=== PATIENT | male | born 1960 | race Caucasian/White ===

== ENCOUNTER 2020-03-18 07:46 | Day surgery (SDC) | payer BC, SELFPAY ==
[2020-03-18] VITALS (9 sets, daily range): BP systolic 108–162; BP diastolic 68–101; PULSE 69–88; RESP 14–18; TEMP 36.4–37; O2SAT 94–100
--- NOTE | ~2020-03-18 | XR_ITS ---
EXAMINATION: XR abdomen/kub 1V DATE: 03/18/2020 09:17 INDICATION: Right flank pain. TECHNIQUE: A supine view of the abdomen on 2 radiographs was obtained. COMPARISON: CT abdomen and pelvis 03/18/2020 FINDINGS: There are no dilated loops of bowel. There is a 5 x 6 mm stone in proximal right ureter. IMPRESSION: 1. 5 x 6 mm stone in proximal right ureter. Reviewed, dictated and finalized at location A.
--- NOTE | ~2020-03-18 | CT_ITS ---
EXAMINATION: CT abdomen pelvis wo con EXAM DATE: 03/18/2020 08:45 INDICATION: Right flank pain. History of nephrolithiasis. TECHNIQUE: Spiral CT of the abdomen and pelvis was performed without contrast. Axial, coronal and sag ittal images were reviewed. The dose-length product (DLP) for this examination was 339.67 mGy-cm. T he exposure was tailored according to patient size (auto mA exposure control), and iterative reconstr uction (ASIR) was used as additional dose reduction technique. Comparison is made to prior examinatio n from 03/23/2016. FINDINGS: There is a stone in the proximal aspect of the right ureter, at the L3-4 disc space level m easuring 5 x 6 mm. There is mild to moderate right-sided obstructive nephropathy. Additional 3 mm rig ht inferior calyceal stone and 2 mm left superior calyceal stone. The prostate is unremarkable. The bladder is unremarkable. There is a left adrenal gland adenoma measuring 1.0 cm. Otherwise unremarka ble Gallbladder is unremarkable. No biliary obstruction. There is no retroperitoneal or pelvic lym phadenopathy. There is a left inguinal hernia which is moderate in size and contains nonobstructed sigmoid colon. Status post right inguinal hernia repair. The appendix is normal. There is mild sigmoid colonic diverticulosis. There is no adjacent inflammat ory change to suggest diverticulitis. The stomach and small bowel are unremarkable. There is expecte d amount of colonic stool. No free intraperitoneal gas. The heart is normal in size. There are n o pericardial or pleural effusions. The lung bases are unremarkable. There are no osteoblastic or o steolytic lesions identified. IMPRESSION: 1. Right proximal ureteral 5 x 6 mm stone, mild to moderate obstructive nephropathy. 2. Bilateral nephrolithiasis. 3. Left inguinal hernia containing nonobstructed sigmoid colon. 4. Mild colonic diverticulosis. Urologist consultants would appreciate KUB as baseline for follow-up, treatment planning. Reviewed, dictated and finalized at location A. IMPRESSION: 1. Right proximal ureteral 5 x 6 mm stone, mild to moderate obstructive nephro liliana. 2. Bilateral nephrolithiasis. 3. Left inguinal hernia containing nonobstructed sigmoid colon. 4. Mild colonic diverticulosis. Urologist consultants would appreciate KUB as baseline for follow-up, treatment planning.
--- NOTE | ~2020-03-18 | XR_ITS ---
EXAMINATION: XR retrograde pyelo w/stent RT DATE: 03/18/2020 12:05 INDICATION: Right ureteral stone. TECHNIQUE: 10 intraoperative fluoroscopic views of the abdomen and pelvis were obtained. I was not pr esent. Fluoroscopy exposure time was 48 seconds. COMPARISON: CT abdomen and pelvis 03/18/2010 FINDINGS: The right-sided retrograde pyelogram is unremarkable. The final images demonstrate a right internal ureteral stent in expected position. IMPRESSION: 1. Right internal ureteral stent in expected position. Reviewed, dictated and finalized at location A.
--- NOTE | 2020-03-18 08:02 | ED.GENADULT ---
HPI - General Adult General Chief complaint: Back Pain/Injury Stated complaint: Flank Pain Time Seen by Provider: 03/18/20 08:02 Source: patient Mode of arrival: ambulatory Limitations: no limitations History of Present Illness HPI narrative: Patient is a 59-year-old male who presents for evaluation of right flank pain. Flank pain became severe this morning after being dull and aching yesterday. Associated with nausea, no emesis. No fever, associated with hematuria and some pressure with urination. No dysuria. Patient states he has a history of nephrolithiasis approximately 5 years previously. Does not currently follow with any urologist. Pain is sharp, stabbing in nature in the right flank. Not worsened with movement. Related Data Home Medications Medication Instructions Recorded Confirmed Januvia 100 mg PO DAILY 03/18/20 03/18/20 leflunomide 20 mg PO DAILY 03/18/20 03/18/20 metformin 500 mg PO QPM 03/18/20 03/18/20 prednisone 10 mg PO DAILY 03/18/20 03/18/20 simvastatin 20 mg PO DAILY 03/18/20 03/18/20 Allergies Allergy/AdvReac Type Severity Reaction Status Date / Time neomycin Allergy Intermediate Rash Verified 03/18/20 08:12 Review of Systems Review of Systems: Narrative: CONSTITUTIONAL: Denies fever CARDIOVASCULAR: Denies chest pain RESPIRATORY: Denies cough or dyspnea. GASTROINTESTINAL: Denies abdominal pain, reports right flank pain : Reports hematuria, hesitancy SKIN: Denies rash MUSCULOSKELETAL: Denies back pain NEUROLOGIC: Denies headache PMFSH Past Medical History Medical History Diabetes Hyperlipidemia Nephrolithiasis Sleep apnea Surgical History Surgical History H/O inguinal hernia repair Family History Family History Other Diabetes mellitus Social History Social History Smoking status: Former smoker Alcohol intake: current Gender identity (if verbalized by the patient): Male Exam Narrative: Exam Narrative: GENERAL: Awake, alert, conversant, uncomfortable. HEAD: Normocephalic, atraumatic. EYES: PERRLA and EOMI. ENT: Nares clear, no rhinorrhea or epistaxis. Mucous membranes moist. NECK: Supple. CHEST: No respiratory distress, breathing even and non labored HEART: Regular rate, sinus rhythm ABDOMEN:Non distended, non tender, no reproducible flank tenderness EXTREMITIES: Normal range of motion. No edema. SKIN: Warm, dry, no rash. NEURO:No focal deficits. Alert and oriented x3 Course Vital Signs Vital signs: Vital Signs Temperature 36.6 C 03/18/20 08:08 Pulse Rate 77 03/18/20 08:08 Respiratory Rate 18 03/18/20 08:08 Blood Pressure 162/101 H 03/18/20 08:08 Pulse Oximetry 98 03/18/20 08:08 Temperature 36.8 C 03/18/20 12:20 Pulse Rate 80 03/18/20 13:25 Respiratory Rate 16 03/18/20 13:25 Blood Pressure 108/68 03/18/20 13:25 Pulse Oximetry 94 03/18/20 12:35 Medical Decision Making [facility] Narrative Medical decision making narrative: Patient is a 5-year-old with a history of nephrolithiasis who presented for evaluation of right flank pain. The time of initial assessment, patient is quite uncomfortable appearing. Symptoms do seem most consistent with renal colic. IV access obtained and labs were drawn. Patient was given IV fluids, antiemetic and pain medication. He did require numerous doses of IV pain medication in the ER. Patient with a 5 x 6 mm proximal right ureteral stone. No GUICHO. Given size, location, urology was consulted, Dr. Ospina will choose to take this patient to the OR for stenting. Given high blood cells present in urinalysis, patient was given Rocephin in the emergency department. Patient transferred to the OR waiting area in stable condition. Differential Diagnosis Differential
[2020-03-18 08:13] LABS: Basophils Absolute Auto 0.1 K/mm3 (0.0-0.1); Basophils Percent Auto 0.9 % (0.2-1.2); Eosinophils Absolute Auto 0.3 K/mm3 (0-0.3); Eosinophils Percent Auto 3.4 % (0-4.4); Hematocrit 42.8 % (42.0-52.0); Hemoglobin 14.1 g/dL (14.0-18.0); Immature Granulocyte Absolute 0.03 K/mm3 (0.00-0.031); Immature Granulocyte Percent A 0.4 % (0-0.5); Lymphocytes Absolute Auto 2.06 K/mm3 (0.9-3.2); Lymphocytes Percent Auto 27.9 % (18.3-44.2); Mean Corpuscular HGB Conc 32.9 g/dl (32-36); Mean Corpuscular Hemoglobin 28.7 pg (26-34); Mean Platelet Volume 10.7 fl (7.4-10.4); Monocytes Absolute Auto 0.7 K/mm3 (0.1-0.6); Monocytes Percent Auto 8.8 % (2.6-8.5); Neutrophils Absolute Auto 4.3 K/mm3 (1.3-6.7); Neutrophils Percent Auto 58.6 % (45.5-73.1); Platelet Count Result 161 k/mm3 (150-375); Red Blood Count 4.92 M/mm3 (4.6-6.20); Red Cell Distribution Width 13.1 % (11.5-14.5); White Blood Count 7.4 K/mm3 (4.5-10.0)
[2020-03-18 08:26] LABS: Alanine Aminotransferase 27 U/L (4-50); Albumin Level 4.3 g/dL (3.5-5.1); Alkaline Phosphatase 47 U/L (38-126); Aspartate Amino Transferase 26 U/L (17-59); Bilirubin,Total 0.5 mg/dL (0.2-1.3); Blood Urea Nitrogen 23 mg/dL (9-20); Calcium 9.2 mg/dL (8.4-10.2); Carbon Dioxide 26 mmol/L (22-30); Chloride 102 mmol/L (98-107); Estimated CRCL calculation 118 ml/min; Estimated Glomerular Filt Rate > 60; Glucose 219 mg/dL (75-110); Lipase 362 U/L (23-300); Potassium 4.3 mmol/L (3.4-5.0); Sodium 137 mmol/L (137-145)
[2020-03-18] MEDS: SODIUM CHLORIDE 0.9% IV 1,000 ML 999 ML IV CONT (08:28)
[2020-03-18] MEDS: ONDANSETRON INJ 4 MG/2 ML VIAL IV PUSH (08:28)
[2020-03-18] MEDS: MORPHINE SULFATE 4 MG/ML INJ IV PUSH (08:30)
[2020-03-18 09:50] LABS: Add Urine Microscopic? YES; Appearance Urine Cloudy (Clear); Bilirubin Urine Negative (Negative); Blood Urine 3+ (Negative); Color Urine Yellow (Yellow); Glucose Urine UA 2+ mg/dL (Negative); Ketones Urine Negative (Negative); Leukocyte Esterase Ur Negative LEU/UL (Negative); Mucus Urine Rare /lpf; Nitrate Urine Negative (Negative); Protein Urine 2+ mg/dL (Negative); RBC Urine >75 /hpf (0-2); Specific Grav Ur 1.025 (1.001-1.035); Urobilinogen Urine Negative mg/dL (<2.0); WBC Urine 51-75 /hpf
--- NOTE | 2020-03-18 10:05 | PM.IMHP ---
H&P: HPI History of Present Illness Chief complaint: Flank Pain Narrative: Darinel Arteaga is a 59 year old male Who presented to the emergency room with right flank pain. Evaluation revealed a 5-6 mm obstructing proximal right ureteral calculus with hydronephrosis. There were having difficulty controlling his pain in the emergency room. Does state that he has had a history of stones many years ago. Will proceed with cystoscopy with right retrograde pyelogram and stent placement at a minimum. Will most likely require outpatient lithotripsy at a later point time. [facility] Past Medical History Medical History Diabetes Hyperlipidemia Nephrolithiasis Sleep apnea Surgical History Surgical History H/O inguinal hernia repair Family History Family History Other Diabetes mellitus Social History Social History Smoking status: Former smoker Alcohol intake: current Gender identity (if verbalized by the patient): Male Meds Home Medications and Allergies Home Medications Medication Instructions Recorded Confirmed Type leflunomide mg 03/18/20 History metformin mg PO 03/18/20 History prednisone 10 mg 03/18/20 History simvastatin mg 03/18/20 History sitagliptin [Januvia] mg 03/18/20 History Allergies Allergy/AdvReac Type Severity Reaction Status Date / Time neomycin Allergy Intermediate Rash Verified 03/18/20 08:12 Vital Signs Vital Signs - 24 hr 03/18/20 08:08 03/18/20 09:27 Temperature 36.6 C Pulse Rate 77 83 Respiratory Rate 18 18 Blood Pressure 162/101 H 148/86 H Pulse Oximetry 98 97 Exam Const: General: uncomfortable HENMT: General nose exam: Normal nares present Resp: Effort & Inspection: normal respiratory effort Cardio: Rhythm: regular rhythm H&P: Results Labs Labs: Short CBC 03/18/20 Range/Units 08:06 WBC 7.4 (4.5-10.0) K/mm3 Hgb 14.1 (14.0-18.0) g/dL Hct 42.8 (42.0-52.0) % Plt Count 161 (150-375) k/mm3 BMP 03/18/20 08:06 Sodium 137 Potassium 4.3 Chloride 102 Carbon Dioxide 26 BUN 23 H Creatinine 0.80 Glucose 219 H Calcium 9.2 Liver Function 03/18/20 Range/Units 08:06 Total Bilirubin 0.5 (0.2-1.3) mg/dL AST 26 (17-59) U/L ALT 27 (4-50) U/L Alkaline Phosphatase 47 (38-126) U/L Albumin 4.3 (3.5-5.1) g/dL Urine 03/18/20 Range/Units 09:37 Urine Color Yellow (Yellow) Urine Appearance Cloudy H (Clear) Urine pH 7.0 (5.0-9.0) Ur Specific [place] 1.025 (1.001-1.035) Urine Protein 2+ H (Negative) mg/dL Urine Glucose (UA) 2+ H (Negative) mg/dL Assessment and Plan Assessment and plan (1) Right ureteral calculus: Code(s): N20.1 - Calculus of ureter Status: Acute Assessment and Plan: plan is for cystoscopy right retrograde pyelogram right stent placement. If the stone has migrated will possibly try ureteroscopy with stone extraction and laser. If the stone is still located fairly proximally then he will require outpatient lithotripsy.
[2020-03-18] MEDS: LACTATED RINGERS 1,000 ML 30 ML IV CONT ×2 (10:20→12:29)
--- NOTE | 2020-03-18 10:39 | ECG_ITS ---
Measurements Intervals [place] Rate: 71 P: 22 NM: 159 QRS: 50 QRSD: 108 T: 39 QT: 379 QTc: 415 Interpretive Statements SINUS RHYTHM NORMAL ECG Electronically Signed On 03-18-2020 10:53:24 CDT by Riky Asif D.O.
--- NOTE | 2020-03-18 10:40 | WPDANESEPPF ---
Anes - Initial Pre Proc Eval Procedure: Operation Date: 03/18/20 11:00 Proposed Procedures p Cystoscopy, Right Retrograde Pyelogram, Right Stent Placement, Possible Right Ureteroscopy with Stone Extraction - Bryan Ospina MD s Possible Holmium Laser Procedure - Bryan Ospina MD Date/Time: 03/18/20 10:40 Surgeon: Bryan Ospina MD Pre Op Diagnosis: Flank Pain Patient Data Age: 59 Gender: M Height: 6 ft 4 in Weight: 113.4 kg Last Vital Signs Temp 98.6 F 03/18/20 10:28 Pulse 69 03/18/20 10:28 Resp 18 03/18/20 10:28 BP 154/85 H 03/18/20 10:28 Pulse Ox 99 03/18/20 10:28 Allergies Allergy/AdvReac Type Severity Reaction Status Date / Time neomycin Allergy Intermediate Rash Verified 03/18/20 08:12 Home Medications Medication Instructions Recorded Confirmed Type leflunomide 20 mg PO DAILY 03/18/20 03/18/20 History metformin mg PO 03/18/20 History prednisone 10 mg 03/18/20 History simvastatin mg 03/18/20 History sitagliptin [Januvia] mg 03/18/20 History Laboratory Tests 03/18/20 03/18/20 03/18/20 08:06 08:06 08:06 WBC 7.4 K/mm3 K/mm3 (4.5-10.0) RBC 4.92 M/mm3 M/mm3 (4.6-6.20) Hgb 14.1 g/dL g/dL (14.0-18.0) Hct 42.8 % % (42.0-52.0) MCV 87.0 fl fl (80-100) MCH 28.7 pg pg (26-34) MCHC 32.9 g/dl g/dl (32-36) RDW 13.1 % % (11.5-14.5) Plt Count 161 k/mm3 k/mm3 (150-375) MPV 10.7 fl H fl (7.4-10.4) Immature Gran % (Auto) 0.4 % % (0-0.5) Neut % (Auto) 58.6 % % (45.5-73.1) Lymph % (Auto) 27.9 % % (18.3-44.2) [place] % (Auto) 8.8 % H % (2.6-8.5) Eos % (Auto) 3.4 % % (0-4.4) Baso % (Auto) 0.9 % % (0.2-1.2) Lymph # (Auto) 2.06 K/mm3 K/mm3 (0.9-3.2) [place] # (Auto) 0.7 K/mm3 H K/mm3 (0.1-0.6) Eos # (Auto) 0.3 K/mm3 K/mm3 (0-0.3) Baso # (Auto) 0.1 K/mm3 K/mm3 (0.0-0.1) Abs Immat Gran (auto) 0.03 K/mm3 K/mm3 (0.00-0.031) Absolute Neuts (auto) 4.3 K/mm3 K/mm3 (1.3-6.7) Absolute Nucleated RBC 0.0 K/mm3 K/mm3 (0.0-0.012) Nucleated RBC % 0.0 % % (0.0-0.2) Sodium 137 mmol/L mmol/L (137-145) Potassium 4.3 mmol/L mmol/L (3.4-5.0) Chloride 102 mmol/L mmol/L (98-107) Carbon Dioxide 26 mmol/L mmol/L (22-30) BUN 23 mg/dL H mg/dL (9-20) Creatinine 0.80 mg/dL mg/dL (0.7-1.3) Estim Creat Clear Calc 118 ml/min ml/min Estimated GFR > 60 (59 - ) Glucose 219 mg/dL H mg/dL (75-110) Calcium 9.2 mg/dL mg/dL (8.4-10.2) Total Bilirubin 0.5 mg/dL mg/dL (0.2-1.3) AST 26 U/L U/L (17-59) ALT 27 U/L U/L (4-50) Alkaline Phosphatase 47 U/L U/L (38-126) Total Protein 7.0 g/dL g/dL (6.3-8.2) Albumin 4.3 g/dL g/dL (3.5-5.1) Lipase 362 U/L H U/L (23-300) Urine Color Urine Appearance Urine pH Ur Specific [place] Urine Protein Urine Glucose (UA) Urine Ketones Ur Blood (Man) Urine Nitrate Urine Bilirubin Urine Urobilinogen Leukocyte Esterase Rfl Urine RBC Urine WBC Urine Mucus 03/18/20 09:37 WBC RBC Hgb Hct MCV MCH MCHC RDW Plt Count MPV Immature Gran % (Auto) Neut % (Auto) Lymph % (Auto) [place] % (Auto) Eos % (Auto) Baso % (Auto) Lymph # (Auto) [place] # (Auto) Eos # (Auto) Baso # (Auto) Abs Immat Gran (auto) Absolute Neuts (auto) Absolute Nucleated RBC Nucleated RBC % Sodium Potassium
[2020-03-18] MEDS: LIDOCAINE HCL 2% GEL UROJET 10 ML PKG MUCOUS MEM (11:04)
--- NOTE | 2020-03-18 11:42 | PM.PROC ---
Procedure Note - Detailed Date of procedure: 03/18/20 Pre-op diagnosis: Flank Pain 6 mm right proximal ureteral calculus Post-op diagnosis: same Procedure performed: cystoscopy, right retrograde pyelogram, right ureteroscopy with holmium laser stone, stone extraction, right ureteral stent placement 4.8 [place] conto Surgeon: Bryan Ospina MD Drains: Yes Packing: No Pathology: yes Complications: No immediate complications Condition: stable Disposition: PACU
[2020-03-18 11:57] LABS: Glucose Point of Care 208 (65-105)
--- NOTE | 2020-03-18 12:01 | SUR.PHASEI ---
PT SHIVERING. CHEIKH HUROSARIOER APPLIED
== END 2020-03-18 14:05 | disposition home or self-care (01) ==
LOC: ANHED 10:00 → ANHSURGERY 10:04
PROVIDERS: Emergency Provider Emergency Medicine; PCP Family Medicine Adolescent Medicine; Visit Provider Urology
PROC: (CPT 52352; principal; 2020-03-18 11:00)
PROC: (CPT 52356; 2020-03-18 11:00)
DX: N13.2 Hydronephrosis with renal and ureteral calculous obstruction (principal); E11.9 Type 2 diabetes mellitus without complications; E78.5 Hyperlipidemia, unspecified; G47.30 Sleep apnea, unspecified; Z79.84 Long term (current) use of oral hypoglycemic drugs; Z87.891 Personal history of nicotine dependence
CPT/HCPCS: 52356; 36415; 74018; 74176; 74420; 80053; 81001; 82365; 83690; 85025; 87086; 88300; 93005; 96361; 96365; 96375; 99285; A9270; C1758; C1769; C2617; J0131; J0330; J0696; J1170; J2270; J2405; J2704; J3010; J7030; J7120; Q9966

== ENCOUNTER → 2020-09-30 17:00 | Outpatient (CLI) | payer BC, SELFPAY ==
--- NOTE | ~2020-09-30 | MR_ITS ---
EXAMINATION: MR shoulder LT wo con DATE: 09/30/2020 17:54 INDICATION: Left shoulder pain. TECHNIQUE: Magnetic resonance imaging (MRI) of the left shoulder was performed without intravenous co ntrast. Sequences included axial PD-weighted FS FSE, coronal oblique PD-weighted FS FSE and T2-weight ed FS FSE, and sagittal oblique T2-weighted FS FSE and T1-weighted FSE. COMPARISON: None. FINDINGS: Coracoacromial arch: The acromion undersurface is curved in morphology (type II). There is severe acromioclavicular joint osteoarthritis including inferiorly directed osteophytes. There is moderate subacromial/subdeltoid bu rsitis. Rotator cuff: There is a full-thickness tear of supraspinatus and infraspinatus tendons measuring 4.3 cm anterior t o posterior by 5.5 cm proximal to distal. Teres minor tendon is normal. There is mild subscapularis t endinopathy. There is edema in the supraspinatus and infraspinatus muscle bellies. There is mild fatt y atrophy of infraspinatus muscle belly. Biceps tendon and glenoid labrum: Biceps tendon is in bicipital groove. There is a partial tear of intra-articular biceps tendon. There is degeneration of the glenoid labrum without well-defined tear. Fluid: There is a moderate-sized glenohumeral joint effusion. Bones/cartilage: There is shallow partial-thickness cartilage loss of glenoid. Humeral head cartilage is normal. IMPRESSION: 1. Massive full-thickness rotator cuff tear. Edema in supraspinatus and infraspinatus muscle bellies may be subacute denervation or strains. 2. Partial-thickness tear of biceps tendon. 3. Mild glenoid chondrosis. 4. Moderate-sized glenohumeral joint effusion and moderate subacromial/subdeltoid bursitis. 5. Severe acromioclavicular joint osteoarthritis. Reviewed, dictated and finalized at location A. ERCIAL SHRIMPING CAPTAIN IMPRESSION: 1. Massive full-thickness rotator cuff tear. Edema in supraspinatus and infrasp inatus muscle bellies may be subacute denervation or strains. 2. Partial-thickness tear of biceps tendon. 3. Mild glenoid chondrosis. 4. Moderate-sized glenohumeral joint effusion and moderate subacromial/subdelto id bursitis. 5. Severe acromioclavicular joint osteoarthritis.
== END ==
PROVIDERS: PCP Family Medicine Adolescent Medicine; Visit Provider Family Medicine Adolescent Medicine
DX: M75.102 Unspecified rotator cuff tear or rupture of left shoulder, not specified as traumatic (principal); M19.012 Primary osteoarthritis, left shoulder; M25.412 Effusion, left shoulder
CPT/HCPCS: 73221

== ENCOUNTER → 2020-11-04 17:59 | Outpatient (CLI) | payer BC, SELFPAY ==
--- NOTE | ~2020-11-04 | DEXA_ITS ---
Bone Density Report Name: Darinel Arteaga Age: 60 Sex: Male Ethnicity: White Date of : 1960 Indication: history of glucocorticoids; rheumatoid arthritis; Referring Provider: Terrence, Cristóbal Yung Study: Bone densitometry was performed. Exam Date: November 04, 2020 Accession number: [id number] Bone Density: Region BMD T-score Z-score Classification AP Spine (L1-L4) 1.248 1.4 2.1 Normal Femoral Neck (Left) 1.068 1.0 2.0 Normal Total Hip (Left) 1.291 1.7 2.2 Normal Femoral Neck (Right) 1.047 0.9 1.8 Normal Total Hip (Right) 1.242 1.4 1.8 Normal Total Hip Mean 1.267 1.6 2.0 Normal World Health Organization criteria for BMD impression classify patients as: Normal (T-score at or above -1.0), Osteopenia (T-score between -1.0 and -2.5), or Osteoporosis (T-score at or below -2.5). 10-year Fracture Risk: FRAX not reported because: All T-scores for Spine Total, Hip Total, Femoral Neck at or above -1.0 Clinical Information Provided by Patient: Has taken Glucocorticoids Has rheumatoid arthritis Has used the following medications: Vitamin D, Calcium Patient maximum height was 70 No regular weight bearing exercise Does not regularly consume dairy products Drinks caffeinated beverages Impression: The patient has normal bone mass. The patient has risk factors, including: history of glucocorticoid therapy. Discussion: BONE DENSITY IS ABOVE THE MINIMUM DESIRABLE LEVEL AT ALL SKELETAL SITES TESTED. This patient?s bone mineral density is above the minimum desirable level (T-score -1.0 or better) at all sites measured. The patient should follow a healthful lifestyle (good nutrition with adequate calcium and vitamin D, and appropriate weight-bearing exercise). Follow-Up: Consider repeating this study in 5 years or sooner if there is some new clinical indication. Reported by: BRISSA on 11/04/2020 6:24:00 PM. Reviewed, dictated and finalized at location AChad STEPHENS
== END ==
PROVIDERS: Visit Provider Internal Medicine Rheumatology
DX: Z51.81 Encounter for therapeutic drug level monitoring (principal); Z79.52 Long term (current) use of systemic steroids; M06.9 Rheumatoid arthritis, unspecified
CPT/HCPCS: 77080

== ENCOUNTER → 2021-01-07 00:17 | Outpatient (CLI) | payer BC, SELFPAY ==
[2021-01-07 17:04] LABS: SARS-CoV-2 RNA PCR Negative
== END ==
PROVIDERS: PCP Family Medicine Adolescent Medicine; Visit Provider Orthopaedic Surgery
DX: Z01.812 Encounter for preprocedural laboratory examination (principal); Z20.822 Contact with and (suspected) exposure to COVID-19
CPT/HCPCS: 36415; 80048; 93005; C9803; U0003; U0005

== ENCOUNTER 2021-01-07 07:40 | Outpatient (CLI) | payer BC, SELFPAY ==
--- NOTE | 2021-01-07 07:57 | ECG_ITS ---
Measurements Intervals [facility] Rate: 84 P: 63 [place]: 173 QRS: 42 QRSD: 108 T: 39 QT: 344 QTc: 407 Interpretive Statements SINUS RHYTHM BORDERLINE R WAVE PROGRESSION, ANTERIOR LEADS BASELINE ARTIFACT- III BORDERLINE ECG Electronically Signed On 01-07-2021 8:08:50 CDT by Riky Asif D.O.
[2021-01-07 09:08] LABS: Anion Gap 4 mmol/L (8-16); Blood Urea Nitrogen 21 mg/dL (9-20); Calcium 9.5 mg/dL (8.4-10.2); Carbon Dioxide 32 mmol/L (22-30); Chloride 103 mmol/L (98-107); Estimated Glomerular Filt Rate > 60; Glucose 125 mg/dL (75-110); Potassium 3.7 mmol/L (3.4-5.0); Sodium 139 mmol/L (137-145)
== END 2021-01-07 07:41 | disposition home or self-care (01) ==
LOC: ANHSURGERY 07:44
PROVIDERS: Anesthesiology; PCP Family Medicine Adolescent Medicine; Visit Provider Orthopaedic Surgery
DX: Z01.818 Encounter for other preprocedural examination (principal); E11.9 Type 2 diabetes mellitus without complications
CPT/HCPCS: 36415; 80048; 93005

== ENCOUNTER 2022-08-31 11:01 | Outpatient (CLI) | payer BC, SELFPAY ==
--- NOTE | ~2022-08-31 | XR_ITS ---
XR wrist RT min 3V DATE: 08/31/2022 11:34 INDICATION: Right wrist pain, swelling TECHNIQUE: 4 views COMPARISON: None FINDINGS: There is a small rotated mildly posteriorly displaced dorsal cortical fracture of the triqu etrum bone which appears recent. No other fracture or dislocation is detected. There is new obliteration of the triscaphe joint space. Osteoarthritic change is noted at the metacarpophalangeal joints. IMPRESSION: Small dorsal triquetrum cortical fracture Polyarticular osteoarthritis Reviewed, dictated and finalized at location L. TICAL MINISTRIES PROFESSOR
--- NOTE | ~2022-08-31 | XR_ITS ---
XR knee LT 2V DATE: 08/31/2022 11:34 INDICATION: Left knee pain, swelling. No known injury. TECHNIQUE: Standing AP and lateral views COMPARISON: None FINDINGS: Suprapatellar knee joint effusion. There is mild periarticular spurring of the patella. Medial and lateral compartment joint spaces are well preserved. No fracture or dislocation, periosteal reaction or bone destruction. No radiopaque intra-articular lo ose body or chondrocalcinosis is evident. Femoral, popliteal and trifurcation artery calcifications. Possible calcified popliteal artery aneury sm. IMPRESSION: Patellar knee joint effusion Patellofemoral osteoarthritis Arterial calcifications; cannot exclude calcified popliteal artery aneurysm. Reviewed, dictated and finalized at location L. OGRAPH II ENGRAVER
--- NOTE | ~2022-08-31 | XR_ITS ---
XR knee RT 2V DATE: 08/31/2022 11:34 INDICATION: Right knee pain and swelling. No known injury. TECHNIQUE: Standing AP and lateral views COMPARISON: None FINDINGS: There is distention of the suprapatellar bursa consistent with suprapatellar knee joint eff usion. There is mild to moderate periarticular spurring of the patella. There is slight periarticular spurri ng at the medial and lateral compartments but medial and lateral compartment joint spaces appear well preserved. No fracture or dislocation, periosteal reaction or bone destruction, radiopaque intra-articular loose body or chondrocalcinosis is noted. Femoral, popliteal and trifurcation artery calcifications. IMPRESSION: Suprapatellar knee joint effusion Osteoarthritis Arterial calcifications Reviewed, dictated and finalized at location L. INAL MANAGER
--- NOTE | ~2022-08-31 | XR_ITS ---
XR hand RT min 3V DATE: 08/31/2022 11:34 INDICATION: Right hand pain and swelling TECHNIQUE: 3 views COMPARISON: None FINDINGS: There is severe narrowing at the triscaphe joint. There is joint space narrowing and spurri ng at the metatarsophalangeal joints, most severe at the first, in addition to osteoarthritic change at some of the interphalangeal joints, primarily involving the distal interphalangeal joints, most pr ominent at the second digit. No fracture or dislocation, periosteal reaction or bone destruction is detected. IMPRESSION: Polyarticular osteoarthritis Reviewed, dictated and finalized at location L. RONMENTAL COORDINATOR
== END 2022-08-31 11:02 | disposition home or self-care (01) ==
PROVIDERS: PCP Family Medicine Adolescent Medicine; Visit Provider Physician Assistant
DX: M79.641 Pain in right hand (principal); M25.562 Pain in left knee; M25.561 Pain in right knee; M25.531 Pain in right wrist; M25.462 Effusion, left knee; M25.461 Effusion, right knee; I70.203 Unspecified atherosclerosis of native arteries of extremities, bilateral legs; S62.111A Displaced fracture of triquetrum [cuneiform] bone, right wrist, initial encounter for closed fracture; M15.9 Polyosteoarthritis, unspecified; T14.90XA Injury, unspecified, initial encounter
CPT/HCPCS: 73110; 73130; 73560

== ENCOUNTER 2022-09-21 08:56 | Outpatient (CLI) | payer BC, SELFPAY ==
--- NOTE | ~2022-09-21 | XR_ITS ---
EXAMINATION: XR lg joint inject/asp w image DATE: 09/21/2022 10:31 INDICATION: Right knee joint effusion. TECHNIQUE: A time-out was performed to verify the patient's name, date of , and procedure to b e performed. The procedure including the risks, benefits, and alternatives was discussed with the pat ient. Risks discussed included bleeding and infection. The patient understood the risks and agreed to proceed. The skin overlying the right knee joint was prepped and draped in usual sterile fashion. Anesthetic was administered with 1% lidocaine subcutaneously. An 18 G needle was advanced under fluo roscopic guidance into the joint. Fluid was aspirated. The needle was removed and the entry site was cleaned and dressed. There were no immediate complications. Fluoroscopy exposure time was 0.0 minut es. The total number of images was 1. FINDINGS: Real-time fluoroscopy demonstrates localization of the right knee joint. IMPRESSION: 1. Fluoroscopy guided right knee joint aspiration yielding 60 mL yellow fluid. Reviewed, dictated and finalized at location A. ER PLATE LITHOGRAPHER
--- NOTE | ~2022-09-21 | XR_ITS ---
EXAMINATION: XR lg joint inject/asp add DATE: 09/21/2022 10:35 INDICATION: Left knee joint effusion. TECHNIQUE: A time-out was performed to verify the patient's name, date of , and procedure to b e performed. The procedure including the risks, benefits, and alternatives was discussed with the pat ient. Risks discussed included bleeding and infection. The patient understood the risks and agreed to proceed. The skin overlying the left knee joint was prepped and draped in usual sterile fashion. A nesthetic was administered with 1% lidocaine subcutaneously. An 18 G needle was advanced under fluor oscopic guidance into the joint. Fluid was aspirated. The needle was removed and the entry site was c leaned and dressed. There were no immediate complications. Fluoroscopy exposure time was 0.0 minutes . The total number of images was 1. FINDINGS: Real-time fluoroscopy demonstrates localization of the left knee joint. IMPRESSION: 1. Fluoroscopy guided left knee joint aspiration yielding 5 mL violeta-colored fluid. Reviewed, dictated and finalized at location A. TRIC SHAVER MECHANIC IMPRESSION: 1. Fluoroscopy guided left knee joint aspiration yielding 5 mL violeta-colored fl uid.
[2022-09-21 11:34] LABS: Source Synovial Fluid Synovial fluid
[2022-09-21 11:35] LABS: Appearance Synovial Fluid Cloudy (Clear); Color Synovial Fluid Other (Colorless)
[2022-09-21 12:01] LABS: Appearance Synovial Fluid Hazy (Clear); Color Synovial Fluid Yellow (Colorless); Crystals Synovial Fluid None Seen (None Seen); Lymphocytes Synovial Fluid 16 %; Neutrophils Synovial Fluid 74 % (0-25); Nucleated Cell Synovial Fluid 8944 /uL (0-200); RBC Synovial Fluid 1653 /uL (0-0); Source Synovial Fluid Synovial fluid
[2022-09-21 12:01] LABS: Crystals Synovial Fluid None Seen (None Seen)
[2022-09-21 12:02] LABS: Monocytes Synovial Fluid 8 %; Other Cells Synovial Fluid 2 %
[2022-09-21 12:04] LABS: Lymphocytes Synovial Fluid 20 %; Neutrophils Synovial Fluid 75 % (0-25)
[2022-09-21 12:05] LABS: Monocytes Synovial Fluid 5 %
== END 2022-09-21 08:57 | disposition home or self-care (01) ==
PROVIDERS: PCP Family Medicine Adolescent Medicine; Visit Provider Nurse Practitioner
DX: M17.0 Bilateral primary osteoarthritis of knee (principal); M25.461 Effusion, right knee; M25.462 Effusion, left knee
CPT/HCPCS: 20610; 77002; 87070; 87075; 87205; 89051; 89060

== ENCOUNTER 2022-11-02 09:37 | Outpatient (CLI) | payer BC, SELFPAY ==
[2022-11-02 10:31] LABS: Hematocrit 40.5 % (42.0-52.0); Hemoglobin 12.5 g/dL (14.0-18.0); Mean Corpuscular HGB Conc 30.9 g/dl (32-36); Mean Corpuscular Hemoglobin 24.7 pg (26-34); Mean Platelet Volume 9.6 fl (7.4-10.4); Platelet Count Result 303 k/mm3 (150-375); Red Blood Count 5.06 M/mm3 (4.6-6.20); Red Cell Distribution Width 16.1 % (11.5-14.5); White Blood Count 8.5 K/mm3 (4.5-10.0)
[2022-11-02 10:42] LABS: Cholesterol 125 mg/dL (0-200); HDL Direct 34 mg/dL; Triglycerides 117 mg/dL (<150)
[2022-11-02 10:44] LABS: Appearance Urine Clear (Clear); Bacteria Urine None Seen /hpf; Bilirubin Urine 1+ (Negative); Blood Urine Negative (Negative); Color Urine Dark Yellow (Yellow); Glucose Urine UA Negative (Negative); Ketones Urine Trace mg/dL (Negative); Leukocyte Esterase Ur Trace LEU/UL (Negative); Need Manual Microscopic Reviewed; Nitrate Urine Negative (Negative); Protein Urine 2+ mg/dL (Negative); Specific Grav Ur 1.031 (1.001-1.035); Squamous Epithelial Cell Urine None seen /hpf (Few); WBC Urine 0-5 /hpf; pH Urine 6.5 (5.0-9.0)
[2022-11-02 10:44] LABS: Rheumatoid Factor < 8.6 IU/ML (<12)
[2022-11-02 10:47] LABS: Alanine Aminotransferase 30 U/L (6-50); Albumin Level 4.3 g/dL (3.5-5.1); Alkaline Phosphatase 70 U/L (38-126); Anion Gap 9 mmol/L (8-16); Aspartate Amino Transferase 23 U/L (17-59); Bilirubin,Total 0.6 mg/dL (0.2-1.3); Blood Urea Nitrogen 21 mg/dL (9-20); CRP 1.8 mg/dL (<1.0); Calcium 9.4 mg/dL (8.4-10.2); Carbon Dioxide 27 mmol/L (22-30); Chloride 100 mmol/L (98-107); Estimated Glomerular Filt Rate > 60; Glucose 120 mg/dL (65-110); Potassium 4.1 mmol/L (3.4-5.0); Sodium 136 mmol/L (137-145); Uric Acid 3.5 mg/dL (3.5-8.5)
[2022-11-02 10:53] LABS: LDL Cholesterol Direct 54 mg/dL
[2022-11-02 11:24] LABS: Hepatitis B Surface Antigen Negative (Negative)
[2022-11-02 11:27] LABS: Erythrocyte Sedimentation Rate 49 mm/hr (0-20)
[2022-11-02 11:30] LABS: Add Urine Microscopic? YES
[2022-11-02 11:41] LABS: Hepatitis B Surface Anti Res Negative
[2022-11-02 11:44] LABS: Hepatitis C Virus Antibody Reactive (Negative)
[2022-11-04 16:45] LABS: Hepatitis C RNA, Quant PCR <15 IU/mL
[2022-11-05 05:13] LABS: Anti Cyclic Citrullinated Pept <16 Units (<20)
[2022-11-05 10:42] LABS: PNL A Neg Control 0; PNL B Corr Neg Control 1; T SPOT NEG CONTROL Passed; T SPOT POS CONTROL Passed; T Spot TB Result Negative (Negative)
== END 2022-11-02 09:38 | disposition home or self-care (01) ==
PROVIDERS: Physician Assistant; PCP Family Medicine Adolescent Medicine; Visit Provider Internal Medicine
DX: M06.09 Rheumatoid arthritis without rheumatoid factor, multiple sites (principal); M19.90 Unspecified osteoarthritis, unspecified site; E78.00 Pure hypercholesterolemia, unspecified
CPT/HCPCS: 36415; 80053; 80061; 81001; 84550; 85027; 85652; 86038; 86140; 86200; 86430; 86481; 86706; 86803; 87340; 87522

== ENCOUNTER → 2022-11-23 09:51 | Outpatient (CLI) | payer BC, SELFPAY ==
--- NOTE | ~2022-11-23 | CT_ITS ---
Noncontrast CT scan of the lumbar spine Clinical history back pain TECHNIQUE: Axial noncontrast imaging of the lumbar spine was performed. Sagittal and coronal reformat olayinka images were constructed. Dose reduction technique was used on this scan by utilizing automated ex posure control and iterative reconstruction technique. The dose-length product (DLP) was 958.90 mGy-c m. Findings: No acute fracture seen. Minimal grade 1 retrolisthesis of L4 over L5 noted. There is advanc ed degenerative disc narrowing at L5-S1. At L1-L2, there is no disc bulge or herniation. There is minimal facet arthropathy. No spinal canal s tenosis or neural foraminal narrowing evident. At L2-L3, there is minimal disc bulge with facet arthropathy. No spinal canal stenosis or definite ne ural foraminal narrowing. At L3-L4, there is mild disc bulge with facet arthropathy. No yann spinal canal stenosis. Probable m ild bilateral neural foraminal narrowing present. At L4-L5, there is disc bulge and facet arthropathy, resulting in probable at least mild central sen l stenosis. There is severe left neural foraminal narrowing and moderate right neural foraminal narro wing. At L5-S1, there is disc bulge and facet arthropathy. No yann spinal canal stenosis. There is moderat e bilateral neural foraminal narrowing. Paravertebral soft tissues are unremarkable. IMPRESSION: Minimal grade 1 retrolisthesis of L4 over L5. Mild to moderate degenerative spondylosis, as detailed above. Findings are worst at L4-L5. Reviewed, dictated and finalized at location M. IMPRESSION: Minimal grade 1 retrolisthesis of L4 over L5. Mild to moderate degenerative spondylosis, as detailed above. Findings are wors t at L4-L5.
--- NOTE | ~2022-11-23 | XR_ITS ---
AP and lateral views of the right hip Clinical history: Pain Findings: No acute fracture or dislocation is seen. Osseous alignment is anatomic. The right hip join t and right SI joint are preserved. Soft tissues are unremarkable. Impression: No significant abnormality is seen. Reviewed, dictated and finalized at [facility]. Impression: No significant abnormality is seen.
== END ==
PROVIDERS: PCP Family Medicine Adolescent Medicine; Visit Provider Physician Assistant
DX: M54.40 Lumbago with sciatica, unspecified side (principal); M25.551 Pain in right hip
CPT/HCPCS: 72131; 73502

== ENCOUNTER 2022-12-15 14:48 | Outpatient (CLI) | payer BC, SELFPAY ==
[2022-12-15 15:21] LABS: Hematocrit 37.4 % (42.0-52.0); Hemoglobin 11.5 g/dL (14.0-18.0); Mean Corpuscular HGB Conc 30.7 g/dl (32-36); Mean Corpuscular Hemoglobin 24.7 pg (26-34); Mean Corpuscular Volume 80.3 fl (80-100); Mean Platelet Volume 9.5 fl (7.4-10.4); Platelet Count Result 276 k/mm3 (150-375); Red Blood Count 4.66 M/mm3 (4.6-6.20); Red Cell Distribution Width 18.2 % (11.5-14.5); White Blood Count 7.1 K/mm3 (4.5-10.0)
[2022-12-15 15:30] LABS: Alanine Aminotransferase 27 U/L (6-50); Albumin Level 4.4 g/dL (3.5-5.1); Alkaline Phosphatase 59 U/L (38-126); Anion Gap 10 mmol/L (8-16); Aspartate Amino Transferase 21 U/L (17-59); Bilirubin,Total 0.5 mg/dL (0.2-1.3); Blood Urea Nitrogen 21 mg/dL (9-20); CRP 0.9 mg/dL (<1.0); Calcium 9.3 mg/dL (8.4-10.2); Carbon Dioxide 27 mmol/L (22-30); Chloride 103 mmol/L (98-107); Estimated Glomerular Filt Rate > 60; Glucose 173 mg/dL (65-110); Sodium 140 mmol/L (137-145); Uric Acid 3.4 mg/dL (3.5-8.5)
[2022-12-15 15:56] LABS: Appearance Urine Cloudy (Clear); Bacteria Urine None Seen /hpf; Bilirubin Urine 1+ (Negative); Blood Urine Negative (Negative); Calcium Oxalate Crystals Urine Present /hpf; Color Urine Dark Yellow (Yellow); Glucose Urine UA Negative (Negative); Hyaline Casts Urine Present /lpf; Ketones Urine Trace mg/dL (Negative); Leukocyte Esterase Ur Negative LEU/UL (Negative); Nitrate Urine Negative (Negative); Protein Urine 1+ mg/dL (Negative); RBC Urine 0-2 /hpf (0-2); Specific Grav Ur 1.034 (1.001-1.035); Squamous Epithelial Cell Urine None seen /hpf (Few); WBC Urine 0-5 /hpf
[2022-12-15 16:03] LABS: Erythrocyte Sedimentation Rate 34 mm/hr (0-20)
[2022-12-15 16:14] LABS: Add Urine Microscopic? YES
== END 2022-12-15 14:49 | disposition home or self-care (01) ==
LOC: ANHLAB 14:49
PROVIDERS: PCP Family Medicine Adolescent Medicine; Visit Provider Internal Medicine
DX: M06.09 Rheumatoid arthritis without rheumatoid factor, multiple sites (principal); M25.461 Effusion, right knee; M25.462 Effusion, left knee; M19.90 Unspecified osteoarthritis, unspecified site; M54.41 Lumbago with sciatica, right side
CPT/HCPCS: 36415; 80053; 81001; 84550; 85027; 85652; 86140

== ENCOUNTER 2023-01-10 08:44 | Outpatient (RCR) | payer BC, SELFPAY ==
--- NOTE | 2023-01-10 13:24 | PTOPEVDC ---
Assessment and note entered by Pieter De Souza, PT Thank you for referring Darinel Arteaga to [facility].? An evaluation has been completed. No further treatment is needed. Evaluation Information Assessment Status Evaluation Diagnosis Lumbago with sciatica R side Onset August of this year Subjective Information Patient reports that he has been dealing with back and radiating pain down to the toes on the R leg. He has gone to a different physical therapy clinic and developed a routine with the Bangladeshi ball that he likes and keeps the edge off of the pain along with increased in gabapentin. Patient has an appointment to discuss a surgical procedure with a neurosurgeon on 02/07/23. Reported Pain Level Pain Score Moderate Pain: Serna Alexander Additional Pain Score Comments Patient flucuates from moderate to severe pain. Assessment PT Clinical Summary Juan is a 62 year old male coming into the clinic with a diagnosis of lumbago with R side sciatica . The patient has decreased lumbar and lower extremity flexibility , slow painful movements. Patient very concerned about only having 20 covered therapy visits and having his back procedure, so together we decided to let patient continue to do his previous HEP and the gabapentin prior to the appointment with the neurosurgeon and then if warranted after that visit seeing the patient with an order from the neurosurgeon on what to focus on so he will have therapy sessions available either pre or post procedure. Plan of Care PT Services Indicated No Treatment Frequency and hold from formal physical therapy until he sees Duration the neurosurgeon.
== END 2023-01-10 13:56 | disposition home or self-care (01) ==
LOC: ANHPT 08:44
PROVIDERS: PCP Family Medicine Adolescent Medicine; Visit Provider Internal Medicine
DX: M54.41 Lumbago with sciatica, right side (principal)
CPT/HCPCS: 97161

== ENCOUNTER 2023-02-20 03:24 | Emergency (ER) | payer BC, SELFPAY ==
--- NOTE | ~2023-02-20 | CT_ITS ---
EXAMINATION: CT abdomen pelvis wo con DATE: 02/20/2023 04:14 INDICATION: Right flank pain TECHNIQUE: Computed tomography (CT) of the abdomen and pelvis was performed without intravenous contr ast. Automated exposure control and iterative reconstruction technique were employed. Exam dose: 496 .49 mGy-cm total exam DLP. COMPARISON: 03/18/2020 CT abdomen pelvis FINDINGS: Mild atelectasis, right lower lobe. Normal heart size. No pericardial or pleural effusion. No hepatic, splenic, pancreatic or right adrenal space-occupying mass lesion. 1.4 cm low-attenuation left adrenal mass consistent with adenoma. No renal mass lesion is evident on this limited noncontrast examination. There is a punctate nonobstr ucting upper pole right renal calculus. There is an approximately 6 x 10.5 mm right ureterovesical ejection calculus with attenuation of 1024 Hounsfield units. There is associated prominent right hydroureteronephrosis and extensive right memo nephric and periureteral stranding, mild fluid in the right paracolic gutter, likely due to pyelosinu s extravasation secondary to the distal right ureterovesical junction obstruction No left urinary tract calculus or left urinary tract obstruction or hydronephrosis. The urinary bladd er is unremarkable. There is a large left inguinal hernia containing nonobstructed nonstrangulated left colon diverticula . Status post right inguinal herniorrhaphy. Diverticulosis of left and right colon; no CT evidence of diverticulitis. No bowel obstruction, bowel wall thickening, pneumatosis or intraperitoneal free air. Normal caliber of the abdominal aorta. No intraperitoneal or retroperitoneal or pelvic mass lesion or adenopathy or ascites. Severe degenerative disc disease at L4-5 at L5-S1 with mild retrolisthesis. IMPRESSION: Obstructing 6 x 10.5 mm right ureterovesical junction calculus with prominent right hydr oureteronephrosis, pyelosinus extravasation, prominent right perinephric and periureteral stranding Pinpoint nonobstructing upper pole right renal calculus Left inguinal hernia containing nonobstructed nonstrangulated loop of descending colon Diverticulosis of left and right colon; no CT evidence of diverticulitis Status post right inguinal herniorrhaphy Small left adrenal adenoma Reviewed, dictated and finalized at Location A. Reviewed, dictated and finalized at location A. IMPRESSION: Obstructing 6 x 10.5 mm right ureterovesical junction calculus wit h prominent right hydroureteronephrosis, pyelosinus extravasation, prominent ri ght perinephric and periureteral stranding Pinpoint nonobstructing upper pole right renal calculus Left inguinal hernia containing nonobstructed nonstrangulated loop of descendin g colon Diverticulosis of left and right colon; no CT evidence of diverticulitis Status post right inguinal herniorrhaphy Small left adrenal adenoma
[2023-02-20 03:27] VITALS: BP 196/101; PULSE 88; RESP 18; TEMP 36.3; O2SAT 99
[2023-02-20 03:39] VITALS: BP 168/102; PULSE 85; RESP 14; TEMP 36.6; O2SAT 96
[2023-02-20 03:45] LABS: Basophils Absolute Auto 0.1 K/mm3 (0.0-0.1); Basophils Percent Auto 0.7 % (0.2-1.2); Eosinophils Absolute Auto 0.2 K/mm3 (0-0.3); Eosinophils Percent Auto 1.9 % (0-4.4); Hematocrit 40.6 % (42.0-52.0); Hemoglobin 12.8 g/dL (14.0-18.0); Immature Granulocyte Absolute 0.05 K/mm3 (0.00-0.031); Immature Granulocyte Percent A 0.6 % (0-0.5); Lymphocytes Absolute Auto 1.89 K/mm3 (0.9-3.2); Lymphocytes Percent Auto 20.9 % (18.3-44.2); Mean Corpuscular HGB Conc 31.5 g/dl (32-36); Mean Corpuscular Hemoglobin 26.6 pg (26-34); Mean Corpuscular Volume 84.4 fl (80-100); Mean Platelet Volume 9.4 fl (7.4-10.4); Monocytes Absolute Auto 0.8 K/mm3 (0.1-0.6); Monocytes Percent Auto 9.1 % (2.6-8.5); Neutrophils Absolute Auto 6.1 K/mm3 (1.3-6.7); Neutrophils Percent Auto 66.8 % (45.5-73.1); Platelet Count Result 216 k/mm3 (150-375); Red Blood Count 4.81 M/mm3 (4.6-6.20); White Blood Count 9.1 K/mm3 (4.5-10.0)
[2023-02-20] MEDS: ONDANSETRON INJ 4 MG/2 ML VIAL IV PUSH (03:54)
[2023-02-20] MEDS: HYDROmorphone HCL INJ (*CRX) 1 MG/ML SYR 0.5 MG IV PUSH ×2 (03:54→06:12)
[2023-02-20 03:57] LABS: Alanine Aminotransferase 29 U/L (6-50); Albumin Level 4.4 g/dL (3.5-5.1); Alkaline Phosphatase 51 U/L (38-126); Anion Gap 5 mmol/L (8-16); Aspartate Amino Transferase 28 U/L (17-59); Bilirubin,Total 0.4 mg/dL (0.2-1.3); Blood Urea Nitrogen 20 mg/dL (9-20); Calcium 9.6 mg/dL (8.4-10.2); Carbon Dioxide 32 mmol/L (22-30); Chloride 100 mmol/L (98-107); Estimated CRCL calculation 85 ml/min; Estimated Glomerular Filt Rate > 60; Glucose 170 mg/dL (65-110); Potassium 4.5 mmol/L (3.4-5.0); Sodium 137 mmol/L (137-145)
--- NOTE | 2023-02-20 04:08 | ED.ABDPAIN ---
HPI - Abdominal Pain General Chief Complaint: Abdominal Pain Stated Complaint: right side pain, hx of kidney stones Time Seen by Provider: 02/20/23 03:33 History of Present Illness HPI narrative: 62-year-old male presented the emergency department for evaluation of right flank pain. Patient reports that symptoms started yesterday afternoon. Patient reports that he is having difficulty getting comfortable. Patient did not take any medication for pain control. Patient does have prior history of kidney stones, patient states this does feel like a prior kidney stone. Patient does report some associated nausea. EMR shows that patient did see the Dr. Ospina and February 2020 for cystoscopy and uteroscopy Related Data Home Medications Medication Instructions Recorded Confirmed calcium acetate 600 mg PO DAILY 11/03/20 02/15/23 vitamin B complex (B 1 tablet PO DAILY 11/03/20 02/15/23 Complex-Vitamin B12 tablet) prednisone 2.5 mg tablet 2.5 mg PO .qod 12/24/22 02/15/23 gabapentin 300 mg capsule 600 mg PO TID 01/10/23 02/15/23 Allergies Allergy/AdvReac Type Severity Reaction Status Date / Time neomycin Allergy Intermediate Rash Verified 02/20/23 03:30 Review of Systems Review of Systems: All systems reviewed & are unremarkable except as noted in HPI and below PMFSH Past Medical History Medical History Arthritis Diabetes High cholesterol Hyperlipidemia Nephrolithiasis Rheumatoid arthritis Right ureteral calculus Seronegative rheumatoid arthritis of multiple sites Sleep apnea Surgical History Surgical History H/O inguinal hernia repair History of extraction of renal calculus 2019 History of lumbar surgery disc, 1994 History of rotator cuff surgery 2011 History of shoulder surgery 2011- left Hx of shoulder surgery 08/2021 Family History Family History Father , Age 91 No problems noted. Mother , Age 76 Diabetes mellitus Other Colon polyp Social History Social History Smoking packs per day: 1 Smoking cigarettes per day: 20.0 Years smoked: 20 Smoking pack-years: 20.00 Smoking status: Former smoker Tobacco type: cigarettes Second hand tobacco smoke exposure: No Smoking end date: 08/27/12 Alcohol intake: current Substance use: never Substance use type: does not use Last use: 2010 Lack of Transportation: No Lack of Food: Never True Current Housing: I Have Housing Concerned About Future Housing: No Difficulty Paying Gas/Electric Bills: No Difficulty Paying for Meds: No Currently Unemployed: No Education: Decline to Answer Difficulty w/ Childcare or Family Care: Decline to Answer Living arrangements: with family Occupation/Education: occupation Additional occupation/education comments: [employer] Gender identity (if verbalized by the patient): Male Sexual Orientation (if Verbalized by the Patient): Straight or Heterosexual Spiritual care concerns: No Agree to blood products: Yes Exam Narrative: APPEARANCE: Well appearing, no pain, no distress, well-nourished. HEAD: normocephalic, atraumatic. EYES: PERRLA/EOMI, conjunctivae clear. NOSE: Normal no drainage NECK: Supple. No adenopathy, no masses. RESPIRATORY: Airway patent, respirations nonlabored. Clear to auscultation bilaterally, no rales, rhonchi, wheezing. CARDIOVASCULAR: Regular rate and rhythm without murmurs rubs or gallops. ABDOMINAL: Soft, nontender, nondistended, normal bowel sounds MUSCULOSKELETAL: Moves all extremities. Strength/ROM intact, No edema, No calf tenderness. NEURO: Alert. Cranial nerves II through XII intact. Grossly intact SKIN: Warm, dry. Normal Color Course Course Emergency Course: 62-year-old
[2023-02-20 05:28] VITALS: BP 160/69; PULSE 81; RESP 16; O2SAT 99
[2023-02-20 05:46] LABS: Appearance Urine Turbid (Clear); Bacteria Urine None Seen /hpf; Bilirubin Urine Negative (Negative); Blood Urine 2+ (Negative); Color Urine Yellow (Yellow); Glucose Urine UA Negative (Negative); Ketones Urine Negative (Negative); Leukocyte Esterase Ur Negative LEU/UL (Negative); Nitrate Urine Negative (Negative); Non Pathogenic Casts 0-2; Protein Urine 1+ mg/dL (Negative); RBC Urine >100 /hpf (0-2); Specific Grav Ur 1.021 (1.001-1.035); Squamous Epithelial Cell Urine None seen /hpf (Few); Urobilinogen Urine 0.2 mg/dL (<2.0); WBC Urine 0-5 /hpf
[2023-02-20 05:59] LABS: Add Urine Microscopic? YES
--- NOTE | 2023-02-20 06:07 | PC.NURSE ---
Patient stated that his pain was going back up and currently at a 11/05. Notified Dr. Marie who advised to repeat 0.5mg Dilaudid IVP.
[2023-02-20 06:20] VITALS: BP 142/99; PULSE 81; RESP 15; O2SAT 93
[2023-02-20 07:18] VITALS: BP 157/68; PULSE 78; RESP 16; O2SAT 99
== END 2023-02-20 07:23 | disposition home or self-care (01) ==
PROVIDERS: Emergency Provider Emergency Medicine; PCP Family Medicine Adolescent Medicine
DX: R10.9 Unspecified abdominal pain (principal); R31.9 Hematuria, unspecified; N20.1 Calculus of ureter; E11.9 Type 2 diabetes mellitus without complications; E78.5 Hyperlipidemia, unspecified; E78.00 Pure hypercholesterolemia, unspecified; Z87.891 Personal history of nicotine dependence
CPT/HCPCS: 36415; 74176; 80053; 81001; 85025; 96374; 96375; 96376; 99284; J1170; J2405

== ENCOUNTER 2023-02-24 15:28 | Outpatient (CLI) | payer BC, SELFPAY | END 2023-02-24 15:29 | disposition home or self-care (01) | LOC: ANHLAB 15:35 | PROVIDERS: PCP Family Medicine Adolescent Medicine | DX: N20.1 Calculus of ureter (principal) | CPT/HCPCS: 87086 ==

== ENCOUNTER 2023-02-28 13:16 | Outpatient (CLI) | payer BC, SELFPAY ==
--- NOTE | 2023-02-28 13:22 | ECG_ITS ---
Measurements Intervals [place] Rate: 116 P: -15 MT: 148 QRS: 14 QRSD: 106 T: 40 QT: 302 QTc: 421 Interpretive Statements SINUS TACHYCARDIA ATRIAL PREMATURE COMPLEX CANNOT RULE OUT SEPTAL INFARCT, AGE INDETERMINATE ABNORMAL ECG COMPARED TO ECG 01/07/2021 08:00:07 SINUS TACHYCARDIA NOW PRESENT Electronically Signed On 02-28-2023 13:59:11 CDT by Riky Asif D.O.
== END 2023-02-28 13:17 | disposition home or self-care (01) ==
PROVIDERS: PCP Family Medicine Adolescent Medicine; Visit Provider Urology
DX: E11.9 Type 2 diabetes mellitus without complications (principal); Z01.818 Encounter for other preprocedural examination; R94.31 Abnormal electrocardiogram [ECG] [EKG]
CPT/HCPCS: 93005

== ENCOUNTER 2023-03-04 01:30 | Day surgery (SDC) | payer BC, SELFPAY ==
[2023-02-25 09:22] VITALS: BMI 32.5
--- NOTE | 2023-02-25 09:35 | PC.NURSE ---
Report to the Outpatient Waiting Room, entrance under the green pavilion located off [facility], at time 12:00 on date 03/04/23. Planned Procedure Time: 2:00. Time changes happen often and if your time is changed the preop area will call you the afternoon before. - You and your visitor will be asked to self-screen and do not enter if you have any COVID symptoms. - A mask is optional within the hospital at this time. Patients may have clear liquids (water, carbonated beverages, clear teas, apple juice) until 3 hours prior to surgery (11:00) with a maximum of 20 ounces. - No food from midnight until time of surgery Take the following medications with a SIP of water the morning of surgery: GABAPENTIN, ACETAMINOPHEN (IF NEEDED) DO NOT STOP ANY OF YOUR OTHER PRESCRIPTION MEDICATIONS PRIOR TO SURGERY ?EXCEPT THE FOLLOWING Medications to discontinue per physician: VITAMINS/SUPPLEMENTS Date to take last dose: 02/28/23 Please no make-up, nail bulgarian, hairspray, perfume, deodorant, or body powder the day of surgery. No jewelry (including any body piercings) or valuables the day of surgery, leave them at home. Please take a shower or bath the night before, or the morning of, surgery with an antibacterial soap. Wear comfortable, loose fitting clothing. - Jewelry must be removed prior to entering the operating room. Rings and piercings that are not removed may be cut off. - The hospital will not accept responsibility for valuables. - Please leave all valuables, including medications, at home the day of surgery. If you are going home after surgery, a licensed explosives truck driver must drive you home. - NO public transportation without another adult if you receive anesthesia. - We recommend that an adult stay with you for 24 hours following discharge. - We also recommend that you do not drive, make important decision, drink alcoholic beverages, or take any drugs that were not prescribed by your health care provider for at least 24 hours after your discharge time. Follow any additional instructions given to you from your surgeon. If you or anyone in your household have experienced Covid symptoms in the past week, please notify your surgeon or the nurse liaison at the phone number below for possible testing. Telephone instructions given to DERRICK Willis and asked if any additional questions and then verbalized understanding. Patient advised to call surgeon office or pre surgery nurse liaison [phone] if any additional questions.
--- NOTE | ~2023-03-04 | XR_ITS ---
EXAMINATION: XR retrograde pyelogram RT DATE: 03/04/2023 14:25 CDT INDICATION: RIGHT SIDE STONE . TECHNIQUE: 5 fluoroscopic images of the abdomen and pelvis were obtained during right retrograde pyel ography performed by the surgeon. I was not present in the operating room. Fluoroscopy exposure time was 16.9 seconds. DAP [id number] mGym2. COMPARISON: CT abdomen pelvis 02/20/2023 FINDINGS: Wire access to the right collecting system which appears mildly dilated. Post stent deployment, the p roximal coil projects over the right renal pelvis. Imaging of the distal coil not provided. IMPRESSION: Fluoroscopic documentation of right retrograde pyelography. Please refer to the operative note for co mplete procedural details . Reviewed, dictated and finalized at location K. IMPRESSION: Fluoroscopic documentation of right retrograde pyelography. Please refer to the operative note for complete procedural details .
--- NOTE | 2023-03-04 09:25 | WPDANESEPPF ---
Anes - Initial Pre Proc Eval Procedure: Operation Date: 03/04/23 14:30 Proposed Procedures p Cystoscopy, Right Ureteroscopy, Right Stone Extraction, Possible Holmium Laser Lithotripsy, Possible Right Retrograde Pyelogram, Right Stent Placement - Bryan Ospina MD Date/Time: 03/04/23 09:25 Surgeon: Bryan Ospina MD Pre Op Diagnosis: Rt Ureteral Stone Patient Data Age: 62 Gender: M Height: 1.83 m Weight: 108.9 kg Allergies Allergy/AdvReac Type Severity Reaction Status Date / Time neomycin Allergy Intermediate Rash Verified 03/04/23 12:48 Home Medications Medication Instructions Recorded Confirmed Type calcium acetate 600 mg PO DAILY 11/03/20 02/25/23 History vitamin B complex (B 1 tablet PO DAILY 11/03/20 02/25/23 History Complex-Vitamin B12 tablet) blood sugar diagnostic (OneTouch #100 ea 02/16/22 02/15/23 Rx Ultra Test strips) sildenafil (pulm.hypertension) 20 See Rx Instructions PO DAILY #30 03/08/22 02/25/23 Rx mg tablet tabs simvastatin 20 mg tablet 20 mg PO DAILY #90 tabs 07/05/22 02/25/23 Rx metformin 500 mg tablet,extended 2,000 mg PO DAILY #360 tabs 12/21/22 02/25/23 Rx release 24 hr hydroxychloroquine 200 mg tablet 400 mg PO DAILY #180 tabs 12/23/22 02/25/23 Rx (Plaquenil) leflunomide 10 mg tablet 10 mg PO DAILY #90 tabs 12/23/22 02/25/23 Rx gabapentin 300 mg capsule 600 mg PO TID 01/10/23 02/25/23 History glimepiride 1 mg tablet 1 mg PO DAILY #90 tabs 01/17/23 02/25/23 Rx sitagliptin phosphate 100 mg 100 mg PO DAILY #90 tabs 02/14/23 02/25/23 Rx tablet (Januvia) hydrocodone 5 mg-acetaminophen 325 1 tablet PO Q8H PRN pain #14 tabs 02/20/23 02/25/23 Rx mg tablet tamsulosin 0.4 mg capsule (Flomax) 0.4 mg PO DAILY #14 caps 02/20/23 02/25/23 Rx acetaminophen 325 mg tablet 650 mg PO PRN 02/25/23 02/25/23 History baricitinib 2 mg tablet (Olumiant) 2 mg PO DAILY 02/25/23 02/25/23 History Patient hx anesthesia problems: none Family hx anesthesia problems: none Results Review: All pre-operative results and documents have been reviewed as part of the pre-operative evaluation. [facility] Past Medical History Medical History (Updated 03/03/23 @ 12:36 by Michael Torres MD) Arthritis Diabetes High cholesterol Hyperlipidemia Nephrolithiasis Rheumatoid arthritis Right ureteral calculus Seronegative rheumatoid arthritis of multiple sites Sleep apnea Surgical History Surgical History (Updated 03/03/23 @ 05:34 by Michael Torres MD) History of extraction of renal calculus 2019 History of lumbar surgery disc, 1994 History of right inguinal hernia repair (2013) History of rotator cuff surgery 2011 History of shoulder surgery 2011- left Hx of shoulder surgery 08/2021 Family History Family History Father , Age 91 No problems noted. Mother , Age 76 Diabetes mellitus Other Colon polyp Social History Social History Smoking packs per day: 1 Smoking cigarettes per day: 20.0 Years smoked: 25 Smoking pack-years: 25.00 Smoking status: Former smoker Tobacco type: cigarettes Second hand tobacco smoke exposure: No Smoking end date: 08/29/12 Alcohol intake: current Alcohol use details: OCCASIONAL BEER, NOT IN LAST FEW MONTHS Substance use: never Substance use type: does not use Last use: 2010 Lack of Transportation: No Lack of Food: Never True Current Housing: I Have Housing Concerned About Future Housing: No Difficulty Paying Gas/Electric Bills: No Difficulty Paying for Meds: No Currently Unemployed: No Education: Decline to Answer Difficulty w/ Childcare or Family Care: Decline to Answer Living arrangements: with family Occupation/Education: occupation Additional occupation/education comments: [employer] Gender identity (if verbalized by
[2023-03-04 12:38] VITALS: BP 117/66; PULSE 100; RESP 16; TEMP 37; O2SAT 97
[2023-03-04] MEDS: LACTATED RINGERS 1,000 ML 30 ML IV CONT (12:55)
[2023-03-04 13:02] LABS: Glucose Point of Care 98 mg/dl (65-105)
[2023-03-04 13:05] VITALS: BMI 31.0
--- NOTE | 2023-03-04 14:05 | WPDHPUPDATE1 ---
History and Physical Update Update Date/Time: 03/04/23 14:05 History and Physical has been reviewed, including an updated exam of the patient. There are NO changes in the patient's condition. Risks, benefits, and alternatives have been discussed and questions answered. Patient agrees to proceed with procedure. Proceed with cysto, right retrograde, right ureteroscopy with stone extraction, laser, stent placement
[2023-03-04] MEDS: ceFAZolin 2 GM/D5W 50 ML 2 GM/50 ML BAG IVPB (14:27)
--- NOTE | 2023-03-04 14:44 | W.PM.PROC2 ---
Procedure Note - Detailed Date of Procedure 03/04/23 Pre-op Diagnosis Rt Ureteral Stone Post-op Diagnosis Same Procedure Performed Cystoscopy, right retrograde pyelogram, right ureteroscopy with holmium laser of stone, stone extraction, right ureteral stent placement 4.8 Tristanian contour Surgeon Bryan Ospina MD Anesthesia General Description of Procedure Patient is taken to the operative suite correctly identified. Once anesthesia was obtained was placed in dorsal lithotomy position and prepped and draped usual sterile fashion. Twenty-two Tristanian scope inserted the bladder. Does have some lateral lobe hypertrophy. The bladder itself has no tumors. The right ureteral orifice was cannulated with a guidewire. 8/10 dilator was used to dilate the orifice. Rigid ureteral scope was then inserted. The stone was visualized in too large to retrieve 1 piece. Using a 200 micron fiber we lasered the stone into multiple small pieces. The largest were sent over for analysis. Reinspection revealed no significant stone burden in the ureter. Pyelogram was then performed to confirm placement of the stent. 4.8 Tristanian contour stent was then placed with the proximal end coiled in the renal pelvis and the distal in the bladder. Bladder was drained. 2% viscous lidocaine was inserted into the urethra patient is taken recovery stable condition. He will follow-up in a week's time for stent removal. This completes dictation on this patient. Please send a copy of this operative note to my office. Drains Yes Packing No Complications No immediate complications Condition Stable Disposition PACU
[2023-03-04 14:49] VITALS: BP 119/71; PULSE 81; RESP 12; TEMP 37.6; O2SAT 98
[2023-03-04 15:04] VITALS: BP 121/77; PULSE 86; RESP 20; O2SAT 98
[2023-03-04 15:16] LABS: Glucose Point of Care 95 mg/dl (65-105)
[2023-03-04 15:19] VITALS: BP 123/94; PULSE 95; RESP 16; O2SAT 99
[2023-03-04 15:22] VITALS: BP 150/92; PULSE 92; RESP 20
[2023-03-04 16:00] VITALS: BP 129/84; PULSE 86; RESP 20
== END 2023-03-04 16:03 | disposition home or self-care (01) ==
PROVIDERS: PCP Family Medicine Adolescent Medicine; Visit Provider Urology
PROC: (CPT 52352; principal; 2023-03-04 14:30)
DX: N20.1 Calculus of ureter (principal); E11.9 Type 2 diabetes mellitus without complications; E78.00 Pure hypercholesterolemia, unspecified; M06.09 Rheumatoid arthritis without rheumatoid factor, multiple sites; G47.30 Sleep apnea, unspecified; Z79.84 Long term (current) use of oral hypoglycemic drugs; Z79.891 Long term (current) use of opiate analgesic; Z87.891 Personal history of nicotine dependence; E66.9 Obesity, unspecified; Z68.31 Body mass index [BMI] 31.0-31.9, adult
CPT/HCPCS: 52356; 74420; 82365; 82948; 88300; 93005; C1758; C1769; C2617; J0690; J2250; J2405; J2704; J3010; J7120; Q9966

== ENCOUNTER → 2023-03-09 13:29 | Outpatient (CLI) | payer BC, SELFPAY ==
--- NOTE | ~2023-03-09 | XR_ITS ---
EXAMINATION: XR lumbar spine min 4V DATE: 03/09/2023 13:45 INDICATION: Lumbar stenosis TECHNIQUE: Anteroposterior and lateral in neutral, flexion and extension views of the lumbar spine, a nd cone-down lateral view of the lumbosacral junction were obtained. COMPARISON: MRI from today FINDINGS: A right internal ureteral stent is in expected position. There is severe loss of interverte bral disc space height at L4-5 and L5-S1. Vertebral body alignment is normal. No hypermobility is pre sent with flexion or extension. The vertebral body heights are maintained. There is no fracture. Ther e is severe facet joint osteoarthritis of the lower lumbar spine. Small degenerative osteophytes proj ect from the anterior endplates of multiple vertebral bodies. IMPRESSION: 1. Severe lower lumbar spondylosis without acute findings. Reviewed, dictated and finalized at location B.
--- NOTE | ~2023-03-09 | MR_ITS ---
EXAMINATION: MR lumbar spine wo/w con DATE: 03/09/2023 14:36 INDICATION: Lumbar stenosis. Low back pain. TECHNIQUE: Magnetic resonance imaging (MRI) of the lumbar spine was performed without and with 20 mL MultiHance intravenous contrast. COMPARISON: Lumbar spine radiographs 03/09/2023 FINDINGS: There is 4 degrees dextrocurvature of lumbar spine. There is mild chronic anterior wedging of T11 and T12 vertebral bodies. There is severely decreased disc height at L4-L5 and L5-S1 with endp late remodeling. The distal spinal cord signal intensity is normal. The conus medullaris is at the co nus medullaris is at L1. The following disc levels are specifically discussed: L1-L2: The disc does not extend beyond the endplate margin. There is mild bilateral facet joint osteo arthritis. There is no neural foraminal stenosis. There is no central canal stenosis. L2-L3: There is a left foraminal protrusion. There is severe right and moderate left facet joint oste oarthritis. There is mild left neural foraminal stenosis. There is no central canal stenosis. L3-L4: The disc is bulging. There is severe bilateral facet joint osteoarthritis. There is mild bilat eral neural foraminal stenosis. There is mild central canal stenosis. L4-L5: The disc is bulging with superimposed right subarticular zone extrusion with mass effect on ri ght L5 nerve root in right lateral recess. There is severe bilateral facet joint osteoarthritis. Ther e is moderate bilateral neural foraminal stenosis. There is mild central canal stenosis at the midlin e. There is severe stenosis of right lateral recess. L5-S1: This is bulging and has an annular fissure. The disc exerts mass effect on left S1 nerve root in left lateral recess. There is severe bilateral facet joint osteoarthritis. There is moderate bilat eral neural foraminal stenosis. There is mild central canal stenosis. There is moderate stenosis of l eft lateral recess. IMPRESSION: 1. Severe lower lumbar spondylosis. Reviewed, dictated and finalized at location E.
== END ==
PROVIDERS: PCP Family Medicine Adolescent Medicine; Visit Provider Neurological Surgery
DX: M48.061 Spinal stenosis, lumbar region without neurogenic claudication (principal); M47.896 Other spondylosis, lumbar region
CPT/HCPCS: 72110; 72158; A9577

== ENCOUNTER → 2023-03-23 04:31 | Day surgery (SDC) | payer BC, SELFPAY ==
--- NOTE | 2023-03-21 09:31 | PC.NURSE ---
Report to the Outpatient Waiting Room, entrance under the green pavilion located off [facility], at time 1000 on date 03/23/23. Planned Procedure Time: 1200. Time changes happen often and if your time is changed the preop area will call you the afternoon before. - You and your visitor will be asked to self-screen and do not enter if you have any COVID symptoms. - A mask is optional within the hospital at this time. Patients may have clear liquids (water, carbonated beverages, clear teas, apple juice) until 3 hours prior to surgery with a maximum of 20 ounces. - No food from midnight until time of surgery Take the following medications with a SIP of water the morning of surgery: GABAPENTIN DO NOT STOP ANY OF YOUR OTHER PRESCRIPTION MEDICATIONS PRIOR TO SURGERY ?EXCEPT THE FOLLOWING Medications to discontinue per physician: VITAMINS/SUPPLEMENTS Date to take last dose: NO MORE UNTIL AFTER SURGERY Please no make-up, nail swedish, hairspray, perfume, deodorant, or body powder the day of surgery. No jewelry (including any body piercings) or valuables the day of surgery, leave them at home. Please take a shower or bath the night before, or the morning of, surgery with an antibacterial soap. Wear comfortable, loose fitting clothing. - Jewelry must be removed prior to entering the operating room. Rings and piercings that are not removed may be cut off. - The hospital will not accept responsibility for valuables. - Please leave all valuables, including medications, at home the day of surgery. If you are going home after surgery, a licensed lifter driver must drive you home. - NO public transportation without another adult if you receive anesthesia. - We recommend that an adult stay with you for 24 hours following discharge. - We also recommend that you do not drive, make important decision, drink alcoholic beverages, or take any drugs that were not prescribed by your health care provider for at least 24 hours after your discharge time. Follow any additional instructions given to you from your surgeon. If you or anyone in your household have experienced Covid symptoms in the past week, please notify your surgeon or the nurse liaison at the phone number below for possible testing. Telephone instructions given to PT - JIMENEZ EDWARDS and asked if any additional questions and then verbalized understanding. Patient advised to call surgeon office or pre surgery nurse liaison [phone] if any additional questions.
[2023-03-21 09:35] VITALS: BMI 31.1
--- NOTE | 2023-03-22 10:37 | WPDANESEPPF ---
Anes - Initial Pre Proc Eval Procedure: Operation Date: 03/23/23 12:00 Proposed Procedures p Laparoscopic Left Inguinal Hernia Repair with Mesh, Davinci Assisted - Stefan Beach DO Date/Time: 03/22/23 10:37 Surgeon: Stefan Beach DO Pre Op Diagnosis: left inguinal hernia Patient Data Age: 62 Gender: M Height: 1.83 m Weight: 104 kg Allergies Allergy/AdvReac Type Severity Reaction Status Date / Time neomycin Allergy Intermediate Rash Verified 03/23/23 10:33 Home Medications Medication Instructions Recorded Confirmed Type calcium acetate 600 mg PO DAILY 11/03/20 03/23/23 History vitamin B complex (B 1 tablet PO DAILY 11/03/20 03/23/23 History Complex-Vitamin B12 tablet) blood sugar diagnostic (OneTouch #100 ea 02/16/22 03/17/23 Rx Ultra Test strips) sildenafil (pulm.hypertension) 20 See Rx Instructions PO DAILY #30 03/08/22 03/21/23 Rx mg tablet tabs simvastatin 20 mg tablet 20 mg PO DAILY #90 tabs 07/05/22 03/23/23 Rx hydroxychloroquine 200 mg tablet 400 mg PO DAILY #180 tabs 12/23/22 03/23/23 Rx (Plaquenil) leflunomide 10 mg tablet 10 mg PO DAILY #90 tabs 12/23/22 03/23/23 Rx gabapentin 300 mg capsule 600 mg PO TID 01/10/23 03/23/23 History glimepiride 1 mg tablet 1 mg PO DAILY #90 tabs 01/17/23 03/23/23 Rx sitagliptin phosphate 100 mg 100 mg PO DAILY #90 tabs 02/14/23 03/23/23 Rx tablet (Januvia) metformin 500 mg tablet,extended 2,000 mg PO DAILY #360 tabs 03/20/23 03/23/23 Rx release 24 hr baricitinib 2 mg tablet (Olumiant) 2 mg PO DAILY #30 tabs 03/22/23 Rx oxycodone 5 mg tablet 5 mg PO Q4H PRN pain #10 tabs 03/23/23 Rx Patient hx anesthesia problems: none Family hx anesthesia problems: none Results Review: All pre-operative results and documents have been reviewed as part of the pre-operative evaluation. [facility] Past Medical History Medical History (Updated 03/17/23 @ 13:42 by Kellen Jerez) Arthritis Diabetes High cholesterol Hyperlipidemia Nephrolithiasis Rheumatoid arthritis Right ureteral calculus Seronegative rheumatoid arthritis of multiple sites Sleep apnea Surgical History Surgical History (Updated 03/23/23 @ 14:34 by Michael Torres MD) History of extraction of renal calculus 2019 History of left inguinal hernia repair (02/2023) History of lumbar surgery disc, 1995 History of right inguinal hernia repair (2013) History of rotator cuff surgery 2011 History of shoulder surgery 2011- left Hx of shoulder surgery 08/2021 Family History Family History Father , Age 91 No problems noted. Mother , Age 76 Diabetes mellitus Other Colon polyp Social History Social History Smoking packs per day: 1 Smoking cigarettes per day: 20.0 Years smoked: 25 Smoking pack-years: 25.00 Smoking status: Former smoker Tobacco type: cigarettes Second hand tobacco smoke exposure: No Smoking end date: 08/29/12 Alcohol intake: current Alcohol use details: OCCASIONAL BEER Substance use: never Substance use type: does not use Last use: 2010 Lack of Transportation: No Lack of Food: Never True Current Housing: I Have Housing Concerned About Future Housing: No Difficulty Paying Gas/Electric Bills: No Difficulty Paying for Meds: No Currently Unemployed: No Education: Decline to Answer Difficulty w/ Childcare or Family Care: Decline to Answer Living arrangements: with family Occupation/Education: occupation Additional occupation/education comments: [employer] Gender identity (if verbalized by the patient): Male Sexual Orientation (if Verbalized by the Patient): Straight or Heterosexual Spiritual care concerns: No Agree to blood products: Yes Anes - Eval Final PreProcedure Day of Procedure 03/22/23 10:37 Patient weight: obese
[2023-03-23] VITALS (9 sets, daily range): BP systolic 142–181; BP diastolic 79–102; PULSE 77–87; RESP 14–20; TEMP 36.2–36.8; O2SAT 98–100
[2023-03-23] MEDS: ACETAMINOPHEN 500 MG TABLET 1000 MG PO (10:45)
[2023-03-23] MEDS: LACTATED RINGERS 1,000 ML 30 ML IV CONT ×3 (11:40→15:40)
[2023-03-23] MEDS: KETOROLAC 15 MG/ML VIAL (*BKC) IV PUSH (11:40)
[2023-03-23 11:49] LABS: Glucose Point of Care 89 mg/dl (65-105)
--- NOTE | 2023-03-23 12:11 | WPDHPUPDATE1 ---
History and Physical Update Update Date/Time: 03/23/23 12:11 History and Physical has been reviewed, including an updated exam of the patient. There are NO changes in the patient's condition. Risks, benefits, and alternatives have been discussed and questions answered. Patient agrees to proceed with procedure.
[2023-03-23] MEDS: ceFAZolin 2 GM/D5W 50 ML 2 GM/50 ML BAG IVPB (12:42)
[2023-03-23] MEDS: BUPIVACAINE/EPINEPHRINE 0.25% 10 ML VIAL 30 ML INFILTRATE (13:23)
--- NOTE | 2023-03-23 14:25 | W.PM.PROC2 ---
Procedure Note - Detailed Date of Procedure 03/23/23 Pre-op Diagnosis left inguinal hernia Post-op Diagnosis Other (Incarcerated indirect left inguinal hernia) Procedure Performed Laparoscopic incarcerated left inguinal hernia repair with mesh, da Margaret assisted Surgeon Stefan Beach, DO Anesthesia General and Local (0.5% bupivacaine with epinephrine) Indications This is a 62-year-old man who presented with left groin swelling and discomfort over the past couple years. He 1st noticed a small bulge in this area then it had become larger over the past year. He was sent for a CT of his abdomen and pelvis and this showed evidence of a large left inguinal hernia containing a loop of descending colon. The patient's bowels were still moving normally but he was found to have a large left hernia that was somewhat difficult to completely reduce this. It was soft and minimally tender. Discussions were made with the patient about treatment options and decision was made to proceed with robotic assisted laparoscopic left inguinal hernia repair with mesh. Findings Laparoscopic left inguinal hernia repair was performed. The left inguinal hernia was identified and appeared to be incarcerated with a loop of descending colon. The colon was somewhat difficult to reduce initially but with careful traction and external pressure I was able to completely reduce the colon. There was a large indirect left inguinal hernia. A robotic transabdominal preperitoneal approach was then utilized for repair. Once a wide enough preperitoneal pocket was created and the hernia sac was reduced, I then placed an extra-large left Bard 3DMax mid mesh overlying the entire left myopectineal orifice. Description of Procedure Procedure as well as risks, benefits, and alternatives were discussed with the patient. Written consent was obtained and placed in chart prior to procedure. Patient was brought back to surgical suite. He was placed supine on operating table. Time-out was done to confirm patient and procedure. He was then intubated by Anesthesia Department. His abdomen was prepped and draped in sterile fashion using chlorhexidine prep. 0.5% bupivacaine with epinephrine was infiltrated at each location for incision. An 8 mm incision was made in the left lateral abdomen, and a 5 mm Optiview trocar was advanced through the abdominal layers under direct visualization. Once inside the abdominal cavity, carbon dioxide insufflation was used to create a pneumoperitoneum. A camera was inserted and the abdominal cavity was inspected. The patient was placed in slight Trendelenburg position. An 8 millimeter incision was made on the right lateral abdomen and an 8 millimeter trocar was inserted under direct visualization. Another 8 millimeter incision was made just superior to the umbilicus and an 8 millimeter trocar was inserted under direct visualization. The 5 mm port was then removed and this was replaced with another 8 mm robotic port. The robotic arms were brought up to the patient's bedside and secured to the ports. The camera and instruments were inserted. I then moved over to the robotic console and took control of the camera and instruments. After careful inspection of the abdominal cavity, I carefully reduced the incarcerated descending colon, and then I began scoring the peritoneum along the left lower quadrant using scissors with electrocautery. The preperitoneal plane was entered and this was carefully dissected caudally along the inferior epigastric vessels. Careful dissection with scissors with electrocautery and blunt dissection was used to continue this dissection. I dissected far enough laterally to allow for mesh placement, and also dissected medially to identify the pubic arch and Isacc's ligament. The hernia sac was identified and carefully dissected posteriorly. The cord contents were also identified and the peritoneum was carefully dissected far enough posteriorly to allow
[2023-03-23 14:49] LABS: Glucose Point of Care 113 mg/dl (65-105)
[2023-03-23] MEDS: hydrALAZINE HCL 20 MG/ML VIAL 5 MG IV PUSH (15:04)
--- NOTE | 2023-03-23 15:05 | SUR.PHASEI ---
Demi Arias LENDING ADVISOR notified of patient's continued elevated SBP and DBP. Orders received. See MAR for documentation.
[2023-03-23] MEDS: oxyCODONE HCL (*CRX) 5 MG TAB IR PO (15:39)
== END | disposition home or self-care (01) ==
PROVIDERS: PCP Family Medicine Adolescent Medicine; Visit Provider Surgery
PROC: 8E0Y4CZ Robotic Assisted Procedure of Lower Extremity, Percutaneous Endoscopic Approach (ICD-10-PCS; CPT 49650; principal; 2023-03-23 12:00)
DX: K40.30 Unilateral inguinal hernia, with obstruction, without gangrene, not specified as recurrent (principal); E11.9 Type 2 diabetes mellitus without complications; E78.00 Pure hypercholesterolemia, unspecified; M06.09 Rheumatoid arthritis without rheumatoid factor, multiple sites; G47.30 Sleep apnea, unspecified; Z79.84 Long term (current) use of oral hypoglycemic drugs; Z87.891 Personal history of nicotine dependence; E66.9 Obesity, unspecified; Z68.31 Body mass index [BMI] 31.0-31.9, adult
CPT/HCPCS: 49650; S2900; 36415; 82948; 86850; 86900; 86901; A9270; C1781; J0360; J0690; J1100; J1885; J2250; J2405; J2704; J3010; J7030; J7120

== ENCOUNTER 2023-04-12 09:55 | Outpatient (CLI) | payer BC, SELFPAY ==
--- NOTE | ~2023-04-12 | XR_ITS ---
EXAMINATION: XR abdomen/kub 1V INDICATION: Right ureteral stone TECHNIQUE: Supine views of the abdomen were obtained on 2 radiographs. COMPARISON: CT, 02/20/2023 FINDINGS: The previously described right ureterovesicular junction stone is not definitely identified . There are phleboliths of the pelvis. No urolithiasis is seen. A moderate volume of colonic stool is present. Surgical clips projecting over the right hip likely reflect inguinal hernia repair. There i s moderate lumbar spondylosis. IMPRESSION: 1. No urolithiasis identified. Reviewed, dictated and finalized at location L.
== END 2023-04-12 09:56 | disposition home or self-care (01) ==
LOC: ANHIMG 09:58
PROVIDERS: PCP Family Medicine Adolescent Medicine; Visit Provider Neurological Surgery
DX: N20.1 Calculus of ureter (principal)
CPT/HCPCS: 74018

== ENCOUNTER 2023-04-15 14:33 | Outpatient (CLI) | payer BC, SELFPAY ==
[2023-04-15 14:51] LABS: Hematocrit 33.9 % (42.0-52.0); Hemoglobin 10.2 g/dL (14.0-18.0); Mean Corpuscular HGB Conc 30.1 g/dl (32-36); Mean Corpuscular Hemoglobin 25.9 pg (26-34); Mean Platelet Volume 9.2 fl (7.4-10.4); Platelet Count Result 345 k/mm3 (150-375); Red Blood Count 3.94 M/mm3 (4.6-6.20); Red Cell Distribution Width 15.5 % (11.5-14.5); White Blood Count 7.3 K/mm3 (4.5-10.0)
[2023-04-15 15:01] LABS: Alanine Aminotransferase 26 U/L (6-50); Albumin Level 3.9 g/dL (3.5-5.1); Alkaline Phosphatase 54 U/L (38-126); Anion Gap 2 mmol/L (8-16); Aspartate Amino Transferase 28 U/L (17-59); Bilirubin,Total 0.3 mg/dL (0.2-1.3); Blood Urea Nitrogen 16 mg/dL (9-20); CRP 0.7 mg/dL (<1.0); Calcium 8.8 mg/dL (8.4-10.2); Carbon Dioxide 31 mmol/L (22-30); Chloride 104 mmol/L (98-107); Estimated Glomerular Filt Rate > 60; Glucose 158 mg/dL (65-110); Potassium 3.7 mmol/L (3.4-5.0); Sodium 137 mmol/L (137-145)
[2023-04-15 15:40] LABS: Appearance Urine Clear (Clear); Bacteria Urine None Seen /hpf; Bilirubin Urine Negative (Negative); Blood Urine Negative (Negative); Color Urine Yellow (Yellow); Glucose Urine UA Negative (Negative); Ketones Urine Negative (Negative); Leukocyte Esterase Ur Negative LEU/UL (Negative); Nitrate Urine Negative (Negative); Non Pathogenic Casts 0-2; Protein Urine Trace mg/dL (Negative); RBC Urine 0-2 /hpf (0-2); Specific Grav Ur 1.022 (1.001-1.035); Squamous Epithelial Cell Urine None seen /hpf (Few); pH Urine 5.5 (5.0-9.0)
[2023-04-15 15:45] LABS: Add Urine Microscopic? YES
[2023-04-15 16:10] LABS: Erythrocyte Sedimentation Rate 78 mm/hr (0-20)
== END 2023-04-15 14:34 | disposition home or self-care (01) ==
PROVIDERS: PCP Family Medicine Adolescent Medicine; Visit Provider Internal Medicine
DX: M06.09 Rheumatoid arthritis without rheumatoid factor, multiple sites (principal); M19.90 Unspecified osteoarthritis, unspecified site
CPT/HCPCS: 36415; 80053; 81001; 85027; 85652; 86140; 87086

== ENCOUNTER → 2023-04-21 15:05 | Outpatient (CLI) | payer BC, SELFPAY ==
--- NOTE | ~2023-04-21 | MR_ITS ---
EXAMINATION: MR knee RT wo con DATE: 04/21/2023 15:34 INDICATION: Right knee joint effusion TECHNIQUE: Magnetic resonance imaging (MRI) of the right knee was performed without intravenous contr ast. Sequences included coronal PD-weighted FSE, coronal PD-weighted FS FSE, sagittal T2-weighted FS E, sagittal PD-weighted FS FSE and axial PD weighted fat saturated FSE. COMPARISON: Right knee radiographs dated 08/31/2022 FINDINGS: Medial compartment: Medial meniscus is normal. There is shallow chondral fissuring without degenerative subchondral dykes es along the lateral half of the anterior weightbearing medial femoral condyle. Lateral compartment: Complex lateral meniscal tear with radial component involving the inner two thirds of the meniscal sonu dy and with longitudinal horizontal component extending into the anterior and posterior horns. Deep c hondral ulceration with underlying mild edema-like and cystlike change at the posterior aspect of the lateral tibial plateau. Less severe partial thickness cartilage loss with fissuring and minimal unde rlying edema-like signal change at the central aspect of the lateral tibial plateau. Partial-thicknes s chondral fissuring which appears to involve 50% the cartilage thickness at the anterior weightbeari ng lateral femoral condyle. Patellofemoral compartment: Deep chondral ulceration with subtle scattered underlying cortical irregularity and a few foci of mil d subarticular edema-like signal change at the medial and lateral patellar facets and intervening api yuniel ridge. Deep chondral ulceration with additional cortical irregularity and mild subarticular edema -like signal change at the cephalad aspect of the lateral trochlea. Ligaments and tendons: Anterior and posterior cruciate ligaments are normal. The medial collateral ligament and fibular tristin ateral ligament complex are normal. The extensor mechanism is normal. The visualized medial and later al hamstring tendons as well as the iliotibial band are normal. Fluid: Large right knee joint effusion with mild peripheral synovitis. 14 x 10 x 3 mm possible loose chondra l body positioned within the effusion at the anterior recess of the medial compartment. Small Alexander's cyst. Osseous/other: Bone alignment is normal. No fracture or pathologic marrow replacing process. IMPRESSION: 1. Complex lateral meniscal tear. 2. Mild tricompartmental osteoarthritis with regions of high-grade chondromalacia in the patellofemor al and lateral compartments and small region of moderate grade chondral malacia in the medial compart ment. 3. Large right knee joint effusion and small Alexander's cyst. Reviewed, dictated and finalized at location A. IMPRESSION: 1. Complex lateral meniscal tear. 2. Mild tricompartmental osteoarthritis with regions of high-grade chondromalac ia in the patellofemoral and lateral compartments and small region of moderate grade chondral malacia in the medial compartment. 3. Large right knee joint effusion and small Alexander's cyst.
== END ==
PROVIDERS: PCP Nurse Practitioner; Visit Provider Nurse Practitioner
DX: M25.461 Effusion, right knee (principal); M17.11 Unilateral primary osteoarthritis, right knee; S83.271D Complex tear of lateral meniscus, current injury, right knee, subsequent encounter; X58.XXXD Exposure to other specified factors, subsequent encounter
CPT/HCPCS: 73721

== ENCOUNTER 2023-05-09 11:00 | Outpatient (RCR) | payer BC, SELFPAY ==
--- NOTE | 2023-04-12 10:09 | PTOPEVAL1 ---
Assessment and note entered by Pieter De Souza, PT Evaluation Information Assessment Status Evaluation Diagnosis Lumbar Stenosis Onset Chronic Subjective Information Patient reports having continued low back and R knee pain, patient gets his R knee drained and has had injections in the back, but reports they do not help. Patient has a chadian ball exercise routine he received from a prior physical therapy clinic. Patient reports pain going down to the knee. Patient wants to be thrifty with his visits as he wants post/op visits after a procedure he thinks he will be getting later this year and he reports he only gets 20 physical therapy visits a year. Reported Pain Level Pain Score 5: Self Report Additional Pain Score Comments main pain is from bending over to lift anything weight does not appear to matter Assessment PT Clinical Summary Juan is a 62 year old male coming into the clinic with a diagnosis of lumbar stenosis. The patient has tight hamstrings and calfs and lower back muscles restricting extension and rotation. Weakness in the core and hips especially extension and abduction. Patient should benefit from skilled physical therapy to working on strengthening and stretching of the low back and lower extremities along with modalities and manual therapy as needed for pain control. Plan of Care Interventions Electrical Stimulation,Gait Training,Hot Pack/Cold Pack,Manual Therapy,Mechanical Traction,Neuro Re- education,Patient/Caregiver Educati,Therapeutic Activities,Therapeutic Exercise,Ultrasound Other Interventions cupping, taping, IASTM PT Services Indicated Yes Treatment Frequency and 1-2x/wk for 8 visits Duration These treatments will address the objective and functional deficits as defined above. The patient will be advanced safely and appropriately in order for the patient to progress towards his/her prior level of function. Additional exercises will be introduced and as well as a comprehensive home exercise program upon discharge, if needed, ?to ensure carryover of functional gains achieved in the clinic. This treatment plan has been reviewed and agreement upon by the patient.
--- NOTE | 2023-04-12 10:10 | OPREHPOC ---
Outpatient Therapy Plan of Care This is a Multidisciplinary Plan of Care that may contain components documented by all disciplines (PT, OT, and ST.) PT Problem 1 PT Problem #1 Knowledge Deficit PT Goal 1 Goal Independent with HEP Target Visit 8 PT Problem 2 PT Problem #2 Pain PT Goal 1 Goal centralize pain to the low back only Target Visit 8 PT Goal 2 Goal decrease pain to 2/10 at worst Target Visit 8 PT Problem 3 PT Problem #3 Impaired Strength PT Goal 1 Goal increase WES hip extension and abduction to 4+/5 Target Visit 8 PT Problem 4 PT Problem #4 Impaired Flexibility PT Goal 1 Goal improve WES hamstring length to 90/90 -20 or better Target Visit 8 PT Goal 2 Goal increase WES calf tightness to MILD tightness or better Target Visit 8
--- NOTE | 2023-04-22 10:08 | PCPTNOTE ---
Pt cancelled today due to work.
--- NOTE | 2023-05-09 13:31 | OPREHPOC ---
Outpatient Therapy Plan of Care This is a Multidisciplinary Plan of Care that may contain components documented by all disciplines (PT, OT, and ST.) PT Problem 1 PT Problem #1 Knowledge Deficit PT Goal 1 Goal Independent with HEP Target Visit 8 Progress Met PT Problem 2 PT Problem #2 Pain PT Goal 1 Goal centralize pain to the low back only Target Visit 8 Progress Met PT Goal 2 Goal decrease pain to 2/10 at worst Target Visit 8 Progress Met PT Problem 3 PT Problem #3 Impaired Strength PT Goal 1 Goal increase WES hip extension and abduction to 4+/5 Target Visit 8 Progress Met PT Problem 4 PT Problem #4 Impaired Flexibility PT Goal 1 Goal improve WES hamstring length to 90/90 -20 or better Target Visit 8 Progress Met PT Goal 2 Goal increase WES calf tightness to MILD tightness or better Target Visit 8 Progress Met
--- NOTE | 2023-05-09 13:31 | PTOPDC ---
Assessment and note entered by Elvis Lugo, PT Discharge Information Assessment Status Discharge Diagnosis Lumbar Stenosis Onset Chronic Subjective Information Reports that he feels therapy has really helped him overall but is continuing to have pain issues with sitting and specific sitting positions. He is planing to follow up and consult with MD about possible surgical options because he is concerned that he will let things go and not be a candidate [place] [facility]. Expresses compliance and understanding of HEP. Would like to be discharged at this time. Reported Pain Level Pain Score 2: Self Report Assessment PT Clinical Summary Patient has made improvement in subjective pain, hip mobility, strength, and gait. Continues to have intermittent pain with daily activity but has improved. Overall he demonstrates a good understanding of HEP and how to continue to address. He is suitable for discharge at this time with follow up as needed. Plan of Care PT Services Indicated No
== END 2023-05-31 13:33 | disposition home or self-care (01) ==
LOC: ANHPT 11:00
PROVIDERS: PCP Family Medicine Adolescent Medicine; Visit Provider Neurological Surgery
DX: M48.061 Spinal stenosis, lumbar region without neurogenic claudication (principal)
CPT/HCPCS: 97110; 97140; 97161; 97530

== ENCOUNTER → 2023-06-01 07:31 | Outpatient (CLI) | payer BC, SELFPAY ==
--- NOTE | ~2023-06-01 | XR_ITS ---
Right elbow Technique: AP and lateral views were obtained. Clinical History: Pain Findings: No acute fracture or dislocation is seen. Osseous alignment is anatomic. There is probable mild degenerative change of the elbow joint. There is no displacement of the fat pads, and soft tissu es are unremarkable. Impression: Mild degenerative change of the elbow joint. Reviewed, dictated and finalized at location . Impression: Mild degenerative change of the elbow joint.
== END ==
PROVIDERS: PCP Nurse Practitioner; Visit Provider Nurse Practitioner
DX: M25.521 Pain in right elbow (principal)
CPT/HCPCS: 73070

== ENCOUNTER 2023-06-20 09:33 | Outpatient (CLI) | payer BC, SELFPAY ==
--- NOTE | 2023-06-20 11:00 | NEURO_ITS ---
Impression: Patient presenting with numbness of right 4th and 5th digits, right wrist soreness, and left hand numbness. # Bilateral ulnar neuropathy with slowing across the elbows. # Bilateral, moderate Carpal Tunnel Syndrome (right worse than left). # Normal needle/EMG exam. # Clinical correlation recommended. Nerve Conduction Studies Anti Sensory Summary Table Stim Site NR Peak (ms) P-T Amp (?V) Site1 Site2 Delta-P (ms) Dist (cm) Severo (m/s) Left Median Anti Sensory (2-3nd Digit) Wrist 4.2 9.2 Wrist 2-3nd Digit 4.2 14.0 33 Wrist 4.8 14.6 Wrist 2-3nd Digit 4.2 14.0 33 Right Median Anti Sensory (2-3nd Digit) Wrist 4.3 5.0 Wrist 2-3nd Digit 4.3 14.0 33 Wrist 5.3 2.2 Wrist 2-3nd Digit 4.3 14.0 33 Left Radial Anti Sensory (Base 1st Digit) Wrist 2.7 12.9 Wrist Base 1st Digit 2.7 0.0 Right Radial Anti Sensory (Base 1st Digit) Wrist 1.5 15.5 Wrist Base 1st Digit 1.5 0.0 Left Ulnar Anti Sensory (5th Digit) Wrist 3.7 11.0 Wrist 5th Digit 3.7 14.0 38 Right Ulnar Anti Sensory (5th Digit) Wrist 3.7 2.2 Wrist 5th Digit 3.7 14.0 38 Motor Summary Table Stim Site NR Onset (ms) O-P Amp (mV) Site1 Site2 Delta-0 (ms) Dist (cm) Severo (m/s) Left Median Motor (Abd Poll Brev) Wrist 4.8 3.6 Elbow Wrist 4.3 23.0 53 Elbow 9.1 2.4 Right Median Motor (Abd Poll Brev) Wrist 5.1 2.7 Elbow Wrist 4.5 24.0 53 Elbow 9.6 2.6 Left Ulnar Motor (Abd Dig Minimi) Wrist 3.4 4.8 A Elbow Wrist 7.2 33.0 46 A Elbow 10.6 2.4 B Elbow Wrist 3.7 23.0 62 B Elbow 7.1 2.5 Right Ulnar Motor (Abd Dig Minimi) Wrist 3.7 4.7 A Elbow Wrist 7.2 32.0 44 A Elbow 10.9 1.9 B Elbow Wrist 4.3 22.0 51 B Elbow 8.0 2.6 F Wave Studies NR F-Lat (ms) L-R F-Lat (ms) Left Median (Mrkrs) (Abd Poll Brev) 30.18 2.28 Right Median (Mrkrs) (Abd Poll Brev) 27.89 2.28 Left Ulnar (Mrkrs) (Abd Dig Min) 30.86 0.00 Right Ulnar (Mrkrs) (Abd Dig Min) 30.86 0.00 EMG Side Muscle Nerve Root Ins Act Fibs Amp Dur Recrt Comment Right 1stDorInt Ulnar C8-T1 Nml Nml Nml Nml Nml Right Ext Indicis Radial (Post Int) C7-8 Nml Nml Nml Nml Nml Right Ext Digitorum Radial (Post Int) C7-8 Nml Nml Nml Nml Nml Right BrachioRad Radial C5-6 Nml Nml Nml Nml Nml Right PronatorTeres Median C6-7 Nml Nml Nml Nml Nml Right Abd Poll Brev Median C8-T1 Nml Nml Nml Nml Nml Left 1stDorInt Ulnar C8-T1 Nml Nml Nml Nml Nml Left Ext Indicis Radial (Post Int) C7-8 Nml Nml Nml Nml Nml Left Ext Digitorum Radial (Post Int) C7-8 Nml Nml Nml Nml Nml Left BrachioRad Radial C5-6 Nml Nml Nml Nml Nml Left PronatorTeres Median C6-7 Nml Nml Nml Nml Nml Left Abd Poll Brev Median C8-T1 Nml Nml Nml Nml Nml MTDD
== END 2023-06-20 09:34 | disposition home or self-care (01) ==
LOC: ANHNEURO 09:34
PROVIDERS: PCP Family Medicine Adolescent Medicine; Visit Provider Orthopaedic Surgery
DX: R20.0 Anesthesia of skin (principal); G56.23 Lesion of ulnar nerve, bilateral upper limbs; G56.03 Carpal tunnel syndrome, bilateral upper limbs
CPT/HCPCS: 95886; 95911

== ENCOUNTER 2023-08-08 08:59 | Outpatient (CLI) | payer BC, SELFPAY ==
[2023-08-08 09:27] LABS: Basophils Absolute Auto 0.1 K/mm3 (0.0-0.1); Basophils Percent Auto 0.9 % (0.2-1.2); Eosinophils Absolute Auto 0.5 K/mm3 (0-0.3); Hematocrit 42.1 % (42.0-52.0); Hemoglobin 13.2 g/dL (14.0-18.0); Immature Granulocyte Absolute 0.01 K/mm3 (0.00-0.031); Immature Granulocyte Percent A 0.1 % (0-0.5); Lymphocytes Absolute Auto 2.92 K/mm3 (0.9-3.2); Lymphocytes Percent Auto 38.5 % (18.3-44.2); Mean Corpuscular HGB Conc 31.4 g/dl (32-36); Mean Corpuscular Volume 86.3 fl (80-100); Mean Platelet Volume 10.5 fl (7.4-10.4); Monocytes Absolute Auto 0.7 K/mm3 (0.1-0.6); Monocytes Percent Auto 9.7 % (2.6-8.5); Neutrophils Absolute Auto 3.3 K/mm3 (1.3-6.7); Neutrophils Percent Auto 43.8 % (45.5-73.1); Platelet Count Result 188 k/mm3 (150-375); Red Blood Count 4.88 M/mm3 (4.6-6.20); Red Cell Distribution Width 14.6 % (11.5-14.5); White Blood Count 7.6 K/mm3 (4.5-10.0)
[2023-08-08 09:28] LABS: Appearance Urine Clear (Clear); Bilirubin Urine Negative (Negative); Blood Urine Negative (Negative); Color Urine Yellow (Yellow); Glucose Urine UA Negative (Negative); Ketones Urine Negative (Negative); Leukocyte Esterase Ur Negative LEU/UL (Negative); Nitrate Urine Negative (Negative); Protein Urine Negative (Negative); Specific Grav Ur 1.006 (1.001-1.035); Urobilinogen Urine 0.2 mg/dL (<2.0); pH Urine 7.5 (5.0-9.0)
[2023-08-08 09:34] LABS: Add Urine Microscopic? NO
[2023-08-08 09:45] LABS: Alanine Aminotransferase 25 U/L (6-50); Albumin Level 4.6 g/dL (3.5-5.1); Alkaline Phosphatase 58 U/L (38-126); Anion Gap 5 mmol/L (8-16); Aspartate Amino Transferase 27 U/L (17-59); Bilirubin,Total 0.5 mg/dL (0.2-1.3); Blood Urea Nitrogen 20 mg/dL (9-20); CRP < 0.5 mg/dL (<1.0); Calcium 9.4 mg/dL (8.4-10.2); Carbon Dioxide 30 mmol/L (22-30); Chloride 103 mmol/L (98-107); Estimated Glomerular Filt Rate > 60; Glucose 110 mg/dL (65-110); Potassium 4.1 mmol/L (3.4-5.0); Sodium 138 mmol/L (137-145)
[2023-08-08 10:15] LABS: Erythrocyte Sedimentation Rate 18 mm/hr (0-20)
== END 2023-08-08 09:00 | disposition home or self-care (01) ==
LOC: ANHLAB 09:03
PROVIDERS: PCP Family Medicine Adolescent Medicine; Visit Provider Internal Medicine
DX: M06.09 Rheumatoid arthritis without rheumatoid factor, multiple sites (principal)
CPT/HCPCS: 36415; 80053; 81003; 85025; 85652; 86140

== ENCOUNTER 2023-08-16 00:51 | Day surgery (SDC) | payer BC, SELFPAY ==
[2023-08-11 14:03] VITALS: BMI 31.6
--- NOTE | 2023-08-11 14:16 | PC.NURSE ---
Report to the Outpatient Waiting Room, entrance under the green pavilion located off [facility], at time 0800_ on date _08/16/23_. Planned Procedure Time: _1000_. Time changes happen often and if your time is changed the preop area will call you the afternoon before. - You and your visitor will be asked to self-screen and do not enter if you have any COVID symptoms. - A mask is optional within the hospital at this time. Patients may have clear liquids (water, carbonated beverages, clear teas, apple juice) until 8 hours prior to surgery with a maximum of 20 ounces. - No food from midnight until time of surgery - Infants may have breast milk until 4 hours before surgery, formula 6 hours prior to surgery. - Children will be allowed to drink immediately following surgery. If applicable, please bring a bottle or sippy cup to assist with drinking. Juice, water, soda, and popsicles are readily available. For infants on formula, please bring formula the day of surgery. Pacifiers are allowed. Take the following medications with a SIP of water the morning of surgery: ____NONE DO NOT STOP ANY OF YOUR OTHER PRESCRIPTION MEDICATIONS PRIOR TO SURGERY ?EXCEPT THE FOLLOWING Medications to discontinue per physician VITAMINS/ SUPPLIMENT Date to take last dose 08/13/23 Please no make-up, nail burkinan, hairspray, perfume, deodorant, or body powder the day of surgery. No jewelry (including any body piercings) or valuables the day of surgery, leave them at home. Please take a shower or bath the night before, or the morning of, surgery with an antibacterial soap. Wear comfortable, loose fitting clothing. Children are encouraged to wear pajamas. - Jewelry must be removed prior to entering the operating room. Rings and piercings that are not removed may be cut off. - The hospital will not accept responsibility for valuables. - Please leave all valuables, including medications, at home the day of surgery. If you are going home after surgery, a licensed local driver must drive you home. - NO public transportation without another adult if you receive anesthesia. - We recommend that an adult stay with you for 24 hours following discharge. - We also recommend that you do not drive, make important decision, drink alcoholic beverages, or take any drugs that were not prescribed by your health care provider for at least 24 hours after your discharge time. For Pediatric surgeries, we recommend two adults accompany the child home. Follow any additional instructions given to you from your surgeon. If you or anyone in your household have experienced Covid symptoms in the past week, please notify your surgeon or the nurse liaison at the phone number below for possible testing. Telephone instructions given to _PATIENT____and asked if any additional questions and then verbalized understanding. Patient advised to call surgeon office or pre surgery nurse liaison [phone] if any additional questions.
--- NOTE | 2023-08-16 07:02 | PM.HPGS ---
History of Present Illness History of Present Illness Chief complaint: right wrist carpal tunnel syndrome Narrative: Patient seen and examined in pre-operative holding area. No interval change in medical history or symptoms. Patient recalls previous discussion of benefits and alternatives to procedure. Continues to desire to proceed with right ectr poss open and right cubital tunnel release. Reviewed procedure, post-op expectations and risks including but not limited to bleeding, infection, injury to tendon/nerve/vessel, decreased hand function, stiffness, RSD, no change or worsening of symptoms. I discussed the possible use of assistants and their participation in the case. Patient stated understanding and signed the consent form wishing to proceed. Review of Systems Review of Systems: All systems reviewed & are unremarkable except as noted in HPI and below PMFSH Past Medical History Medical History Arthritis Diabetes Fracture of triquetrum of right wrist High cholesterol Hyperlipidemia Nephrolithiasis Rheumatoid arthritis Right ureteral calculus Seronegative rheumatoid arthritis of multiple sites Sleep apnea Surgical History Surgical History H/O inguinal hernia repair 03/23/23 Laparoscopic incarcerated left inguinal hernia repair with mesh, da Margaret assisted History of extraction of renal calculus 2019 History of left inguinal hernia repair (02/2023) History of lumbar surgery disc, 1995 History of right inguinal hernia repair (2013) History of rotator cuff surgery 2011 History of shoulder surgery 2011- left Hx of shoulder surgery 08/2021 Family History Family History Father , Age 91 No problems noted. 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 Current Housing: Decline to Answer Concerned About Future Housing: Decline to Answer Difficulty Paying Gas/Electric Bills: Decline to Answer Difficulty Paying for Meds: Decline to Answer Currently Unemployed: Decline to Answer Education: Decline to Answer Difficulty w/ Childcare or Family Care: Decline to Answer Living arrangements: with family Occupation/Education: occupation Additional occupation/education comments: [employer] Gender identity (if verbalized by the patient): Male Sexual Orientation (if Verbalized by the Patient): Straight or Heterosexual Spiritual care concerns: No Agree to blood products: Yes Meds Home Medications and Allergies Home Medications Medication Instructions Recorded Confirmed Type calcium acetate 600 mg PO DAILY 11/03/20 08/11/23 History sitagliptin phosphate 100 mg 100 mg PO DAILY #90 tabs 02/14/23 08/11/23 Rx tablet (Januvia) blood sugar diagnostic ([employer]Touch #100 ea 03/28/23 07/01/23 Rx Ultra Test strips) simvastatin 20 mg tablet 20 mg PO DAILY #90 tabs 04/05/23 08/11/23 Rx baricitinib 2 mg tablet (Olumiant) 2 mg PO DAILY 04/29/23 08/11/23 History metformin 500 mg tablet,extended 1,500 mg PO DAILY #180 tabs 06/09/23 08/11/23 Rx release 24 hr baclofen 10 mg tablet 10 mg PO DAILY 07/01/23 08/11/23 History hydroxychloroquine 200 mg tablet 400 mg PO DAILY #180 tabs 08/09/23 08/11/23 R
--- NOTE | 2023-08-16 07:03 | W.PM.PROC2 ---
Procedure Note - Detailed Date of Procedure 08/16/23 Pre-op Diagnosis right carpal and cubital tunnel syndrome Post-op Diagnosis Same Procedure Performed right ectr and cubital tunnel release Surgeon Jose Juan Vences MD Educational Audiologist brian cho pa-c Anesthesia MAC Description of Procedure INFORMED CONSENT: The patient was seen and examined and marked in the pre-op area.? The patient signed the consent form. PROCEDURE IN DETAIL:The patient taken back to OR on the stretcher in supine position. Time out performed with anesthesia, surgeon and staff agreeing on patient's name site and surgery to be performed SCDs were placed on the lower extremities and inflated. A tourniquet was placed on {right} upper extremity and antibiotics given IV After anesthesia administered sedation I injected {10}cc 1%lido with epi and 0.5% marcaine plain at the operative sites The?{right upper extremity}?was prepped and draped in sterile fashion the??{right upper extremity} was? exsanguinated with Esmarch bandage and tourniquet inflated to 250mmHg I made a transverse incision in the {right} volar distal wrist crease through skin and dermis with 15 blade scalpel.? Littler scissors spread down to antebrachial fascia. A small incision was made in antebrachial fascia allowing access to Carpal tunnel. I proceeded with sequential dilation staying in line with the ring finger and hugging the hook of the hamate.? I then used the synovial elevator to free any adhesions from the underside of the transverse carpal ligament. Next I was able to insert the Microaire endoscopic carpal tunnel device with direct visualization of the transverse fibers on the monitor and proceeded with complete segmental retrograde release of the ligament in its entirety.? I irrigated with normal saline and closed with 4-0 monocryl for dermis and subcuticular closure. I next proceeded with making a longitudinal incision between two heads for flexor carpi ulnaris at end of {right} cubital tunnel with 15 blade scalpel.? Littler scissors were used to spread down to FCU fascia.? An incision was made in FCU fascia and ulnar nerve identified exiting cubital tunnel.? I proceeded with complete retrograde release of the cubital tunnel including 7cm proximal for the intermuscular septum.? The nerve appeared healthy with visible vaso nervorum.? There was no subluxation on full elbow range of motion. ? I irrigated with normal saline and closure with 4-0 monocryl for dermis and subcuticular. The incisions were covered with Dermabond then 4x4s, ze, and a posterior elbow and volar wrist splint for patient safety, security and comfort and secured with annita bandages after the tourniquet was let down noting the hand was warm and well perfused.? Patient awaken from anesthesia and transferred to recovery in stable condition Complications - none EBL- 1cc Disposition - home in stable conditions Brian Cho PA-C was essential for positioning, retraction, closure and dressing placement [facility] Billing Surgery - Charge Forward: Surgery Billing ([id number] and [id number] and [id number] same codes for brian but add modifier)
[2023-08-16 07:51] VITALS: BP 122/83; PULSE 89; RESP 16; TEMP 36.6; O2SAT 97
--- NOTE | 2023-08-16 08:37 | WPDANESEPPF ---
Anes - Initial Pre Proc Eval Procedure: Operation Date: 08/16/23 09:30 Proposed Procedures p Right Endoscopic Carpal Tunnel Release, Possible Open, Cubital Tunnel Release - Jose Juan Vences MD Date/Time: 08/16/23 08:37 Surgeon: Jose Juan Vences MD Pre Op Diagnosis: right wrist carpal tunnel syndrome Patient Data Age: 62 Gender: M Height: 1.83 m Weight: 105.4 kg Last Vital Signs Temp 36.6 C 08/16/23 07:51 Pulse 89 08/16/23 07:51 Resp 16 08/16/23 07:51 BP 122/83 08/16/23 07:51 Pulse Ox 97 08/16/23 07:51 O2 Del Method Room Air 08/16/23 07:51 Allergies Allergy/AdvReac Type Severity Reaction Status Date / Time neomycin Allergy Intermediate Rash Verified 08/11/23 13:58 Home Medications Medication Instructions Recorded Confirmed Type calcium acetate 600 mg PO DAILY 11/03/20 08/11/23 History sitagliptin phosphate 100 mg 100 mg PO DAILY #90 tabs 02/14/23 08/11/23 Rx tablet (Januvia) blood sugar diagnostic ([employer]Touch #100 ea 03/28/23 07/01/23 Rx Ultra Test strips) simvastatin 20 mg tablet 20 mg PO DAILY #90 tabs 04/05/23 08/11/23 Rx baricitinib 2 mg tablet (Olumiant) 2 mg PO DAILY 04/29/23 08/11/23 History metformin 500 mg tablet,extended 1,500 mg PO DAILY #180 tabs 06/09/23 08/11/23 Rx release 24 hr baclofen 10 mg tablet 10 mg PO DAILY 07/01/23 08/11/23 History hydroxychloroquine 200 mg tablet 400 mg PO DAILY #180 tabs 08/09/23 08/11/23 Rx (Plaquenil) leflunomide 10 mg tablet 10 mg PO DAILY #90 tabs 08/09/23 08/11/23 Rx sildenafil (pulm.hypertension) 20 See Rx Instructions PO DAILY PRN 08/11/23 08/11/23 History mg tablet impotence vitamin B complex (B 1 tablet PO DAILY 08/11/23 08/11/23 History Complex-Vitamin B12 tablet) Patient hx anesthesia problems: none Family hx anesthesia problems: none Results Review: All pre-operative results and documents have been reviewed as part of the pre-operative evaluation. [facility] Past Medical History Medical History Arthritis Diabetes Fracture of triquetrum of right wrist High cholesterol Hyperlipidemia Nephrolithiasis Rheumatoid arthritis Right ureteral calculus Seronegative rheumatoid arthritis of multiple sites Sleep apnea Surgical History Surgical History H/O inguinal hernia repair 03/23/23 Laparoscopic incarcerated left inguinal hernia repair with mesh, da Margaret assisted History of extraction of renal calculus 2019 History of left inguinal hernia repair (02/2023) History of lumbar surgery disc, 1995 History of right inguinal hernia repair (2013) History of rotator cuff surgery 2011 History of shoulder surgery 2011- left Hx of shoulder surgery 08/2021 Family History Family History Father , Age 91 No problems noted. 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
[2023-08-16] MEDS: LACTATED RINGERS 1,000 ML 30 ML IV CONT (09:32)
[2023-08-16] MEDS: ceFAZolin 2 GM/D5W 50 ML 2 GM/50 ML BAG IVPB (09:40)
[2023-08-16] MEDS: LIDO 1%/EPINEPHRINE 1:100,000 20 ML VIAL 10 ML INFILTRATE (10:05)
[2023-08-16 10:17] VITALS: BP 128/76; PULSE 87; RESP 18; O2SAT 99
[2023-08-16 10:29] LABS: Glucose Point of Care 120 mg/dl (65-105)
[2023-08-16 10:45] VITALS: BP 141/75; PULSE 80; RESP 18; O2SAT 99
[2023-08-16 11:15] VITALS: BP 138/84; PULSE 80; RESP 16
[2023-08-16 11:33] LABS: HIV 1/2 Ab P24 Ag Result Negative (Negative)
[2023-08-16 12:26] LABS: Hepatitis B Surface Antigen Negative (Negative)
[2023-08-16 12:43] LABS: Hepatitis C Virus Antibody Negative (Negative)
== END 2023-08-16 11:18 | disposition home or self-care (01) ==
PROVIDERS: PCP Family Medicine Adolescent Medicine; Visit Provider Plastic Surgery
PROC: 01N54ZZ Release Median Nerve, Percutaneous Endoscopic Approach (ICD-10-PCS; CPT 29848; principal; 2023-08-16 09:30)
DX: G56.01 Carpal tunnel syndrome, right upper limb (principal); G56.21 Lesion of ulnar nerve, right upper limb; E11.9 Type 2 diabetes mellitus without complications; E78.00 Pure hypercholesterolemia, unspecified; M06.09 Rheumatoid arthritis without rheumatoid factor, multiple sites; G47.30 Sleep apnea, unspecified; Z87.891 Personal history of nicotine dependence; Z79.84 Long term (current) use of oral hypoglycemic drugs
CPT/HCPCS: 29848; 64718; 36415; 82948; 86703; 86803; 87340; G0432; J0690; J2250; J2704; J3010; J7120

== ENCOUNTER 2023-12-14 15:44 | Outpatient (CLI) | payer BC, SELFPAY ==
[2023-12-14 16:17] LABS: Hematocrit 38.9 % (42.0-52.0); Hemoglobin 12.4 g/dL (14.0-18.0); Mean Corpuscular HGB Conc 31.9 g/dl (32-36); Mean Corpuscular Hemoglobin 28.1 pg (26-34); Mean Platelet Volume 10.3 fl (7.4-10.4); Platelet Count Result 186 k/mm3 (150-375); Red Blood Count 4.42 M/mm3 (4.6-6.20); Red Cell Distribution Width 13.9 % (11.5-14.5)
[2023-12-14 16:29] LABS: Alanine Aminotransferase 28 U/L (6-50); Albumin Level 4.5 g/dL (3.5-5.1); Alkaline Phosphatase 46 U/L (38-126); Anion Gap 8 mmol/L (4-12); Aspartate Amino Transferase 29 U/L (17-59); Bilirubin,Total 0.5 mg/dL (0.2-1.3); Blood Urea Nitrogen 22 mg/dL (9-20); CRP < 0.5 mg/dL (<1.0); Calcium 9.2 mg/dL (8.4-10.2); Carbon Dioxide 24 mmol/L (22-30); Chloride 107 mmol/L (98-107); Estimated Glomerular Filt Rate > 60; Glucose 112 mg/dL (65-110); Sodium 139 mmol/L (137-145)
[2023-12-14 16:47] LABS: Erythrocyte Sedimentation Rate 13 mm/hr (0-20)
== END 2023-12-14 15:45 | disposition home or self-care (01) ==
LOC: ANHLAB 15:45
PROVIDERS: PCP Family Medicine Adolescent Medicine; Visit Provider Internal Medicine
DX: M19.90 Unspecified osteoarthritis, unspecified site (principal); M06.09 Rheumatoid arthritis without rheumatoid factor, multiple sites
CPT/HCPCS: 36415; 80053; 85027; 85652; 86140

== ENCOUNTER 2024-05-03 16:44 | Outpatient (CLI) | payer BC, SELFPAY ==
--- NOTE | ~2024-05-03 | XR_ITS ---
EXAMINATION: XR abdomen/kub 1V DATE: 05/03/2024 17:10 INDICATION: Right kidney stone. TECHNIQUE: A supine view of the abdomen on 2 radiographs was obtained. COMPARISON: None currently available. FINDINGS: There are no dilated loops of bowel. There is a 13 x 5 mm calcification in the area of prox imal right ureter. There are phleboliths in the pelvis. There are surgical clips in right pelvis. IMPRESSION: 1. 13 x 5 mm calcification in the area of proximal right ureter that may be a ureteral stone. Reviewed, dictated and finalized at location A. IMPRESSION: 1. 13 x 5 mm calcification in the area of proximal right ureter that may be a u reteral stone.
== END 2024-05-03 16:45 | disposition home or self-care (01) ==
PROVIDERS: PCP Family Medicine Adolescent Medicine; Visit Provider Urology
DX: N20.0 Calculus of kidney (principal)
CPT/HCPCS: 74018

== ENCOUNTER 2024-05-11 15:07 | Outpatient (CLI) | payer BC, SELFPAY ==
--- NOTE | ~2024-05-11 | CT_ITS ---
EXAMINATION: CT abdomen pelvis wo con DATE: 05/11/2024 15:26 INDICATION: Right ureteral stone. TECHNIQUE: Computed tomography (CT) of the abdomen and pelvis was performed without intravenous contr ast. Automated exposure control and iterative reconstruction technique were employed. The dose-length product was 940.63 mGy-cm. COMPARISON: CT abdomen and pelvis 02/20/2023. FINDINGS: The visualized portions of the lung bases demonstrate mild atelectasis. No pleural effusion . The heart size is normal. There are coronary artery calcifications. No pericardial effusion. There are calcifications of the aortic valve. There is diffuse hepatic steatosis. The gallbladder, spleen, pancreas, and right adrenal gland are normal. There is a 15 mm mass in left adrenal gland measuring l ow attenuation, consistent with an adenoma. There are 13 mm and 4 mm stones in right kidney. Left kid gerardo is normal. There is diverticulosis of the colon. There is fat stranding around an epiploic append age of sigmoid colon, consistent with epiploic appendagitis. There are no dilated loops of bowel. The appendix is normal. There are no pathologically enlarged lymph nodes. There is no free intraperitone al fluid. There is severe lower lumbar spondylosis. There is mild chronic anterior wedging of multipl e thoracic vertebral bodies. IMPRESSION: 1. Nonobstructing right kidney stones. 2. Epiploic appendagitis of sigmoid colon. Reviewed, dictated and finalized at location A.
--- NOTE | ~2024-05-11 | XR_ITS ---
XR abdomen/kub 1V Ordering provider: Bryan Ospina MD History: . Right ureteral stone . Comparison: None. FINDINGS: BOWEL: Nonobstructive bowel gas pattern. ORGANOMEGALY: None. SIGNIFICANT PATHOLOGIC CALCIFICATIONS: The previously seen stone in the right upper ureter is not dem onstrated at this time. OTHER: No free air is seen under the diaphragm. Degenerative changes of the spine. IMPRESSION: NO ACUTE ABDOMINAL FINDINGS. Previously seen stone is not demonstrated at this time. Reviewed, dictated and finalized at location A.
== END 2024-05-11 15:08 | disposition home or self-care (01) ==
LOC: GOSHIMG 15:08
PROVIDERS: PCP Family Medicine Adolescent Medicine; Visit Provider Urology
DX: N20.1 Calculus of ureter (principal); K63.89 Other specified diseases of intestine
CPT/HCPCS: 74018; 74176

== ENCOUNTER 2024-05-19 07:14 | Outpatient (CLI) | payer BC, SELFPAY ==
--- NOTE | ~2024-05-19 | XR_ITS ---
XR abdomen/kub 1V DATE: 05/19/2024 07:26 INDICATION: Right ureteral calculus TECHNIQUE: 2 supine AP views COMPARISON: 05/[address] abdomen pelvis FINDINGS: Surgical clips from right inguinal herniorrhaphy are noted. Prominent bilateral internal iliac arterial calcifications are noted. Faintly calcified right lower pole renal calculus is suggested. No visceromegaly is noted. The psoas shadows are intact. No evidence of bowel obstruction. IMPRESSION: Nonspecific abdomen Reviewed, dictated and finalized at Location A. Reviewed, dictated and finalized at location A. IMPRESSION: Nonspecific abdomen
== END 2024-05-19 07:15 | disposition home or self-care (01) ==
PROVIDERS: PCP Family Medicine Adolescent Medicine; Visit Provider Urology
DX: N20.0 Calculus of kidney (principal)
CPT/HCPCS: 74018

== ENCOUNTER 2024-06-01 12:16 | Outpatient (CLI) | payer BC, SELFPAY ==
--- NOTE | 2024-06-01 12:26 | ECG_ITS ---
Test Date: 2024-06-01 12:31:36 Measurements Intervals [place] Rate: 78 P: -22 LA: 155 QRS: 36 QRSD: 115 T: 46 QT: 369 QTc: 420 Interpretive Statements SINUS RHYTHM MODERATE INTRAVENTRICULAR CONDUCTION DELAY [110+ ms QRS DURATION] No previous ECG available for comparison Electronically Signed On 06-01-2024 13:14:46 CDT by Shahram Shankar M.D.
[2024-06-01 13:00] LABS: Anion Gap 8 mmol/L (4-12); Blood Urea Nitrogen 12 mg/dL (9-20); Calcium 9.5 mg/dL (8.4-10.2); Carbon Dioxide 27 mmol/L (22-30); Chloride 104 mmol/L (98-107); Estimated Glomerular Filt Rate > 60; Glucose 101 mg/dL (65-110); Potassium 4.2 mmol/L (3.4-5.0); Sodium 139 mmol/L (137-145)
== END 2024-06-01 12:17 | disposition home or self-care (01) ==
LOC: ANHSURGERY 12:20
PROVIDERS: Anesthesiology; PCP Family Medicine Adolescent Medicine; Visit Provider Urology
DX: Z01.818 Encounter for other preprocedural examination (principal); E11.9 Type 2 diabetes mellitus without complications; I45.89 Other specified conduction disorders
CPT/HCPCS: 36415; 80048; 93005

== ENCOUNTER 2024-06-05 00:32 | Day surgery (SDC) | payer BC, SELFPAY ==
[2024-05-31 11:29] VITALS: BMI 34.0
--- NOTE | 2024-05-31 11:30 | PC.NURSE ---
Report to the Outpatient Waiting Room, entrance under the green pavilion located off [facility], at time _0615_ on date _[id number]_. Planned Procedure Time: _0815_.? Time changes happen often and if your time is changed the preop area will call you the afternoon before. - You and your visitor will be asked to self-screen and do not enter if you have any COVID symptoms. Please call surgeon if you need to reschedule. - A mask is optional within the hospital at this time. Patients may have clear liquids (water, carbonated beverages, clear teas, apple juice) until 3 hours prior to surgery with a maximum of 20 ounces. - No food from midnight until time of surgery and no smoking Take only the following medications with a SIP of water on the morning of surgery: ___None DO NOT STOP ANY OF YOUR OTHER PRESCRIPTION MEDICATIONS PRIOR TO SURGERY EXCEPT THE FOLLOWING Medications to discontinue per physician ____Vitamins Date to take last hwol___[phone] Please no make-up, nail puerto rican, hairspray, perfume, deodorant, or body powder the day of surgery.? No jewelry (including any body piercings) or valuables the day of surgery, leave them at home.? Please take a shower or bath the night before, or the morning of, surgery with an antibacterial soap.? Wear comfortable, loose fitting clothing.? . - Jewelry must be removed prior to entering the operating room.? Rings and piercings that are not removed may be cut off. - The hospital will not accept responsibility for valuables.? - Please leave all valuables, including medications, at home the day of surgery. If you are going home after surgery, a licensed driver merchandiser must drive you home.? - NO public transportation without another adult if you receive anesthesia. - We recommend that an adult stay with you for 24 hours following discharge. - We also recommend that you do not drive, make important decision, drink alcoholic beverages, or take any drugs that were not prescribed by your health care provider for at least 24 hours after your discharge time. Follow any additional instructions given to you from your surgeon. Telephone instructions given to _Tim___and asked if any additional questions and then verbalized understanding. Patient advised to call surgeon office or pre surgery nurse liaison [phone] if any additional questions.
--- NOTE | ~2024-06-05 | XR_ITS ---
EXAMINATION: XR retrograde pyelo w/stent RT DATE: 06/05/2024 10:19 INDICATION: Right kidney stone. TECHNIQUE: 3 intraoperative fluoroscopic views of the abdomen and pelvis were obtained. I was not pre sent. Fluoroscopy exposure time was 19 seconds. COMPARISON: CT abdomen pelvis 05/11/2024 FINDINGS: The right-sided retrograde pyelogram demonstrates mild hydronephrosis. There is a wire in t he renal pelvis. IMPRESSION: 1. Mild right hydronephrosis. Reviewed, dictated and finalized at location A.
--- NOTE | 2024-06-05 07:11 | WPDHPUPDATE1 ---
History and Physical Update Update Date/Time: 06/05/24 07:11 History and Physical has been reviewed, including an updated exam of the patient. There are NO changes in the patient's condition. Risks, benefits, and alternatives have been discussed and questions answered. Patient agrees to proceed with procedure.
[2024-06-05 08:46] LABS: Glucose Point of Care 141 mg/dl (65-105)
--- NOTE | 2024-06-05 08:50 | WPDANESEPPF ---
Anes - Initial Pre Proc Eval Procedure: Operation Date: 06/05/24 10:00 Proposed Procedures p Cystoscopy, Right Ureteroscopy, Possible Right Retrograde Pyelogram, Possible Right Stone Extraction, Possible Right Stent Placement, Possible Holmium Laser Procedure - Bryan Ospina MD Date/Time: 06/05/24 08:50 Surgeon: Bryan Ospina MD Pre Op Diagnosis: right renal stone Patient Data Age: 63 Gender: M Height: 1.83 m Weight: 113.6 kg Allergies Allergy/AdvReac Type Severity Reaction Status Date / Time neomycin Allergy Intermediate Rash Verified 05/31/24 11:18 Home Medications Medication Instructions Recorded Confirmed Type calcium acetate 600 mg PO DAILY 11/03/20 05/31/24 History baricitinib 2 mg tablet (Olumiant) 2 mg PO DAILY 04/29/23 05/31/24 History sildenafil (pulm.hypertension) 20 See Rx Instructions PO DAILY PRN 08/11/23 05/31/24 History mg tablet impotence vitamin B complex (B 1 tablet PO DAILY 08/11/23 05/31/24 History Complex-Vitamin B12 tablet) baclofen 10 mg tablet See Rx Instructions .Route 10/31/23 05/31/24 Rx .COMPLEX #90 tabs sitagliptin phosphate 100 mg 100 mg PO DAILY #90 tabs 12/02/23 05/31/24 Rx tablet (Januvia) simvastatin 20 mg tablet 20 mg PO DAILY #90 tabs 12/25/23 05/31/24 Rx blood sugar diagnostic (OneTouch #100 ea 01/27/24 05/31/24 Rx Ultra Test strips) leflunomide 10 mg tablet 10 mg PO DAILY #90 tabs 02/25/24 05/31/24 Rx hydroxychloroquine 200 mg tablet 400 mg PO DAILY #180 tabs 03/29/24 05/31/24 Rx (Plaquenil) metformin 500 mg tablet,extended 1,500 mg PO DAILY #270 tabs 06/02/24 Rx release 24 hr Laboratory Tests 06/05/24 08:43 POC Capillary Glucose 141 H mg/dl (65-105) Patient hx anesthesia problems: none Family hx anesthesia problems: none Results Review: All pre-operative results and documents have been reviewed as part of the pre-operative evaluation. [facility] Past Medical History Medical History Arthritis Diabetes Fracture of triquetrum of right wrist High cholesterol Hyperlipidemia Nephrolithiasis Rheumatoid arthritis Right ureteral calculus Seronegative rheumatoid arthritis of multiple sites Sleep apnea Surgical History Surgical History H/O inguinal hernia repair 03/23/23 Laparoscopic incarcerated left inguinal hernia repair with mesh, da Margaret assisted History of extraction of renal calculus 2019 History of left inguinal hernia repair (02/2023) History of lumbar surgery disc, 1995 History of right inguinal hernia repair (2013) History of rotator cuff surgery 2011 History of shoulder surgery 2011- left Hx of shoulder surgery 08/2021 Family History Family History Father , Age 91 No problems noted. 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
[2024-06-05 08:56] VITALS: BP 125/83; PULSE 84; TEMP 36.1; O2SAT 99; BMI 32.1
[2024-06-05] MEDS: ceFAZolin 2 GM/D5W 50 ML 2 GM/50 ML BAG IVPB (09:39)
[2024-06-05] MEDS: LIDOCAINE HCL 2% GEL UROJET 10 ML PKG MUCOUS MEM (09:55)
--- NOTE | 2024-06-05 10:18 | P.OP_ITS ---
Procedure Note - Detailed Date of Procedure 06/05/24 Pre-op Diagnosis right renal stone 1.7 cm Post-op Diagnosis Same Procedure Performed Cystoscopy, right retrograde pyelogram, right ureteroscopy with laser, stent placement 4.8 Palestinian contour Surgeon Bryan Ospina MD Anesthesia General Description of Procedure Patient was taken to the operative suite correctly identified. Once anesthesia was obtained was placed in dorsal lithotomy position and prepped and draped usual sterile fashion. Twenty-two Palestinian scope was inserted the bladder there no tumors noted. The right ureteral orifice was cannulated with a guidewire. I dilated with an 8/10 dilator. Ureteral access sheath was then placed. Mini flexible ureteral scope was inserted up in the kidney. The stone was noted in the renal pelvis. Using a 200 micron fiber I dusted the stone. There was nothing adequate to grasp been retrieved. Pyelogram was then performed confirm placement of the stent. 4.8 Palestinian contour stent was then placed with the proximal end coiled in the renal pelvis and the distal in the bladder. Patient taken recovery stable condition. He will follow-up in a week's time for stent removal. He is to call for that appointment. Will plan on sending him for metabolic stone workup at that time also. This completes dictation. Please send a copy of op note to my office. Estimated Blood Loss 0 Drains Yes Packing No Pathology None sent Complications No immediate complications Condition Stable Disposition PACU
[2024-06-05 10:21] VITALS: BP 136/87; PULSE 70; RESP 12; TEMP 36.6; O2SAT 99
[2024-06-05] MEDS: LACTATED RINGERS 1,000 ML 30 ML IV CONT (10:21)
[2024-06-05 10:35] VITALS: BP 141/88; PULSE 68; RESP 12; O2SAT 99
--- NOTE | 2024-06-05 10:42 | SUR.PHASEI ---
simple mask removed [id number]
[2024-06-05 10:44] LABS: Glucose Point of Care 131 mg/dl (65-105)
[2024-06-05 10:50] VITALS: BP 136/87; PULSE 74; RESP 14; O2SAT 99
[2024-06-05 11:02] VITALS: BP 138/95; PULSE 76; RESP 18; O2SAT 100
[2024-06-05 11:40] VITALS: BP 138/81; PULSE 73
== END 2024-06-05 11:57 | disposition home or self-care (01) ==
PROVIDERS: PCP Family Medicine Adolescent Medicine; Visit Provider Urology
PROC: (CPT 52352; principal; 2024-06-05 10:00)
DX: N20.0 Calculus of kidney (principal); N13.30 Unspecified hydronephrosis; M48.061 Spinal stenosis, lumbar region without neurogenic claudication; G47.30 Sleep apnea, unspecified; E78.00 Pure hypercholesterolemia, unspecified; E11.9 Type 2 diabetes mellitus without complications; M06.09 Rheumatoid arthritis without rheumatoid factor, multiple sites; E66.9 Obesity, unspecified; Z68.32 Body mass index [BMI] 32.0-32.9, adult; Z79.84 Long term (current) use of oral hypoglycemic drugs; Z98.890 Other specified postprocedural states; Z87.891 Personal history of nicotine dependence; Z83.719 Family history of colon polyps, unspecified
CPT/HCPCS: 52356; 36415; 74420; 80048; 82948; 93005; C1769; C1894; C2617; J0690; J1100; J2405; J2704; J7120; Q9966

== ENCOUNTER 2024-08-02 16:00 | Outpatient (CLI) | payer BC, SELFPAY ==
[2024-08-02 16:33] LABS: Add Urine Microscopic? YES; Appearance Urine Clear (Clear); Bacteria Urine None Seen /hpf; Bilirubin Urine Negative (Negative); Blood Urine Negative (Negative); Color Urine Yellow (Yellow); Glucose Urine UA Trace mg/dL (Negative); Ketones Urine Negative (Negative); Leukocyte Esterase Ur Negative LEU/UL (Negative); Nitrate Urine Negative (Negative); Non Pathogenic Casts 0-2; Protein Urine Trace mg/dL (Negative); RBC Urine 0-2 /hpf (0-2); Specific Grav Ur 1.022 (1.001-1.035); Squamous Epithelial Cell Urine None Seen /hpf (Few); WBC Urine 0-5 /hpf (0-3); pH Urine 5.5 (5.0-9.0)
[2024-08-02 16:42] LABS: Albumin Level 4.5 g/dL (3.5-5.1); Anion Gap 4 mmol/L (4-12); Blood Urea Nitrogen 15 mg/dL (9-20); Calcium 9.1 mg/dL (8.4-10.2); Carbon Dioxide 30 mmol/L (22-30); Chloride 103 mmol/L (98-107); Estimated Glomerular Filt Rate > 60; Glucose 176 mg/dL (65-110); Phosphorus 3.1 mg/dL (2.5-4.5); Potassium 3.9 mmol/L (3.4-5.0); Sodium 137 mmol/L (137-145); Uric Acid 4.2 mg/dL (3.5-8.5)
[2024-08-02 17:14] LABS: Prostate Specific Antigen 1.5 ng/mL (< OR = 4.0)
[2024-08-02 18:42] LABS: Parathyroid Intact 46.3 pg/mL (14.5-75.2)
== END 2024-08-02 16:01 | disposition home or self-care (01) ==
LOC: ANHLAB 16:03
PROVIDERS: Internal Medicine Nephrology; Nurse Practitioner Family; PCP Family Medicine Adolescent Medicine; Visit Provider Internal Medicine
DX: N20.0 Calculus of kidney (principal); E11.42 Type 2 diabetes mellitus with diabetic polyneuropathy; E78.00 Pure hypercholesterolemia, unspecified; M06.09 Rheumatoid arthritis without rheumatoid factor, multiple sites; Z12.5 Encounter for screening for malignant neoplasm of prostate
CPT/HCPCS: 36415; 80069; 81001; 83970; 84153; 84550; G0103

== ENCOUNTER 2024-08-18 07:03 | Outpatient (CLI) | payer BC, SELFPAY ==
[2024-08-18 07:27] LABS: Cholesterol 159 mg/dL (0-200); HDL Direct 52 mg/dL; Triglycerides 130 mg/dL (<150)
[2024-08-18 07:37] LABS: LDL Cholesterol Direct 66 mg/dL
== END 2024-08-18 07:04 | disposition home or self-care (01) ==
LOC: ANHLAB 07:04
PROVIDERS: PCP Family Medicine Adolescent Medicine; Visit Provider Nurse Practitioner Family
DX: E78.00 Pure hypercholesterolemia, unspecified (principal)
CPT/HCPCS: 36415; 80061

== ENCOUNTER 2024-08-31 15:53 | Outpatient (CLI) | payer BC, SELFPAY ==
[2024-08-31 16:16] LABS: Anion Gap 1 mmol/L (4-12); Blood Urea Nitrogen 14 mg/dL (9-20); Calcium 9.3 mg/dL (8.4-10.2); Carbon Dioxide 32 mmol/L (22-30); Chloride 102 mmol/L (98-107); Estimated Glomerular Filt Rate > 60; Glucose 143 mg/dL (65-110); Potassium 4.4 mmol/L (3.4-5.0); Sodium 135 mmol/L (137-145)
== END 2024-08-31 15:54 | disposition home or self-care (01) ==
LOC: ANHLAB 15:54
PROVIDERS: PCP Family Medicine Adolescent Medicine; Visit Provider Internal Medicine Nephrology
DX: N20.0 Calculus of kidney (principal)
CPT/HCPCS: 36415; 80048

== ENCOUNTER 2024-12-31 15:57 | Outpatient (CLI) | payer BC, SELFPAY ==
--- OUTSIDE RECORDS SUMMARY | 2024-12-31 16:29 | XMS_ITS | Referral Summary ---
Author Organization [facility] al Address [address] [place] [address] Care Team Providers Care Manager Play Name Role Phone Michael Torres MD Primary Care Prov ider Michael Lewis MD Unavailable [phone] Allergies Active Allergy Reactions Criticality Noted Date Comments Neomycin Medications naproxen (NAPROSYN) 500 mg tablet Take 1 tablet (500 mg total) by mouth 2 (two) times a day Take with food. 30 tablet 9 Active Additional Information Patient not taking.Reported on 09/09/2022 predniSONE (DELTASONE) 10 mg tablet Take 6 tablets oral daily for 3 days then 5 tablets daily for 3 days 4 tablets daily for 3 days then 3 tablets daily for 3 days then 2 tablets daily for 1 day then 1 tablet daily for 1 day then stop. 57 tablet 9 Active Additional Information Patient not taking.Reported on 09/09/2022 metFORMIN XR (GLUCOPHAGE XR) 500 mg 24 hr tablet Take by mouth every evening 2 Active Januvia 100 mg tablet Take 1 tablet (100 mg total) by mouth daily 2 Active glimepiride (AMARYL) 1 mg tablet Take 1 tablet (1 mg total) by mouth daily 2 Active cyanocobalamin (Vitamin B-12) 1,000 mcg tablet Take 1 tablet (1,000 mcg total) by mouth daily 0 Active baclofen (LIORESAL) 10 mg tablet 3 Active benzonatate (TESSALON) 200 mg capsule TAKE 1 CAPSULE BY MOUTH THREE TIMES DAILY NEEDED FOR COUGH 2 Active OneTouch Ultra Test strip USE TO TEST BLOOD GLUCOSE DAILY 3 Active hydrOXYchloroQU INE (PLAQUENIL) 200 mg tablet Take 2 tablets (400 mg total) by mouth daily 3 Active indomethacin (INDOCIN) 50 mg capsule TAKE 1 CAPSULE BY MOUTH THREE TIMES A DAY WITH FOOD OR MILK 3 Active leflunomide (ARAVA) 10 mg tablet Take 1 tablet (10 mg total) by mouth daily 3 Active meloxicam (MOBIC) 15 mg tablet Take 1 tablet (15 mg total) by mouth daily 2 Active sildenafiL, pulm.hypertensi on, (REVATIO) 20 mg tablet Take 1 tablet (20 mg total) by mouth daily as needed 2 Active simvastatin (ZOCOR) 20 mg tablet Take 1 tablet (20 mg total) by mouth daily 3 Active baricitinib (Olumiant) 2 mg tablet tablet Take by mouth Ac tive gabapentin (NEURONTIN) 300 mg capsule Take 2 capsules (600 mg total) by mouth 3 (three) times a day 3 Active upadacitinib (Rinvoq) 15 mg tablet extended release 24 hr Take 30 mg by mouth daily 3 Active Active Problems Problem Noted Date Diagnosed Date Popliteal artery aneurysm, bilateral 10/06/2023 Assessment & Plan (11/10/2023 3:47 PM CDT): Impression: Patient remains asymptomatic. Patient has triphasic waveforms on lower extremity arterial duplex. CT of abdomen and pelvis performed on 11/03/2023 did not show evidence of bilateral popliteal artery aneurysms. 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 Plan: Discussed patient, plan of care, and reviewed CTA with Dr. Deuce Lewis. - Patient no longer requires further surveillance as no popliteal artery aneurysm were found on CTA. He does have evidence of atherosclerosis to bilateral lower extremities on CT scan however he remains asymptomatic. -patient to follow-up on an as-needed basis. Encouraged patient to make a sooner appointment if he develops symptoms of claudication. Patient voices understanding. - Advised patient to follow up with PCP regarding Alexander's cyst for further evaluation Assessment & Plan (10/06/2023 1:12 PM CONSULTING PSYCHOLOGIST): Impression: Patient has triphasic waveforms to lower extremity arterial duplex. Measurement discrepancies were noted to bilateral popliteal arteries on recent duplex scan compared to 1 year ago. Plan: Discussed patient and plan of care with Dr. Deuce Lewis -recommend CTA of abdomen and pelvis with runoff for further evaluation of bilateral popliteal arteries and aorta. Type 2 diabetes mellitus wit hout complication, without long-term current use of insulin 10/06/2023 Assessment & Plan (11/10/2023 3:37 PM CDT): Impression: Chronic and stable. Plan: Continue Januvia metformin and glimeripiride. Assessment & Plan (10/06/2023 1:13 PM CONSULTING PSYCHOLOGIST): Impression: Chronic and stable. Plan: Continue Januvia metformin and glimerpiride Other hyperlipidemia 10/06/2023 Assessment & Plan (10/06/2023 1:14 PM CONSULTING PSYCHOLOGIST): Impression: Chronic stable. 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 Patient is currently stable. Plan: Continue Plaquenil Assessment & Plan (10/06/2023 1:15 PM CONSULTING PSYCHOLOGIST): Impression: Recently diagnosed with rheumatoid arthritis. Plan: Continue Plaquenil Pain in both lower extremities 09/10/2022 Assessment & Plan (10/03/2022 10:01 PM CONSULTING PSYCHOLOGIST): Edema and pain to his extremities and joints have significantly improved. Bilateral lower extremities continued to be warm well perfused with palpable distal pulses. He also continues to deny any claudication pain or rest pain. Bilateral lower extremity arterial duplex shows bilateral triphasic waveforms distally. Left popliteal artery measures 1.0 cm x 0.88 cm. Plan: Return in 1 year for routine lower extremity arterial duplex. Assessment & Plan (09/10/2022 2:24 PM CONSULTING PSYCHOLOGIST): Patient referred to vascular for concern of arterial calcifications seen on a plain x-ray done of his right knee on 08/31/2022. He was told he may have a popliteal aneurysm. He denies any symptoms of claudication or rest pain. Has a history of RA versus OA is currently in what seems to be a flare as all of his joints are swollen and he is in a lot of pain. He is currently taking meloxicam Tylenol and recently started on indomethacin. Both lower extremities are warm well perfused with palpable distal pulses. Joints are obviously swollen. Plan: Continue taking his medications to help with his arthritis. Obtain a lower extremity arterial duplex and follow-up in the next couple of weeks to discuss the results. Inguinal hernia 03/20/2010 Resolved Problems Problem Noted Date Diagnosed Date Resolved Date Primary hypertension 10/06/2023 024 Immunizations Immunization Administration Dates Next Due Influenza, Quadrivalent, Spl it, Preservative Free, Intramuscular 06/16/2018,06/15/2018 Influenza, Trivalent, IM (MDV) 06/27/2014,2011 Influenza, Unspecified 05/29/2020 ZOSTER Recombinant 04/17/2022,02/07/2022 Social History Tobacco Use Types Packs/Day Years Used Date Smoking Tobacco: Former Smokeless Tobacco: Never Tobacco Cessation:Counseling Given: Not Answered Alcohol Use Standard Drinks/Week Comments Not Currently 0 (1 standard drink = 0.6 oz pur e alcohol) Personal Safety Answer Date Recorded Getting School Help Needed Not on file 08/17 Sex and Gender Information Value Date Recorded Sex Assigned at Not on file Legal Sex Male 8:36 AM CONSULTING PSYCHOLOGIST Gender Identity Not on file Sexual Orientation Not on file Last Filed Vital Signs Vital Sign Reading Time Taken Comments Blood Pressure 123/79 11/09/2023 1:49 PM CDT Pulse 90 11/09/2023 1:49 PM CDT Temperature 37 C (98.6 F) 02/15/2019 12:28 PM CDT Respiratory Rate 16 02/15/2019 4:57 PM CDT Oxygen Saturation 98% 02/15/2019 4:57 PM CDT Inhaled Oxygen Concentration - - Weight 113.4 kg (250 lb) 11/09/2023 1:49 PM CDT Height 182.9 cm (6') 11/09/2023 1:49 PM CDT Body Mass Index 33.91 11/09/2023 1:49 PM CDT Plan of Treatment Not on file Procedures Procedure Name Priority Date/Time Associated Diagnosis Comments CTA ABDOMINAL AORTA AND BILATERAL ILIOFEMORAL RUNOFF Schedule Routine, Read Routine (OP Routine) 11/03/2023 12:59 PM CONSULTING PSYCHOLOGIST Popliteal artery aneurysm Atherosclerosis of [place] artery of both lower extremities with intermittent claudication from Last 3 Months or Most Recently Relevant to Health Maintenance Results * CTA Abdominal Aorta And Bilateral Iliofemoral Runoff (11/03/2023 12:59 PM CONSULTING PSYCHOLOGIST) Anatomical Region Laterality Modality Body Bilateral Computed Tomogra phy 11/07/2023 5:12 AM CDT Narrative 11/07/2023 5:30 AM CDT EXAM DESCRIPTION: CTA ABDOMINAL AORTA AND BILATERAL ILIOFEMORAL RUNOFF REASON FOR STUDY: Hx of PEVAR, sac size has increased per DIPLOMATIC INTERPRETER, Kellen Debi aneurysm. Femoral, popliteal calcification. Hx of PEVAR, sac size has increased per DIPLOMATIC INTERPRETER, Kellen Robeson aneurysm. Femoral, popliteal calcification. TECHNIQUE: CTA of the abdominal aorta with bilateral lower extremity runoff was performed without and with intravenous contrast using helical scanning technique. Precontrast and arterial images were obtained of the lower extremities. Images reviewed with soft tissue and bone windows. Reconstructed coronal and sagittal MPR images reviewed. All images stored on PACS. 3D MIP images rendered on scanning unit and reviewed at time of interpretation. Automated exposure control was used as a dose optimization technique for this examination. CONTRAST TYPE/DOSE: 100mL of IOVERSOL 350 MG IODINE/ML INTRAVENOUS SYRINGE injected via intravenous COMPARISON: 11/03/2023 FINDINGS: VASCULATURE: NON-CONTRASTED IMAGING: Extensive peripheral vascular calcifications. ABDOMINAL AORTA: No dissection, aneurysm, intramural hematoma, rupture, or penetrating atherosclerotic ulcer. MESENTERIC/RENAL: No flowing limiting disease. Single bilateral renal arteries. No anatomic variation of the mesenteric vessels. PELVIC VASCULATURE: Common/external iliac arteries: No dissection, aneurysm, intramural hematoma, rupture, or penetrating atherosclerotic ulcer. No flow limiting disease. Internal iliac arteries: No dissection, aneurysm or flow limiting disease. RIGHT LOWER EXTREMITY VASCULATURE: The right common femoral artery is patent with plaque formation producing less than 50% stenosis. The right profunda femoral artery is patent. The right superficial femoral artery demonstrates [id number] plaque formation producing less than 50% stenosis through the adductor canal. The right popliteal artery is patent heavy calcification suggest 50-75% distal stenosis. Runoff vessels demonstrate a heavy calcified plaque with occlusion of the anterior tibial high in the calf. Posterior tibial and peroneal reaches the ankle with the plantar arch opacify normally. LEFT LOWER EXTREMITY VASCULATURE: The left common femoral artery is patent and bifurcates normally. The left superficial femoral artery is patent. Heavy calcified plaque through the adductor canal produces at least 50% stenosis. Additional calcification through the popliteal obscures detail with regions of at least 75% stenosis through the proximal segment. Distally poor opacification limits visualization of severe stenosis suggested. The left trifurcation vessels are heavily calcified with poor visualization distally. ABDOMEN/PELVIS: LOWER CHEST: No significant pulmonary abnormalities. No effusion. LIVER: Normal size. No identified cystic or solid masses. No cysts. GALLBLADDER: No stones identified. No wall thickening or inflammatory changes. BILE DUCTS: No intrahepatic or extrahepatic ductal dilatation. SPLEEN: Normal size. No focal lesions. PANCREAS: No identified cystic or solid masses. No significant calcifications. No adjacent inflammation or peripancreatic fluid collections. Pancreatic duct not dilated. ADRENALS: 1.6 cm low-density nodular lesion left adrenal suggesting benign process. KIDNEYS/URINARY TRACT: Right kidney demonstrates a 1.0 cm pelvic stone without hydronephrosis. No hydroureter. Normal bladder. GI: No dilated bowel loops. No obvious wall thickening. Normal appendix. No significant diverticular disease. PERITONEUM: No ascites or free air. RETROPERITONEUM: No mass or adenopathy. REPRODUCTIVE: No significant abnormality. MUSCULOSKELETAL: The left popliteal fossa demonstrates a bilobed low-density fluid collection, its largest component measures 2.7 x 1.7 cm along the medial border of the gastrocnemius and is most suggestive of a Alexander cyst. No contrast enhancement on arterial phase or delayed phase images in this region to suggest a vascular in nature though please correlate clinically. Ultrasound could confirm. OTHER: No other abnormality. IMPRESSION: No aortoiliac inflow stenosis to the lower extremities bilaterally. Right leg demonstrates [id number] stenosis through the adductor canal with additional 50-75% stenosis of the popliteal artery. 2 vessel distal runoff with the plantar arch opacified. Left leg demonstrates moderate to severe stenosis through the adductor canal and through the popliteal artery with poor visualization of the trifurcation vessels. Bilobed low-density fluid collection in the popliteal fossa is most suggestive of a Alexander cyst. Ultrasound could confirm. 3 cm nonobstructive right renal pelvic stone. 3 cm low-density nodular lesion left adrenal likely benign. THIS IS AN ELECTRONICALLY VERIFIED FINAL REPORT 11/07/2023 5:30 AM - Electronically signed by Chance SANTIAGO T: Report ID: [id number] Reading Location: [place] [address] Procedure Note Chance Mckinley MD - 11/07/2023 EXAM DESCRIPTION: CTA ABDOMINAL AORTA AND BILATERAL ILIOFEMORAL RUNOFF REASON FOR STUDY: Hx of PEVAR, sac size has increased per DIPLOMATIC INTERPRETER, Kellen Debi aneurysm. Femoral, popliteal calcification. Hx of PEVAR, sac size has increased per DIPLOMATIC INTERPRETER, Kellen Robeson aneurysm. Femoral, popliteal calcification. TECHNIQUE: CTA of the abdominal aorta with bilateral lower extremityrunoff was performed without and with intravenous contrast using helicalscanning technique. Precontrast and arterial images were obtained of the lower extremities. Images reviewed with soft tissue and bone windows. Reconstructed coronal and sagittal MPR images reviewed. All images storedon PACS. 3D MIP images rendered on scanning unit and reviewed at time of interpretation. Automated exposure control was used as a doseoptimization technique for this examination. CONTRAST TYPE/DOSE: 100mL of IOVERSOL 350 MG IODINE/ML INTRAVENOUSSYRINGE injected via intravenous COMPARISON: 11/03/2023 FINDINGS: VASCULATURE: NON-CONTRASTED IMAGING: Extensive peripheral vascular calcifications. ABDOMINAL AORTA: No dissection, aneurysm, intramural hematoma, rupture,or penetrating atherosclerotic ulcer. MESENTERIC/RENAL: No flowing limiting disease. Single bilateral renal arteries. No anatomic variation of the mesenteric vessels. PELVIC VASCULATURE: Common/external iliac arteries: No dissection, aneurysm, intramural hematoma, rupture, or penetrating atherosclerotic ulcer. No flow limiting disease. Internal iliac arteries: No dissection, aneurysm or flow limitingdisease. RIGHT LOWER EXTREMITY VASCULATURE: The right common femoral artery is patent with plaque formation producingless than 50% stenosis. The right profunda femoral artery is patent. Theright superficial femoral artery demonstrates kzbh-[id number] plaque formation producing less than 50% stenosis through the adductor canal. The right popliteal artery is patent heavy calcification suggest 50-75% distalstenosis. Runoff vessels demonstrate a heavy calcified plaque with occlusion of the anterior tibial high in the calf. Posterior tibial and peroneal reachesthe ankle with the plantar arch opacify normally. LEFT LOWER EXTREMITY VASCULATURE: The left common femoral artery is patent and bifurcates normally. Theleft superficial femoral artery is patent. Heavy calcified plaque through the adductor canal produces at least 50% stenosis. Additional calcification through the popliteal obscures detail with regions of at least 75%stenosis through the proximal segment. Distally poor opacification limits visualization of severe stenosis suggested. The left trifurcation vesselsare heavily calcified with poor visualization distally. ABDOMEN/PELVIS: LOWER CHEST: No significant pulmonary abnormalities. No effusion. LIVER: Normal size. No identified cystic or solid masses. No cysts. GALLBLADDER: No stones identified. No wall thickening or inflammatory changes. BILE DUCTS: No intrahepatic or extrahepatic ductal dilatation. SPLEEN: Normal size. No focal lesions. PANCREAS: No identified cystic or solid masses. No significant calcifications. No adjacent inflammation or peripancreatic fluidcollections. Pancreatic duct not dilated. ADRENALS: 1.6 cm low-density nodular lesion left adrenal suggestingbenign process. KIDNEYS/URINARY TRACT: Right kidney demonstrates a 1.0 cm pelvic stone without hydronephrosis.No hydroureter. Normal bladder. GI: No dilated bowel loops. No obvious wall thickening. Normalappendix. No significant diverticular disease. PERITONEUM: No ascites or free air. RETROPERITONEUM: No mass or adenopathy. REPRODUCTIVE: No significant abnormality. MUSCULOSKELETAL: The left popliteal fossa demonstrates a bilobedlow-density fluid collection, its largest component measures 2.7 x 1.7 cm along themedial border of the gastrocnemius and is most suggestive of a Alexander cyst. No contrast enhancement on arterial phase or delayed phase images in thisregion to suggest a vascular in nature though please correlate clinically. Ultrasound could confirm. OTHER: No other abnormality. IMPRESSION: No aortoiliac inflow stenosis to the lower extremities bilaterally. Right leg demonstrates dnyz-mi-ajccjmrg stenosis through the adductorcanal with additional 50-75% stenosis of the popliteal artery. 2 vessel distal runoff with the plantar arch opacified. Left leg demonstrates moderate to severe stenosis through the adductorcanal and through the popliteal artery with poor visualization of thetrifurcation vessels. Bilobed low-density fluid collection in the popliteal fossa is most suggestive of a Alexander cyst. Ultrasound could confirm. 3 cm nonobstructive right renal pelvic stone. 3 cm low-density nodular lesion left adrenal likely benign. THIS IS AN ELECTRONICALLY VERIFIED FINAL REPORT 11/07/2023 5:30 AM - Electronically signed by Chance Mckinley M.D. RB T: Report ID: [id number] Reading Location: [place] [address] Michael Lewis MD IMG CT PROCEDURES Final Re sult from Last 3 Months or Most Recently Relevant to Health Maintenance Insurance [employer] [facility] ACCESS CHOICE Care Teams Manager Play Relationship Specialty Start Date End Date Michael Torres MD [address] [place] [address] PCP - General Family Medicine 09/09/22 Michael Lewis MD [address] [facility] [address] [address] Surgeon Vascular Surgery 09/24/22
--- OUTSIDE RECORDS SUMMARY | 2024-12-31 16:29 | XMS_ITS | Clinical Summary ---
Author Organization [facility] Address [address] [facility] [place] [address] Care Team Providers Care Powerhouse Mechanic Supervisor Name Role Phone Michael Torres MD Primary Care Provider + Source Comments [facility],non-owned Affiliates and Associated Physician Practices is amultiple site organization consisting of ambulatory clinics and hospital sitesin [place], [place], [place] and [place]. This disclosure is being madepursuant to the Care Everywhere program and may not contain all information available regarding this patient. Last updated 18.[facility] Allergies Active Allergy Reactions Criticality Noted Date Comments Neomycin Rash,Itching Medium 08/14/2020 Medications * Be aware that medications may not be up to date on this document. Alwaysverify current medications with the patient. JANUVIA 100 MG tablet Take 1 (one) tablet by mouth once daily 08/12/2020 Active simvastatin (ZOCOR) 20 MG tablet Take 1 (one) tablet by mouth once daily 06/17/2020 Active metFORMIN ER 24hr (GLUCOPHAGE XR) 500 MG tablet Take 4 (four) tablets by mouth once daily 05/23/2020 Active cyanocobalamin (VITAMIN B-12) 1000 MCG tablet Take 1 (one) tablet by mouth once daily 01/31/2020 Active ONETOUCH ULTRA test strip Use 1 (one) strip as directed 08/08/2020 Active Calcium Carb-Cholecalci ferol (CALTRATE 600+D3 PO) Take 1 tablet by mouth once daily Active glimepiride (AMARYL) 1 MG tablet Take 1 (one) tablet by mouth once daily 03/14/2021 Active sildenafil (REVATIO) 20 MG tablet Take 1 (one) tablet by mouth once daily as needed 01/13/2022 Active baclofen (Lioresal) 10 MG tablet Take 1 (one) tablet by mouth 3 times daily 11/18/2022 Active Rinvoq 15 MG tablet Take 2 (two) tablets by mouth once daily 11/24/2022 Active meloxicam (Mobic) 15 MG tablet Take 1 (one) tablet by mouth once daily 08/26/2022 Active leflunomide (Arava) 10 MG tablet Take 1 (one) tablet by mouth once daily 11/09/2022 Active indomethacin (Indocin) 50 MG capsule Take 1 (one) capsule by mouth 3 times daily 09/24/2022 Active hydroxychloroqu ine (Plaquenil) 200 MG tablet Take 2 (two) tablets by mouth once daily 12/13/2022 Active gabapentin (Neurontin) 300 MG capsule Take 2 (two) capsules by mouth 3 times daily 12/14/2022 Active Active Problems Problem Noted Date Diagnosed Date Inguinal hernia 03/20/2010 Immunizations Immunization Administration Dates Next Due Linkfluence primary monoval ent 12+ yr 0.3mL Purple cap 06/14/2021,11/18/2020,10/28/2020 INFLUENZA VACCINE 05/29/2020 Family History Medical History Relation Name Comments Diabetes; unknown type Brother Diabetes; unknown type Mother Relation Name Status Comments Brother Mother Social History Tobacco Use Types Packs/Day Years Used Date Smoking Tobacco: Former Cigarettes 1 25 0 09/24/1984 - 09/24/2009 Smokeless Tobacco: Never Tobacco Cessation:Counseling Given: Not Answered Alcohol Use Standard Drinks/Week Comments Yes 0 (1 standard drink = 0.6 oz pur e alcohol) a few beers a month AUDIT-C Answer Date Recorded Q1: How often do you have a drink containing alc ohol? Never 09/22/2021 Q2: How many drinks containi ng alcohol do you have on a typical day when you are drinking? 1 or 2 09/22/2021 Q3: How often do you have six or more drinks on one occasion? Never 09/22/2021 PHQ-2 Answer Date Recorded PHQ2 TOTAL SCORE 0 04/12/2022 Sex and Gender Information Value Date Recorded Sex Assigned at Male 09/18/2021 1:11 PM METERS SUPERINTENDENT Legal Sex Male 6:24 AM METERS SUPERINTENDENT Gender Identity Not on file Sexual Orientation Not on file Last Filed Vital Signs Vital Sign Reading Time Taken Comments Blood Pressure 144/86 12/27/2022 2:05 PM CDT Pulse 86 12/27/2022 2:05 PM CDT Temperature 36.3 C (97.3 F) 12/27/2022 2:05 PM CDT Respiratory Rate 16 09/22/2021 1:10 PM METERS SUPERINTENDENT Oxygen Saturation 96% 12/27/2022 2:05 PM CDT Inhaled Oxygen Concentration - - Weight 102.5 kg (226 lb) 12/27/2022 2:05 PM CDT Height 182.9 cm (6') 12/27/2022 2:05 PM CDT Body Mass Index 30.65 12/27/2022 2:05 PM CDT Plan of Treatment Health Maintenance Due Date Last Done Comments COLOGUARD (AGES 45-75) - COLON CA SCREENING 1959 COLON MONITORING 1959 COLONOSCOPY - COLON CA SCREENING 1959 CT COLONOGRAPHY - COLON CA SCREENING 1959 Colorectal Cancer Screening 1959 FIT - COLON CA SCREENING 1959 FLEX SIG - COLON CA SCREENING 1959 HIV SCREENING 11/01/1974 HEPATITIS C SCREENING 10/28/1977 DTAP/TDAP/TD VACCINES (1 - Tdap) 11/01/1978 LUNG CANCER SCREENING 11/01/2009 PNEUMOCOCCAL VACCINE 50+ (1 of 1 - PCV) 11/01/2009 ZOSTER VACCINE (1 of 2) 11/01/2009 COVID-19 VACCINE (4 - season) 2024 06/14/2021, 11/18/2020, 10/28/2020 DEPRESSION SCREENING 08/29/2024 02/10/2022 AAA SCREENING 11/01/2024 INFLUENZA VACCINE (Season Ended) 2025 05/29/2020, 06/16/2018, 06/15/2018, Additional history exists SCREENING FOR DIABETES 08/25/2025 2, 08/02/2022, 06/02/2022, Additional history exists Respiratory Syncytial Virus (RSV) Vaccine Pt: or over 60 yrs (1 - 1-dose 75+ series) 11/01/2034 HEPATITIS B VACCINE Aged Out No longe r eligible based on patient's age to complete this topic HIB VACCINE Aged Out No longer eligi ble based on patient's age to complete this topic HPV VACCINE Aged Out No longer eligi ble based on patient's age to complete this topic MENINGOCOCCAL (Group B) VACCINE SHARED DECISION-MAKING Aged Out No longer eligible based on patient's age to complete this topic MENINGOCOCCAL GROUPS A/C/Y/W VACCINE Aged Out No longer eligible based on patient's age to complete this topic Medical Devices Implanted Type Area Analysis Intern Device Identifier Shelf Expiration Date Model / Serial / Lot Univers Revers Glenoid Central Screw, Modular 35mm Implanted:Qty: 1 on 09/22/2021 by Thomas Walker MD at [facility] Left: Shoulder [employer] 12/27/2023 AR-9561-35 S / / [id number] Univers Revers Humeral Insert Medium, 39, +6 Implanted:Qty: 1 on 09/22/2021 by Thomas Walker MD at [facility] Left: Shoulder [employer] 01/26/2026 AR-9503M-0 6 / / [id number] Univers Revers Glenosphere, 39, +4 Lateralized/ 24 Implanted:Qty: 1 on 09/22/2021 by Thomas Walker MD at [facility] Left: Shoulder [employer] 04/28/2026 AR-9564-24 39-LAT / / [id number] Bsplt Glnd 24mm Arthx +2mm Shldr Mdlr Implanted:Qty: 1 on 09/22/2021 by Thomas Walker MD at [facility] Left: Shoulder [employer] 05/28/2025 AR-9560-24 -2 / / [id number] Screw 5.5mm 32mm Lck Mdlr Glnd Yvonne Implanted:Qty: 1 on 09/22/2021 by Thomas Walker MD at [facility] Left: Shoulder [employer] 01/26/2026 AR-9563-32 / / [id number] Screw 5.5mm 16mm Lck Yvonne Strl Bone Implanted:Qty: 1 on 09/22/2021 by Thomas Walker MD at [facility] Left: Shoulder [employer] 01/26/2026 AR-9563-16 / / [id number] Screw 5.5mm 24mm Lck Mdlr Glnd Yvonne Implanted:Qty: 1 on 09/22/2021 by Thomas Walker MD at [facility] Left: Shoulder [employer] 09/28/2024 AR-9563-24 / / [id number] Screw 5.5mm 32mm Lck Mdlr Glnd Yvonne Implanted:Qty: 1 on 09/22/2021 by Thomas Walker MD at [facility] Left: Shoulder [employer] 01/26/2026 AR-9563-32 / / [id number] Univers Revers Suturecup 39 Neutral Implanted:Qty: 1 on 09/22/2021 by Thomas Walker MD at [facility] Left: Shoulder [employer] 02/25/2025 AR-9502F-3 9CPC / / [id number] Univers Revers Humeral Stem Size 5, 135 Deg Modular Implanted:Qty: 1 on 09/22/2021 by Thomas Walker MD at [facility] Left: Shoulder [employer] 03/28/2025 AR-9501-05 P / / [id number] Procedures Procedure Name Priority Date/Time Associated Diagnosis Comments COMPREHENSIVE METABOLIC PANEL 08/25/2022 1:58 PM METERS SUPERINTENDENT from Last 3 Months or Most Recently Relevant to Health Maintenance Results * (ABNORMAL) COMPREHENSIVE METABOLIC PANEL (08/25/2022 1:58 PM METERS SUPERINTENDENT) Glucose 268(H) 65 - 99 mg/dL [facility] Comment: Fasting reference interval For someone without known diabetes, a glucose value >125 mg/dL indicates that they may have diabetes and this should be confirmed with a follow-up test. BUN 18 7 - 25 mg/dL [facility] Creatinine 0.88 0.70 - 1.35 mg/dL [facility] eGFR by Cystatin C 97 > OR = 60 mL/min/1. 73m2 [facility] Comment: The eGFR is based on the CKD-EPI 2020 equation. To calculate the new eGFR from a previous Creatinine or Cystatin C result, go to https://www.kidney.org/professionals/ kdoqi/gfr%5Fcalculator BUN/Creatinine Ratio NOT APPLICABLE 6 - 22 (calc) [facility] Sodium 135 135 - 146 mmol/L [facility] Potassium 4.3 3.5 - 5.3 mmol/L [facility] Chloride 98 98 - 110 mmol/L [facility] CO2 29 20 - 32 mmol/L [facility] Calcium 10.0 8.6 - 10.3 mg/dL [facility] Protein Total 7.2 6.1 - 8.1 g/dL [facility] Albumin 4.2 3.6 - 5.1 g/dL [facility] Globulin Total 3.0 1.9 - 3.7 g/dL (calc) [facility] Albumin/Globuli n Ratio 1.4 1.0 - 2.5 (calc) [facility] Bilirubin Total 0.3 0.2 - 1.2 mg/dL [facility] Alkaline Phosphatase 60 35 - 144 U/L [facility] AST 12 10 - 35 U/L [facility] ALT 15 9 - 46 U/L [facility] Comment: Test Performed at: [facility] [id number] [place] [address] VALORIE SADLER DO,MPH 08/25/2022 1:58 PM METERS SUPERINTENDENT 08/25/2022 1:59 PM METERS SUPERINTENDENT Cristóbal Ocampo MD LAB - CHEMISTRY ORDERABLES Final Result [facility] [address] [place] [address] from Last 3 Months or Most Recently Relevant to [place] [address] ANTHKRISSY ANTHEM Care Teams Powerhouse Mechanic Supervisor Relationship Specialty Start Date End Date Michael Torres MD [address] [facility] [address] [place] [address] PCP - General 09/05/18
--- OUTSIDE RECORDS SUMMARY | 2024-12-31 16:29 | XMS_ITS | Encounter Summary ---
Author Organization [facility] Address [address] [place] [address] Care Team Providers Care Line Producer Name Role Phone Michael Torres MD Primary Care Provider + Encounter Details Date Type Department Care Team (Late st Contact Info) Description 12/01/2021 [facility] Outpatient Visit [facility] [address] [place] [address], [facility] [place] [address] Thomas Walker MD [address] [place] [address] [place] [address] Social History Tobacco Use Types Packs/Day Years Used Date Smoking Tobacco: Former Cigarettes 1 25 0 09/24/1984 - 09/24/2009 Smokeless Tobacco: Never Alcohol Use Standard Drinks/Week Comments Yes 0 (1 standard drink = 0.6 oz pur e alcohol) occasionally AUDIT-C Answer Date Recorded Q1: How often do you have a drink containing alc ohol? Never 09/22/2021 Q2: How many drinks containi ng alcohol do you have on a typical day when you are drinking? 1 or 2 09/22/2021 Q3: How often do you have six or more drinks on one occasion? Never 09/22/2021 PHQ-2 Answer Date Recorded PHQ2 TOTAL SCORE 0 10/05/2021 Sex and Gender Information Value Date Recorded Sex Assigned at Male 09/18/2021 1:11 PM MANAGER FUNCTIONAL Legal Sex Male 6:24 AM MANAGER FUNCTIONAL Gender Identity Not on file Sexual Orientation Not on file documented as of this encounter Plan of Treatment Not on file documented as of this encounter Visit Diagnoses Not on filedocumented in this encounter Care Teams Line Producer Relationship Specialty Start Date End Date Michael Torres MD [address] [address] PCP - General 09/05/18 documented as of this encounter
--- OUTSIDE RECORDS SUMMARY | 2024-12-31 16:29 | XMS_ITS | Encounter Summary ---
Author Organization [facility] Address [address] [facility] [place] [address] Care Team Providers Care Senior It Assistant Name Role Phone Michael Torres MD Primary Care Provider + Reason for Visit * Reason Onset Date Comments MEDICATION REFILL 12/10/2020 Encounter Details Date Type Department Care Team (Late st Contact Info) Description 12/10/2020 Refill [facility] [address] [facility], [place] [id number] Becca Wilson MD [facility] [place] [address] MEDICATION REFILL Social History Tobacco Use Types Packs/Day Years Used Date Smoking Tobacco: Never Smokeless Tobacco: Never Alcohol Use Standard Drinks/Week Comments Yes 0 (1 standard drink = 0.6 oz pur e alcohol) occasionally Sex and Gender Information Value Date Recorded Sex Assigned at Male 09/18/2021 1:11 PM COMPOSING ROOM MACHINIST APPRENTICE Legal Sex Male 6:24 AM COMPOSING ROOM MACHINIST APPRENTICE Gender Identity Not on file Sexual Orientation Not on file documented as of this encounter Miscellaneous Notes * Telephone Encounter - Omar Faustin - 12/10/2020 11:21 AM CDT Refill Request Darinel Jenni MAYRA: 09/01/20 NOV scheduled: 03/16/2021 LRF: 09/02/20 Qty Disp: 150 # of refills: 2 Allergies: Allergies Allergen Reactions ??? Neomycin Itching Pended Medication Order: Requested Prescriptions Pending Prescriptions Disp Refills ??? predniSONE (DELTASONE) 1 MG tablet 150 tablet 2 Sig: Take 9 mg daily for 1 month, then taper by 1 mg every 30 days. use in conjunction with 5 mg tablets. documented in this encounter Plan of Treatment Not on file documented as of this encounter Visit Diagnoses Diagnosis High risk medications (not anticoagulants) long-term use- Primary Encounter for long-term (current) use of other medications Arthritis Arthropathy, unspecified, site unspecified Therapeutic drug monitoring Encounter for therapeutic drug monitoring [employer] missile [employer] operations systemic steroid user documented in this encounter Care Teams Senior It Assistant Relationship Specialty Start Date End Date Michael Torres MD [address] [address] PCP - General 09/05/18 documented as of this encounter
--- OUTSIDE RECORDS SUMMARY | 2024-12-31 16:29 | XMS_ITS | Clinical Summary ---
Author Organization [facility] Address [address] [place] [address] Care Team Providers Care Ring Barker Operator Name Role Phone Michael Torres MD Primary Care Prov ider Michael Lewis MD Unavailable [phone] Allergies Active Allergy Reactions Criticality Noted Date [...] evaluation Assessment & Plan (10/06/2023 1:12 PM PRESS BRAKE OPERATOR): Impression: Patient has triphasic waveforms to lower [...] glimeripiride. Assessment & Plan (10/06/2023 1:13 PM PRESS BRAKE OPERATOR): Impression: Chronic and stable. Plan: Continue Januvia metformin and glimerpiride Other hyperlipidemia 10/06/2023 Assessment & Plan (10/06/2023 1:14 PM PRESS BRAKE OPERATOR): Impression: Chronic stable. 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 Patient is currently stable. Plan: Continue Plaquenil Assessment & Plan (10/06/2023 1:15 PM PRESS BRAKE OPERATOR): Impression: Recently diagnosed with rheumatoid arthritis. Plan: Continue Plaquenil Pain in both lower extremities 09/10/2022 Assessment & Plan (10/03/2022 10:01 PM PRESS BRAKE OPERATOR): Edema and pain to his extremities and [...] duplex. Assessment & Plan (09/10/2022 2:24 PM PRESS BRAKE OPERATOR): Patient referred to vascular for concern of [...] 06/27/2014,2011 Influenza, Unspecified 05/29/2020 ZOSTER Recombinant 04/17/2022,02/07/2022 Surgical History Surgery Date Site/Laterality Comments HERNIA REPAIR OTHER SURGICAL HISTORY 08/29/2019 - 08/28/2020 Extraction of renal calculus OTHER SURGICAL HISTORY 08/29/1994 - 08/28/1995 Lumbar surgery, disc OTHER SURGICAL HISTORY 08/29/2011 - 08/28/2012 Rotator cuff surgery Medical History Medical History Date Comments Diabetes mellitus (HCC) Hypercholesteremia Nephrolithiasis RA (rheumatoid arthritis) (HCC) Sleep apnea Family History Medical History Relation Name Comments No Known Problems Father Diabetes Mother Relation Name Status Comments Father Mother Social History Tobacco Use Types Packs/Day [...] on file Legal Sex Male 8:36 AM PRESS BRAKE OPERATOR Gender Identity Not on file Sexual Orientation Not on file Obstetrics History Last Filed Vital Signs Vital Sign Reading [...] 11/09/2023 1:49 PM CDT Plan of Treatment Health Maintenance Due Date Last Done Comments Albumin Creatinine Ratio, Urine 1959 Colon Cancer Screening-Colonoscopy 1959 Depression Screening 1959 Fall Risk Assessment 1959 Hepatitis C Screening 1959 Prostate Cancer Screening-PSA 1959 eGFR 1959 Dilated Eye Exam 1959 Foot Exam 1959 Lipid Panel 1959 DTaP/Tdap/Td Vaccine (1 - Tdap) 11/01/1970 Hepatitis B Screening 11/01/1977 Pneumococcal vaccine 65+ (1 of 2 - PCV) 11/01/1978 Hemoglobin A1C 03/02/2022 09/02/2021 Covid-19 Vaccine (5 - 2023-2 5 season) 2024 06/24/2022, 06/14/2021, 11/18/2020, Additional history exists Abdominal Aortic Aneurysm (A AA) Screen 11/01/2024 11/03/2023 Well Visit 65+ 11/01/2024 Influenza Vaccine (Season Ended) 2025 05/29/2020, 06/16/2018, 06/15/2018, Additional history exists Zoster Vaccine Completed 04/17/2022, 02/07/2022 Procedures Procedure Name Priority Date/Time Associated Diagnosis Comments CTA ABDOMINAL AORTA AND BILATERAL ILIOFEMORAL RUNOFF Schedule Routine, Read Routine (OP Routine) 11/03/2023 12:59 PM PRESS BRAKE OPERATOR Popliteal artery aneurysm Atherosclerosis of [place] artery of both lower extremities with intermittent claudication from Last 3 Months or Most Recently Relevant to Health Maintenance Results * CTA Abdominal Aorta And Bilateral Iliofemoral Runoff (11/03/2023 12:59 PM PRESS BRAKE OPERATOR) Anatomical Region Laterality Modality Body Bilateral Computed Tomogra phy 11/07/2023 5:12 AM CDT Narrative 11/07/2023 5:30 AM CDT EXAM DESCRIPTION: CTA ABDOMINAL AORTA AND BILATERAL ILIOFEMORAL RUNOFF REASON FOR STUDY: Hx of PEVAR, sac size has increased per PRIMER PRESS OPERATOR, Kellen Hodgeman aneurysm. Femoral, popliteal calcification. Hx of PEVAR, sac size has increased per PRIMER PRESS OPERATOR, Kellen Hodgeman aneurysm. Femoral, popliteal calcification. TECHNIQUE: CTA of [...] patent. The right superficial femoral artery demonstrates jvmw-sn-seytvlmd plaque formation producing less than 50% stenosis [...] the lower extremities bilaterally. Right leg demonstrates odrc-cs-egucrsyp stenosis through the adductor canal with additional [...] signed by Chance SANTIAGO T: Report ID: [id number] Reading Location: [id number] Procedure Note Chance Mckinley MD - 11/07/2023 EXAM DESCRIPTION: CTA ABDOMINAL AORTA AND BILATERAL ILIOFEMORAL RUNOFF REASON FOR STUDY: Hx of PEVAR, sac size has increased per PRIMER PRESS OPERATOR, Kellen Hodgeman aneurysm. Femoral, popliteal calcification. Hx of PEVAR, sac size has increased per PRIMER PRESS OPERATOR, Kellen Hodgeman aneurysm. Femoral, popliteal calcification. TECHNIQUE: CTA of [...] is patent. Theright superficial femoral artery demonstrates wivl-od-lwvpjgan plaque formation producing less than 50% stenosis [...] the lower extremities bilaterally. Right leg demonstrates fjkp-zb-kmsagipv stenosis through the adductorcanal with additional 50-75% [...] Chance Mckinley M.D. RB T: Report ID: [id number] Reading Location: [place] [address] Michael Lewis MD IMG CT PROCEDURES Final Re sult from Last 3 Months or Most Recently Relevant to Health Maintenance Insurance ANTHEM ACCESS CHOICE ANTHEM ACCESS CHOICE ANTHEM ACCESS CHOICE Care Teams Ring Barker Operator Relationship Specialty Start Date End Date Michael Torres MD [address] [place] [address] PCP - General Family Medicine 09/09/22 Michael Lewis MD [address] [facility] [address] [address] Surgeon Vascular Surgery 09/24/22
[2024-12-31 16:57] LABS: Add Urine Microscopic? NO; Appearance Urine Clear (Clear); Bilirubin Urine Negative (Negative); Blood Urine Negative (Negative); Color Urine Yellow (Yellow); Glucose Urine UA Negative (Negative); Ketones Urine Negative (Negative); Leukocyte Esterase Ur Negative LEU/UL (Negative); Nitrate Urine Negative (Negative); Protein Urine Negative (Negative); Specific Grav Ur 1.011 (1.001-1.035); Urobilinogen Urine 0.2 mg/dL (<2.0); pH Urine 5.5 (5.0-9.0)
[2024-12-31 18:27] LABS: Albumin Level 4.5 g/dL (3.5-5.1); Anion Gap 9 mmol/L (4-12); Blood Urea Nitrogen 21 mg/dL (9-20); Carbon Dioxide 28 mmol/L (22-30); Chloride 100 mmol/L (98-107); Estimated Glomerular Filt Rate > 60; Glucose 111 mg/dL (65-110); Potassium 3.9 mmol/L (3.4-5.0); Sodium 137 mmol/L (137-145); Uric Acid 4.2 mg/dL (3.5-8.5)
== END 2024-12-31 15:58 | disposition home or self-care (01) ==
LOC: ANHLAB 15:58
PROVIDERS: PCP Family Medicine Adolescent Medicine; Visit Provider Internal Medicine Nephrology
DX: N20.0 Calculus of kidney (principal)
CPT/HCPCS: 36415; 80069; 81003; 84550

== ENCOUNTER 2025-01-23 16:12 | Outpatient (CLI) | payer BC, SELFPAY ==
--- NOTE | ~2025-01-23 | CT_ITS ---
Non-contrast CT scan of the Abdomen and Pelvis Clinical indication: Kidney stone Technique: 2.5 mm axial scans were obtained through the abdomen and pelvis without intravenous or or al contrast. Dose reduction technique was used on this scan by utilizing automated exposure control a nd iterative reconstruction technique. The dose-length product (DLP) was 420.81 mGy-cm. COMPARISON: 05/11/2024 Findings: Images through the lung bases reveal no abnormalities. Punctate nonobstructing renal stone present. No left renal stone. No ureteral stone or hydronephrosis on either side. The liver, spleen, pancreas, gallbladder, and right adrenal gland appear normal. Stable low-density l eft adrenal nodule is compatible with adenoma. There is no aortic aneurysm. There is no evidence of bowel obstruction. Questionable mild epiploic appendagitis or fat necrosis ad jacent to the distal descending colon. Images through the pelvis were performed. There is no evidence of ascites or lymphadenopathy. Urinary bladder unremarkable. No pelvic mass seen. Impression: Punctate nonobstructing right renal stone. Questionable mild epiploic appendagitis or fat necrosis adjacent to the distal descending colon. Stable left adrenal adenoma. Reviewed, dictated and finalized at [facility]. Impression: Punctate nonobstructing right renal stone. Questionable mild epiploic appendagitis or fat necrosis adjacent to the distal descending colon. Stable left adrenal adenoma.
--- OUTSIDE RECORDS SUMMARY | 2025-01-23 16:16 | XMS_ITS | Encounter Summary ---
Author Organization [facility] Address [address] [facility] [place] [address] Care Team Providers Care Missile Inspector Name Role Phone Michael Torres MD Primary Care Provider + Reason for Visit * Reason Onset Date Comments MEDICATION REFILL 12/10/2020 Encounter Details Date Type Department Care Team (Late st Contact Info) Description 12/10/2020 Refill [facility] [address] [facility], [facility] [place] [id number] Becca Wilson MD [facility] [place] [address] MEDICATION REFILL Social History Tobacco Use Types Packs/Day Years Used Date Smoking Tobacco: Never Smokeless Tobacco: Never Alcohol Use Standard Drinks/Week Comments Yes 0 (1 standard drink = 0.6 oz pur e alcohol) occasionally Sex and Gender Information Value Date Recorded Sex Assigned at Male 09/18/2021 1:11 PM DB2 DEVELOPER Legal Sex Male 6:24 AM DB2 DEVELOPER Gender Identity Not on file Sexual Orientation [...] drug monitoring Encounter for therapeutic drug monitoring senior care systemic steroid user documented in this encounter Care Teams Missile Inspector Relationship Specialty Start Date End Date Michael Torres MD [address] [address] PCP - General 09/05/18 documented as of this encounter
--- OUTSIDE RECORDS SUMMARY | 2025-01-23 16:16 | XMS_ITS | Encounter Summary ---
Author Organization [facility] Health Address [address] [place] [address] Care Team Providers Care Rn Mobile Name Role Phone Michael Torres MD Primary Care Provider + Encounter Details Date Type Department Care Team (Late st Contact Info) Description 12/01/2021 [facility] Outpatient Visit [facility] [address] [place] [address], [facility] [place] [address] Thomas Walker MD [address] [place] [address] [place] [address] Social History Tobacco Use Types [...] Sex Assigned at Male 09/18/2021 1:11 PM SOCIAL MEDIA EXECUTIVE Legal Sex Male 6:24 AM SOCIAL MEDIA EXECUTIVE Gender Identity Not on file Sexual Orientation Not on file documented as of this encounter Plan of Treatment Not on file documented as of this encounter Visit Diagnoses Not on filedocumented in this encounter Care Teams Rn Mobile Relationship Specialty Start Date End Date Michael Torres MD [address] [address] PCP - General 09/05/18 documented as of this encounter
--- OUTSIDE RECORDS SUMMARY | 2025-01-23 16:16 | XMS_ITS | Clinical Summary ---
Author Organization [facility] al Address [address] [place] [address] Care Team Providers Care Piano Maker Name Role Phone Michael Torres MD Primary Care Prov ider Michael Lewis MD Unavailable [phone] Allergies Active Allergy Reactions Criticality Noted Date [...] evaluation Assessment & Plan (10/06/2023 1:12 PM CLERICAL AIDE TEACHER): Impression: Patient has triphasic waveforms to lower [...] glimeripiride. Assessment & Plan (10/06/2023 1:13 PM CLERICAL AIDE TEACHER): Impression: Chronic and stable. Plan: Continue Januvia metformin and glimerpiride Other hyperlipidemia 10/06/2023 Assessment & Plan (10/06/2023 1:14 PM CLERICAL AIDE TEACHER): Impression: Chronic stable. 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 Patient is currently stable. Plan: Continue Plaquenil Assessment & Plan (10/06/2023 1:15 PM CLERICAL AIDE TEACHER): Impression: Recently diagnosed with rheumatoid arthritis. Plan: Continue Plaquenil Pain in both lower extremities 09/10/2022 Assessment & Plan (10/03/2022 10:01 PM CLERICAL AIDE TEACHER): Edema and pain to his extremities and [...] duplex. Assessment & Plan (09/10/2022 2:24 PM CLERICAL AIDE TEACHER): Patient referred to vascular for concern of [...] on file Legal Sex Male 8:36 AM CLERICAL AIDE TEACHER Gender Identity Not on file Sexual Orientation [...] Read Routine (OP Routine) 11/03/2023 12:59 PM CLERICAL AIDE TEACHER Popliteal artery aneurysm Atherosclerosis of [place] artery of both lower extremities with intermittent claudication from Last 3 Months or Most Recently Relevant to Health Maintenance Results * CTA Abdominal Aorta And Bilateral Iliofemoral Runoff (11/03/2023 12:59 PM CLERICAL AIDE TEACHER) Anatomical Region Laterality Modality Body Bilateral Computed Tomogra phy 11/07/2023 5:12 AM CDT Narrative 11/07/2023 5:30 AM CDT EXAM DESCRIPTION: CTA ABDOMINAL AORTA AND BILATERAL ILIOFEMORAL RUNOFF REASON FOR STUDY: Hx of PEVAR, sac size has increased per CHRONOMETER REPAIRER, Kellen Debi aneurysm. Femoral, popliteal calcification. Hx of PEVAR, sac size has increased per CHRONOMETER REPAIRER, Kellen [place] aneurysm. Femoral, popliteal calcification. TECHNIQUE: CTA of [...] patent. The right superficial femoral artery demonstrates sexb-ud-sunpcflk plaque formation producing less than 50% stenosis [...] the lower extremities bilaterally. Right leg demonstrates wwrl-xh-lanegqxw stenosis through the adductor canal with additional [...] signed by Chance SANTIAGO T: Report ID: [id number] Reading Location: [id number] Procedure Note Chance Mckinley MD - 11/07/2023 EXAM DESCRIPTION: CTA ABDOMINAL AORTA AND BILATERAL ILIOFEMORAL RUNOFF REASON FOR STUDY: Hx of PEVAR, sac size has increased per CHRONOMETER REPAIRER, Kellen [place] aneurysm. Femoral, popliteal calcification. Hx of PEVAR, sac size has increased per CHRONOMETER REPAIRER, Kellen [place] aneurysm. Femoral, popliteal calcification. TECHNIQUE: CTA of [...] is patent. Theright superficial femoral artery demonstrates nivj-mg-auwouyjw plaque formation producing less than 50% stenosis [...] the lower extremities bilaterally. Right leg demonstrates eqvj-qw-uexaybxs stenosis through the adductorcanal with additional 50-75% [...] Chance Mckinley M.D. RB T: Report ID: [id number] Reading Location: [place] [address] Michael Lewis MD IMG CT PROCEDURES Final Re sult from Last 3 Months or Most Recently Relevant to Health Maintenance Insurance ANTHEM ACCESS CHOICE ANTHEM ACCESS CHOICE ANTHEM ACCESS CHOICE Care Teams Piano Maker Relationship Specialty Start Date End Date Michael Torres MD [address] [place] [address] PCP - General Family Medicine 09/09/22 Michael Lewis MD [address] [place] [address] Surgeon Vascular Surgery 09/24/22
--- OUTSIDE RECORDS SUMMARY | 2025-01-23 16:16 | XMS_ITS | Clinical Summary ---
Author Organization [facility] Address [address] [place] [address] Care Team Providers Care Channel Executive Name Role Phone Michael Torres MD Primary Care Provider + Source Comments [facility],non-owned Affiliates and Associated Physician Practices is amultiple site organization consisting of ambulatory clinics and hospital sitesin [place], [place], [place] and [place]. This disclosure is being madepursuant to the Care Everywhere program and may not contain all information available regarding this patient. Last updated 18.[facility] Allergies Active Allergy Reactions Criticality Noted Date [...] 03/20/2010 Immunizations Immunization Administration Dates Next Due Breathometer primary monoval ent 12+ yr 0.3mL Purple [...] Sex Assigned at Male 09/18/2021 1:11 PM CHOKE REAMER Legal Sex Male 6:24 AM CHOKE REAMER Gender Identity Not on file Sexual Orientation Not on file Last Filed Vital Signs Vital Sign Reading Time Taken Comments Blood Pressure 144/86 12/27/2022 2:05 PM CDT Pulse 86 12/27/2022 2:05 PM CDT Temperature 36.3 C (97.3 F) 12/27/2022 2:05 PM CDT Respiratory Rate 16 09/22/2021 1:10 PM CHOKE REAMER Oxygen Saturation 96% 12/27/2022 2:05 PM CDT [...] this topic Medical Devices Implanted Type Area Meat Clerk Device Identifier Shelf Expiration Date Model / Serial / Lot Univers Revers Glenoid Central Screw, Modular 35mm Implanted:Qty: 1 on 09/22/2021 by Thomas Walker MD at [facility] Left: Shoulder [employer] 12/27/2023 AR-9561-35 S / / [id number] Univers Revers Humeral Insert Medium, 39, +6 Implanted:Qty: 1 on 09/22/2021 by Thomas Walker MD at [facility] Left: Shoulder [employer] 01/26/2026 AR-9503M-0 6 / / [id number] Univers Revers Glenosphere, 39, +4 Lateralized/ 24 Implanted:Qty: 1 on 09/22/2021 by [place] Walker MD at [facility] Left: Shoulder [employer] 04/28/2026 AR-9564-24 39-LAT / / [id number] Bsplt Glnd 24mm Arthx +2mm Shldr Mdlr Implanted:Qty: 1 on 09/22/2021 by Thomas Walker MD at [facility] Left: Shoulder [employer] 05/28/2025 AR-9560-24 -2 / / [id number] Screw 5.5mm 32mm Lck Mdlr Glnd Yvonne Implanted:Qty: 1 on 09/22/2021 by Thomas Walker MD at [facility] Left: Shoulder [employer] 01/26/2026 AR-9563-32 / / [id number] Screw 5.5mm 16mm Lck Yvonne Strl Bone Implanted:Qty: 1 on 09/22/2021 by [place] Walker MD at [facility] Left: Shoulder [employer] 01/26/2026 AR-9563-16 / / [id number] Screw 5.5mm 24mm Lck Mdlr Glnd Yvonne Implanted:Qty: 1 on 09/22/2021 by Thomas Walker MD at [facility] Left: Shoulder [employer] 09/28/2024 AR-9563-24 / / [id number] Screw 5.5mm 32mm Lck Mdlr Glnd Yvonne Implanted:Qty: 1 on 09/22/2021 by Thomas Walker MD at [facility] Left: Shoulder [employer] 01/26/2026 AR-9563-32 / / [id number] Univers Revers Suturecup 39 Neutral Implanted:Qty: 1 on 09/22/2021 by Thomas Walker MD at [facility] Left: Shoulder [employer] 02/25/2025 AR-9502F-3 9CPC / / [id number] Univers Revers Humeral Stem Size 5, 135 Deg Modular Implanted:Qty: 1 on 09/22/2021 by Thomas Walker MD at [facility] Left: Shoulder [employer] 03/28/2025 AR-9501-05 P / / [id number] Procedures Procedure Name Priority Date/Time Associated Diagnosis Comments COMPREHENSIVE METABOLIC PANEL 08/25/2022 1:58 PM CHOKE REAMER from Last 3 Months or Most Recently Relevant to Health Maintenance Results * (ABNORMAL) COMPREHENSIVE METABOLIC PANEL (08/25/2022 1:58 PM CHOKE REAMER) Glucose 268(H) 65 - 99 mg/dL [facility] [...] 46 U/L [facility] Comment: Test Performed at: [facility] [address] [place] [address] VALORIE SADLER DO,MPH 08/25/2022 1:58 PM CHOKE REAMER 08/25/2022 1:59 PM CHOKE REAMER Cristóbal Ocampo MD LAB - CHEMISTRY ORDERABLES Final Result [facility] [address] [place] [address] from Last 3 Months or Most Recently Relevant to [place] [address] ANTHKRISSY ANTHEM Care Teams Channel Executive Relationship Specialty Start Date End Date Michael Torres MD [address] [facility] [address] [place] [address] PCP - General 09/05/18
--- OUTSIDE RECORDS SUMMARY | 2025-01-23 16:16 | XMS_ITS | Referral Summary ---
Author Organization [facility] al Address [address] [place] [address] Care Team Providers Care Data Miner Name Role Phone Michael Torres MD Primary Care Prov ider Michael Lewis MD Unavailable [phone] Allergies Active Allergy Reactions Criticality Noted Date [...] evaluation Assessment & Plan (10/06/2023 1:12 PM LABORATORY ADMINISTRATIVE DIRECTOR): Impression: Patient has triphasic waveforms to lower [...] glimeripiride. Assessment & Plan (10/06/2023 1:13 PM LABORATORY ADMINISTRATIVE DIRECTOR): Impression: Chronic and stable. Plan: Continue Januvia metformin and glimerpiride Other hyperlipidemia 10/06/2023 Assessment & Plan (10/06/2023 1:14 PM LABORATORY ADMINISTRATIVE DIRECTOR): Impression: Chronic stable. 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 Patient is currently stable. Plan: Continue Plaquenil Assessment & Plan (10/06/2023 1:15 PM LABORATORY ADMINISTRATIVE DIRECTOR): Impression: Recently diagnosed with rheumatoid arthritis. Plan: Continue Plaquenil Pain in both lower extremities 09/10/2022 Assessment & Plan (10/03/2022 10:01 PM LABORATORY ADMINISTRATIVE DIRECTOR): Edema and pain to his extremities and [...] duplex. Assessment & Plan (09/10/2022 2:24 PM LABORATORY ADMINISTRATIVE DIRECTOR): Patient referred to vascular for concern of [...] on file Legal Sex Male 8:36 AM LABORATORY ADMINISTRATIVE DIRECTOR Gender Identity Not on file Sexual Orientation [...] Read Routine (OP Routine) 11/03/2023 12:59 PM LABORATORY ADMINISTRATIVE DIRECTOR Popliteal artery aneurysm Atherosclerosis of [place] artery of both lower extremities with intermittent claudication from Last 3 Months or Most Recently Relevant to Health Maintenance Results * CTA Abdominal Aorta And Bilateral Iliofemoral Runoff (11/03/2023 12:59 PM LABORATORY ADMINISTRATIVE DIRECTOR) Anatomical Region Laterality Modality Body Bilateral Computed Tomogra phy 11/07/2023 5:12 AM CDT Narrative 11/07/2023 5:30 AM CDT EXAM DESCRIPTION: CTA ABDOMINAL AORTA AND BILATERAL ILIOFEMORAL RUNOFF REASON FOR STUDY: Hx of PEVAR, sac size has increased per UNEMPLOYMENT SPECIALIST, Kellen Debi aneurysm. Femoral, popliteal calcification. Hx of PEVAR, sac size has increased per UNEMPLOYMENT SPECIALIST, Kellen [place] aneurysm. Femoral, popliteal calcification. TECHNIQUE: CTA of [...] patent. The right superficial femoral artery demonstrates hvox-ww-ljwjjpve plaque formation producing less than 50% stenosis [...] the lower extremities bilaterally. Right leg demonstrates lqbp-ua-dkcsfrob stenosis through the adductor canal with additional [...] signed by Chance SANTIAGO T: Report ID: [id number] Reading Location: [place] [address] Procedure Note Chance Mckinley MD - 11/07/2023 EXAM DESCRIPTION: CTA ABDOMINAL AORTA AND BILATERAL ILIOFEMORAL RUNOFF REASON FOR STUDY: Hx of PEVAR, sac size has increased per UNEMPLOYMENT SPECIALIST, Kellen Debi aneurysm. Femoral, popliteal calcification. Hx of PEVAR, sac size has increased per UNEMPLOYMENT SPECIALIST, Kellen Debi aneurysm. Femoral, popliteal calcification. TECHNIQUE: CTA of [...] is patent. Theright superficial femoral artery demonstrates kdnk-sd-gyxdttka plaque formation producing less than 50% stenosis [...] the lower extremities bilaterally. Right leg demonstrates sblm-ah-qpnfsvsl stenosis through the adductorcanal with additional 50-75% [...] Chance Mckinley M.D. RB T: Report ID: [id number] Reading Location: [place] [address] Michael Lewis MD IMG CT PROCEDURES Final Re sult from Last 3 Months or Most Recently Relevant to Health Maintenance Insurance [employer] Rebel[employer] [facility] ACCESS CHOICE Care Teams Data Miner Relationship Specialty Start Date End Date Michael Torres MD [address] [place] [address] PCP - General Family Medicine 09/09/22 Michael Lewis MD [address] [facility] [address] [place] [address] Surgeon Vascular Surgery 09/24/22
== END 2025-01-23 16:13 | disposition home or self-care (01) ==
PROVIDERS: PCP Family Medicine Adolescent Medicine; Visit Provider Internal Medicine Nephrology
DX: N20.0 Calculus of kidney (principal); D35.02 Benign neoplasm of left adrenal gland
CPT/HCPCS: 74176

== ENCOUNTER 2025-01-30 15:36 | Outpatient (CLI) | payer BC, SELFPAY ==
--- OUTSIDE RECORDS SUMMARY | 2025-01-30 15:40 | XMS_ITS | Clinical Summary ---
Author Organization [facility] al Address [address] [place] [address] Care Team Providers Care Action Finisher Name Role Phone Michael Torres MD Primary Care Prov ider Michael Lewis MD Unavailable [phone] Allergies Active Allergy Reactions Criticality Noted Date [...] evaluation Assessment & Plan (10/06/2023 1:12 PM SALES ARCHITECT): Impression: Patient has triphasic waveforms to lower [...] glimeripiride. Assessment & Plan (10/06/2023 1:13 PM SALES ARCHITECT): Impression: Chronic and stable. Plan: Continue Januvia metformin and glimerpiride Other hyperlipidemia 10/06/2023 Assessment & Plan (10/06/2023 1:14 PM SALES ARCHITECT): Impression: Chronic stable. 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 Patient is currently stable. Plan: Continue Plaquenil Assessment & Plan (10/06/2023 1:15 PM SALES ARCHITECT): Impression: Recently diagnosed with rheumatoid arthritis. Plan: Continue Plaquenil Pain in both lower extremities 09/10/2022 Assessment & Plan (10/03/2022 10:01 PM SALES ARCHITECT): Edema and pain to his extremities and [...] duplex. Assessment & Plan (09/10/2022 2:24 PM SALES ARCHITECT): Patient referred to vascular for concern of [...] on file Legal Sex Male 8:36 AM SALES ARCHITECT Gender Identity Not on file Sexual Orientation [...] Read Routine (OP Routine) 11/03/2023 12:59 PM SALES ARCHITECT Popliteal artery aneurysm Atherosclerosis of [place] artery of both lower extremities with intermittent claudication from Last 3 Months or Most Recently Relevant to Health Maintenance Results * CTA Abdominal Aorta And Bilateral Iliofemoral Runoff (11/03/2023 12:59 PM SALES ARCHITECT) Anatomical Region Laterality Modality Body Bilateral Computed Tomogra phy 11/07/2023 5:12 AM CDT Narrative 11/07/2023 5:30 AM CDT EXAM DESCRIPTION: CTA ABDOMINAL AORTA AND BILATERAL ILIOFEMORAL RUNOFF REASON FOR STUDY: Hx of PEVAR, sac size has increased per MARGIN CLERK, Kellen Debi aneurysm. Femoral, popliteal calcification. Hx of PEVAR, sac size has increased per MARGIN CLERK, Kellen [place] aneurysm. Femoral, popliteal calcification. TECHNIQUE: CTA of [...] patent. The right superficial femoral artery demonstrates iwuh-cl-dafnxxsv plaque formation producing less than 50% stenosis [...] the lower extremities bilaterally. Right leg demonstrates ghtf-vw-bbekebdb stenosis through the adductor canal with additional [...] signed by Chance SANTIAGO T: Report ID: [id number] Reading Location: [id number] Procedure Note Chance Mckinley MD - 11/07/2023 EXAM DESCRIPTION: CTA ABDOMINAL AORTA AND BILATERAL ILIOFEMORAL RUNOFF REASON FOR STUDY: Hx of PEVAR, sac size has increased per MARGIN CLERK, Kellen [place] aneurysm. Femoral, popliteal calcification. Hx of PEVAR, sac size has increased per MARGIN CLERK, Kellen [place] aneurysm. Femoral, popliteal calcification. TECHNIQUE: CTA of [...] is patent. Theright superficial femoral artery demonstrates sbex-kh-urrqewqb plaque formation producing less than 50% stenosis [...] the lower extremities bilaterally. Right leg demonstrates wpvn-ck-hftjpqxz stenosis through the adductorcanal with additional 50-75% [...] Chance Mckinley M.D. RB T: Report ID: [id number] Reading Location: [place] [address] Michael Lewis MD IMG CT PROCEDURES Final Re sult from Last 3 Months or Most Recently Relevant to Health Maintenance Insurance ANTHEM ACCESS CHOICE ANTHEM ACCESS CHOICE ANTHEM ACCESS CHOICE Care Teams Action Finisher Relationship Specialty Start Date End Date Michael Torres MD [address] [place] [address] PCP - General Family Medicine 09/09/22 Michael Lewis MD [address] [facility] [address] [place] [address] Surgeon Vascular Surgery 09/24/22
--- OUTSIDE RECORDS SUMMARY | 2025-01-30 15:40 | XMS_ITS | Encounter Summary ---
Author Organization [facility] Address [address] [place] [address] Care Team Providers Care Rn Acute Dialysis Name Role Phone Michael Torres MD Primary Care Provider + Encounter Details Date Type Department Care Team (Late st Contact Info) Description 12/01/2021 [facility] Outpatient Visit [facility] - Orthopedics [address] [place] [address], [facility] [place] [address] Thomas Walker MD [address] [address] [place] [address] Social History Tobacco Use Types [...] Sex Assigned at Male 09/18/2021 1:11 PM CIRCULATION WORKER Legal Sex Male 6:24 AM CIRCULATION WORKER Gender Identity Not on file Sexual Orientation Not on file documented as of this encounter Plan of Treatment Not on file documented as of this encounter Visit Diagnoses Not on filedocumented in this encounter Care Teams Rn Acute Dialysis Relationship Specialty Start Date End Date Michael Torres MD [address] [address] PCP - General 09/05/18 documented as of this encounter
--- OUTSIDE RECORDS SUMMARY | 2025-01-30 15:40 | XMS_ITS | Clinical Summary ---
Author Organization [facility] Address [address] [facility] [address] Care Team Providers Care Data Entry Clerk Name Role Phone Michael Torres MD Primary Care Provider + Source Comments [facility],non-owned Affiliates and Associated Physician Practices is amultiple site organization consisting of ambulatory clinics and hospital sitesin [place] and [place]. This disclosure is being madepursuant to the Care Everywhere program and may not contain all information available regarding this patient. Last updated 18.[facility] Allergies Active Allergy Reactions Criticality Noted Date [...] 03/20/2010 Immunizations Immunization Administration Dates Next Due [employer] primary monoval ent 12+ yr 0.3mL Purple [...] Sex Assigned at Male 09/18/2021 1:11 PM APPLIED BIOLOGY PROFESSOR Legal Sex Male 6:24 AM APPLIED BIOLOGY PROFESSOR Gender Identity Not on file Sexual Orientation Not on file Last Filed Vital Signs Vital Sign Reading Time Taken Comments Blood Pressure 144/86 12/27/2022 2:05 PM CDT Pulse 86 12/27/2022 2:05 PM CDT Temperature 36.3 C (97.3 F) 12/27/2022 2:05 PM CDT Respiratory Rate 16 09/22/2021 1:10 PM APPLIED BIOLOGY PROFESSOR Oxygen Saturation 96% 12/27/2022 2:05 PM CDT [...] this topic Medical Devices Implanted Type Area Seismic Computer Device Identifier Shelf Expiration Date Model / Serial / Lot Univers Revers Glenoid Central Screw, Modular 35mm Implanted:Qty: 1 on 09/22/2021 by Thomas Walker MD at [facility] Left: Shoulder [employer] 12/27/2023 AR-9561-35 S / / [id number] Univers Revers Humeral Insert Medium, 39, +6 Implanted:Qty: 1 on 09/22/2021 by Thomas Walker MD at [facility] Left: Shoulder [employer] 01/26/2026 AR-9503M-0 6 / / [id number] Univers Revers Glenosphere, 39, +4 Lateralized/ 24 Implanted:Qty: 1 on 09/22/2021 by Thomas Walker MD at [facility] Left: Shoulder [employer] 04/28/2026 AR-9564-24 39-LAT / / [id number] Bsplt Glnd 24mm Arthx +2mm Shldr Mdlr Implanted:Qty: 1 on 09/22/2021 by Thomas Walker MD at [facility] Left: Shoulder [employer] 05/28/2025 AR-9560-24 -2 / / [id number] Screw 5.5mm 32mm Lck Mdlr Glnd Yvonne Implanted:Qty: 1 on 09/22/2021 by Thomas Walker MD at [facility] Left: Shoulder [employer] 01/26/2026 AR-9563-32 / / [id number] Screw 5.5mm 16mm Lck Yvonne Strl Bone Implanted:Qty: 1 on 09/22/2021 by Thomas Walker MD at [facility] Left: Shoulder [employer] 01/26/2026 AR-9563-16 / / [id number] Screw 5.5mm 24mm Lck Mdlr Glnd Yvonne Implanted:Qty: 1 on 09/22/2021 by Thomas Walker MD at [facility] Left: Shoulder [employer] 09/28/2024 AR-9563-24 / / [id number] Screw 5.5mm 32mm Lck Mdlr Glnd Yvonne Implanted:Qty: 1 on 09/22/2021 by Thomas Walker MD at [facility] Left: Shoulder [employer] 01/26/2026 AR-9563-32 / / [id number] Univers Revers Suturecup 39 Neutral Implanted:Qty: 1 on 09/22/2021 by Thomas Walker MD at [facility] Left: Shoulder [employer] 02/25/2025 AR-9502F-3 9CPC / / [id number] Univers Revers Humeral Stem Size 5, 135 Deg Modular Implanted:Qty: 1 on 09/22/2021 by Thomas Walker MD at [facility] Left: Shoulder [employer] 03/28/2025 AR-9501-05 P / / [id number] Procedures Procedure Name Priority Date/Time Associated Diagnosis Comments COMPREHENSIVE METABOLIC PANEL 08/25/2022 1:58 PM APPLIED BIOLOGY PROFESSOR from Last 3 Months or Most Recently Relevant to Health Maintenance Results * (ABNORMAL) COMPREHENSIVE METABOLIC PANEL (08/25/2022 1:58 PM APPLIED BIOLOGY PROFESSOR) Glucose 268(H) 65 - 99 mg/dL [facility] [...] 46 U/L [facility] Comment: Test Performed at: [facility] [address] [place] [address] VALORIE SADLER DO,MPH 08/25/2022 1:58 PM APPLIED BIOLOGY PROFESSOR 08/25/2022 1:59 PM APPLIED BIOLOGY PROFESSOR Cristóbal Ocampo MD LAB - CHEMISTRY ORDERABLES Final Result [facility] [address] [place] [address] from Last 3 Months or Most Recently Relevant to [place] [address] ANTHKRISSY ANTHEM Care Teams Data Entry Clerk Relationship Specialty Start Date End Date Michael Torres MD [address] [facility] [address] [place] [address] PCP - General 09/05/18
--- OUTSIDE RECORDS SUMMARY | 2025-01-30 15:40 | XMS_ITS | Referral Summary ---
Author Organization [facility] al Address [address] [place] [address] Care Team Providers Care Molding Cutter Name Role Phone Michael Torres MD Primary Care Prov ider Michael Lewis MD Unavailable [phone] Allergies Active Allergy Reactions Criticality Noted Date [...] evaluation Assessment & Plan (10/06/2023 1:12 PM ORACLE HRMS CONSULTANT): Impression: Patient has triphasic waveforms to lower [...] glimeripiride. Assessment & Plan (10/06/2023 1:13 PM ORACLE HRMS CONSULTANT): Impression: Chronic and stable. Plan: Continue Januvia metformin and glimerpiride Other hyperlipidemia 10/06/2023 Assessment & Plan (10/06/2023 1:14 PM ORACLE HRMS CONSULTANT): Impression: Chronic stable. 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 Patient is currently stable. Plan: Continue Plaquenil Assessment & Plan (10/06/2023 1:15 PM ORACLE HRMS CONSULTANT): Impression: Recently diagnosed with rheumatoid arthritis. Plan: Continue Plaquenil Pain in both lower extremities 09/10/2022 Assessment & Plan (10/03/2022 10:01 PM ORACLE HRMS CONSULTANT): Edema and pain to his extremities and [...] duplex. 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 Femoral, popliteal calcification. Hx of PEVAR, sac size has increased per GARAGE HAND, Kellen [place] aneurysm. Femoral, popliteal calcification. TECHNIQUE: CTA of [...] patent. The right superficial femoral artery demonstrates dcil-ll-cwxteqzm plaque formation producing less than 50% stenosis [...] the lower extremities bilaterally. Right leg demonstrates kkte-db-mpkcbzsw stenosis through the adductor canal with additional [...] signed by Chance SANTIAGO T: Report ID: [id number] Reading Location: [place] [address] Procedure Note Chance Mckinley MD - 11/07/2023 EXAM DESCRIPTION: CTA ABDOMINAL AORTA AND BILATERAL ILIOFEMORAL RUNOFF REASON FOR STUDY: Hx of PEVAR, sac size has increased per GARAGE HAND, Kellen Debi aneurysm. Femoral, popliteal calcification. Hx of PEVAR, sac size has increased per GARAGE HAND, Kellen Debi aneurysm. Femoral, popliteal calcification. TECHNIQUE: [...] is patent. Theright superficial femoral artery demonstrates kanj-pm-liexhcbf plaque formation producing less than 50% stenosis [...] the lower extremities bilaterally. Right leg demonstrates vjlh-hr-wkdgabit stenosis through the adductorcanal with additional 50-75% [...] Chance Mckinley M.D. RB T: Report ID: [id number] Reading Location: [place] [address] Michael Lewis MD IMG CT PROCEDURES Final Re sult from Last 3 Months or Most Recently Relevant to Health Maintenance Insurance Madrone Madrone [facility] ACCESS CHOICE Care Teams Molding Cutter Relationship Specialty Start Date End Date Michael Torres MD [address] [place] [address] PCP - General Family Medicine 09/09/22 Michael Lewis MD [address] [place] [address] Surgeon Vascular Surgery 09/24/22
--- OUTSIDE RECORDS SUMMARY | 2025-01-30 15:40 | XMS_ITS | Encounter Summary ---
Author Organization [facility] Address [address] [facility] [place] [address] Care Team Providers Care Manganese Wheeler Name Role Phone Michael Torres MD Primary Care Provider + Reason for Visit * Reason Onset Date Comments MEDICATION REFILL 12/10/2020 Encounter Details Date Type Department Care Team (Late st Contact Info) Description 12/10/2020 Refill [facility] [address] [facility], [facility] [place] [id number] Becca Wilson MD [facility] [place] [address] MEDICATION REFILL Social History Tobacco Use Types Packs/Day Years Used Date Smoking Tobacco: Never Smokeless Tobacco: Never Alcohol Use Standard Drinks/Week Comments Yes 0 (1 standard drink = 0.6 oz pur e alcohol) occasionally Sex and Gender Information Value Date Recorded Sex Assigned at Male 09/18/2021 1:11 PM LIVING SKILLS ADVISOR Legal Sex Male 6:24 AM LIVING SKILLS ADVISOR Gender Identity Not on file Sexual Orientation [...] drug monitoring Encounter for therapeutic drug monitoring alf systemic steroid user documented in this encounter Care Teams Manganese Wheeler Relationship Specialty Start Date End Date Micheal Torres MD [address] [address] PCP - General 09/05/18 documented as of this encounter
[2025-01-30 16:56] LABS: Anion Gap 9 mmol/L (4-12); Blood Urea Nitrogen 18 mg/dL (9-20); Calcium 9.6 mg/dL (8.4-10.2); Carbon Dioxide 29 mmol/L (22-30); Chloride 98 mmol/L (98-107); Estimated Glomerular Filt Rate > 60; Glucose 173 mg/dL (65-110); Potassium 3.7 mmol/L (3.4-5.0); Sodium 136 mmol/L (137-145)
== END 2025-01-30 15:37 | disposition home or self-care (01) ==
PROVIDERS: PCP Family Medicine Adolescent Medicine; Visit Provider Internal Medicine Nephrology
DX: N20.0 Calculus of kidney (principal)
CPT/HCPCS: 36415; 80048

== ENCOUNTER 2025-04-22 16:08 | Outpatient (CLI) | payer BC, SELFPAY ==
--- OUTSIDE RECORDS SUMMARY | 2025-04-22 16:14 | XMS_ITS | Encounter Summary ---
Author Organization [facility] Address [address] [place] [address] Care Team Providers Care Dye Stand Loader Name Role Phone Michael Torres MD Primary Care Provider + Encounter Details Date Type Department Care Team (Late st Contact Info) Description 12/01/2021 [facility] Outpatient Visit [facility] [address] [place] [address], [facility] [place] [address] Thomas Walker MD [address] [place] [address] [place] [address] Social History Tobacco Use Types [...] Sex Assigned at Male 09/18/2021 1:11 PM SEMICONDUCTOR BONDER Legal Sex Male 6:24 AM SEMICONDUCTOR BONDER Gender Identity Not on file Sexual Orientation Not on file documented as of this encounter Plan of Treatment Not on file documented as of this encounter Visit Diagnoses Not on filedocumented in this encounter Care Teams Dye Stand Loader Relationship Specialty Start Date End Date Michael Torres MD [address] [address] PCP - General 09/05/18 documented as of this encounter
--- OUTSIDE RECORDS SUMMARY | 2025-04-22 16:15 | XMS_ITS | Clinical Summary ---
Author Organization [facility] Address [address] [place] [address] Care Team Providers Care Trade Mark Examiner Name Role Phone Michael Torres MD Primary Care Provider + Source Comments [facility],non-owned Affiliates and Associated Physician Practices is amultiple site organization consisting of ambulatory clinics and hospital sitesin [place], [place], [place] and [place]. This disclosure is being madepursuant to the Care Everywhere program and may not contain all information available regarding this patient. Last updated 18.[facility] Allergies Active Allergy Reactions Criticality Noted Date [...] 03/20/2010 Immunizations Immunization Administration Dates Next Due Ambient Devices primary monoval ent 12+ yr 0.3mL Purple [...] Sex Assigned at Male 09/18/2021 1:11 PM TRAFFIC CLERK Legal Sex Male 6:24 AM TRAFFIC CLERK Gender Identity Not on file Sexual Orientation Not on file Last Filed Vital Signs Vital Sign Reading Time Taken Comments Blood Pressure 144/86 12/27/2022 2:05 PM CDT Pulse 86 12/27/2022 2:05 PM CDT Temperature 36.3 C (97.3 F) 12/27/2022 2:05 PM CDT Respiratory Rate 16 09/22/2021 1:10 PM TRAFFIC CLERK Oxygen Saturation 96% 12/27/2022 2:05 PM CDT [...] 08/29/2024 02/10/2022 AAA SCREENING 11/01/2024 INFLUENZA VACCINE (#1) 2025 0, 06/16/2018, 06/15/2018, Additional history exists SCREENING FOR [...] this topic Medical Devices Implanted Type Area [employer] Device Identifier Shelf Expiration Date Model / Serial / Lot Univers Revers Glenoid Central Screw, Modular 35mm Implanted:Qty: 1 on 09/22/2021 by Thomas Walker MD at [facility] Left: Shoulder [employer] 12/27/2023 AR-9561-35 S / / [id number] Univers Revers Humeral Insert Medium, 39, +6 Implanted:Qty: 1 on 09/22/2021 by Thomas Walker MD at [facility] Left: Shoulder [employer] 01/26/2026 AR-9503M-0 6 / / [id number] Univers Revers Glenosphere, 39, +4 Lateralized/ 24 Implanted:Qty: 1 on 09/22/2021 by Thomas Walker MD at [facility] Left: Shoulder [employer] 04/28/2026 AR-9564-24 39-LAT / / [id number] Bsplt Glnd 24mm Arthx +2mm Shldr Mdlr Implanted:Qty: 1 on 09/22/2021 by Thomas Walker MD at [facility] Left: Shoulder [employer] 05/28/2025 AR-9560-24 -2 / / [id number] Screw 5.5mm 32mm Lck Mdlr Glnd Yvonne Implanted:Qty: 1 on 09/22/2021 by Thomas Walker MD at [facility] Left: Shoulder [employer] 01/26/2026 AR-9563-32 / / [id number] Screw 5.5mm 16mm Lck Yvonne Strl Bone Implanted:Qty: 1 on 09/22/2021 by Thomas Walker MD at [facility] Left: Shoulder [employer] 01/26/2026 AR-9563-16 / / [id number] Screw 5.5mm 24mm Lck Mdlr Glnd Yvonne Implanted:Qty: 1 on 09/22/2021 by Thomas Walker MD at [facility] Left: Shoulder [employer] 09/28/2024 AR-9563-24 / / [id number] Screw 5.5mm 32mm Lck Mdmark Glnd Yvonne Implanted:Qty: 1 on 09/22/2021 by Thomas Walker MD at [facility] Left: Shoulder [employer] 01/26/2026 AR-9563-32 / / [id number] Univers Revers Suturecup 39 Neutral Implanted:Qty: 1 on 09/22/2021 by Thomas Walker MD at [facility] Left: Shoulder [employer] 02/25/2025 AR-9502F-3 9CPC / / [id number] Univers Revers Humeral Stem Size 5, 135 Deg Modular Implanted:Qty: 1 on 09/22/2021 by Thomas Walker MD at [facility] Left: Shoulder [employer] 03/28/2025 AR-9501-05 P / / [id number] Procedures Procedure Name Priority Date/Time Associated Diagnosis Comments COMPREHENSIVE METABOLIC PANEL 08/25/2022 1:58 PM TRAFFIC CLERK from Last 3 Months or Most Recently Relevant to Health Maintenance Results * (ABNORMAL) COMPREHENSIVE METABOLIC PANEL (08/25/2022 1:58 PM TRAFFIC CLERK) Glucose 268(H) 65 - 99 mg/dL [facility] [...] 46 U/L [facility] Comment: Test Performed at: [facility] [address] [place] [address] VALORIE SADLER DO,MPH 08/25/2022 1:58 PM TRAFFIC CLERK 08/25/2022 1:59 PM TRAFFIC CLERK us Cristóbal Ocampo MD LAB - CHEMISTRY ORDERABLES Final Result [facility] [address] [place] [address] from Last 3 Months or Most Recently Relevant to Health [place] [address] ANTHKRISSY ANTHEM Care Teams Trade Mark Examiner Relationship Specialty Start Date End Date Michael Torres MD [address] [facility] [address] [place], [place] [id number] PCP - General 09/05/18
--- OUTSIDE RECORDS SUMMARY | 2025-04-22 16:15 | XMS_ITS | Clinical Summary ---
Author Organization [facility] al Address [address] [place] [address] Care Team Providers Care Chemical Inspector Name Role Phone Michael Torres MD Primary Care Prov ider Michael Lewis MD Unavailable [phone] Allergies Active Allergy Reactions Criticality Noted Date [...] evaluation Assessment & Plan (10/06/2023 1:12 PM TRAVEL NURSE): Impression: Patient has triphasic waveforms to lower [...] glimeripiride. Assessment & Plan (10/06/2023 1:13 PM TRAVEL NURSE): Impression: Chronic and stable. Plan: Continue Januvia metformin and glimerpiride Other hyperlipidemia 10/06/2023 Assessment & Plan (10/06/2023 1:14 PM TRAVEL NURSE): Impression: Chronic stable. 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 Patient is currently stable. Plan: Continue Plaquenil Assessment & Plan (10/06/2023 1:15 PM TRAVEL NURSE): Impression: Recently diagnosed with rheumatoid arthritis. Plan: Continue Plaquenil Pain in both lower extremities 09/10/2022 Assessment & Plan (10/03/2022 10:01 PM TRAVEL NURSE): Edema and pain to his extremities and [...] duplex. Assessment & Plan (09/10/2022 2:24 PM TRAVEL NURSE): Patient referred to vascular for concern of [...] mellitus (HCC) Hypercholesteremia Nephrolithiasis RA (rheumatoid arthritis) Sleep apnea Family History Medical History Relation [...] on file Legal Sex Male 8:36 AM TRAVEL NURSE Gender Identity Not on file Sexual Orientation [...] 11/03/2023 Well Visit 65+ 11/01/2024 Influenza Vaccine (#1) 2025 , 06/16/2018, 06/15/2018, Additional history exists Zoster Vaccine Completed 04/17/2022, 02/07/2022 Procedures Procedure Name Priority Date/Time Associated Diagnosis Comments CTA ABDOMINAL AORTA AND BILATERAL ILIOFEMORAL RUNOFF Schedule Routine, Read Routine (OP Routine) 11/03/2023 12:59 PM TRAVEL NURSE Popliteal artery aneurysm Atherosclerosis of [place] artery of both lower extremities with intermittent claudication from Last 3 Months or Most Recently Relevant to Health Maintenance Results * CTA Abdominal Aorta And Bilateral Iliofemoral Runoff (11/03/2023 12:59 PM TRAVEL NURSE) Anatomical Region Laterality Modality Body Bilateral Computed Tomogra phy 11/07/2023 5:12 AM CDT Narrative 11/07/2023 5:30 AM CDT EXAM DESCRIPTION: CTA ABDOMINAL AORTA AND BILATERAL ILIOFEMORAL RUNOFF REASON FOR STUDY: Hx of PEVAR, sac size has increased per WELDING OPERATOR, Kellen Dare aneurysm. Femoral, popliteal calcification. Hx of PEVAR, sac size has increased per WELDING OPERATOR, Kellen Debi aneurysm. Femoral, popliteal calcification. TECHNIQUE: [...] patent. The right superficial femoral artery demonstrates yjiu-xv-letutpsg plaque formation producing less than 50% stenosis [...] the lower extremities bilaterally. Right leg demonstrates crvn-na-fyeqtmtd stenosis through the adductor canal with additional [...] signed by Chance SANTIAGO T: Report ID: [id number] Reading Location: [id number] Procedure Note Chance Mckinley MD - 11/07/2023 EXAM DESCRIPTION: CTA ABDOMINAL AORTA AND BILATERAL ILIOFEMORAL RUNOFF REASON FOR STUDY: Hx of PEVAR, sac size has increased per WELDING OPERATOR, Kellen Dare aneurysm. Femoral, popliteal calcification. Hx of PEVAR, sac size has increased per WELDING OPERATOR, Kellen Dare aneurysm. Femoral, popliteal calcification. TECHNIQUE: CTA of [...] is patent. Theright superficial femoral artery demonstrates iyvy-em-eicjmkij plaque formation producing less than 50% stenosis [...] the lower extremities bilaterally. Right leg demonstrates cbxn-pd-cccivlwm stenosis through the adductorcanal with additional 50-75% [...] Chance Mckinley M.D. RB T: Report ID: [id number] Reading Location: [place] [address] Michael Lewis MD IMG CT PROCEDURES Final Re sult from Last 3 Months or Most Recently Relevant to Health Maintenance Insurance ANTHEM ACCESS CHOICE ANTHEM ACCESS CHOICE ANTHEM ACCESS CHOICE Care Teams Chemical Inspector Relationship Specialty Start Date End Date Michael Torres MD [address] [place] [address] PCP - General Family Medicine 09/09/22 Michael Lewis MD [address] [facility] [address] [place] [address] Surgeon Vascular Surgery 09/24/22
[2025-04-22 16:57] LABS: Add Urine Microscopic? NO; Appearance Urine Clear (Clear); Glucose Urine UA Negative (Negative); Leukocyte Esterase Ur Negative LEU/UL (Negative); Nitrate Urine Negative (Negative); Specific Grav Ur 1.007 (1.001-1.035)
[2025-04-22 17:30] LABS: Albumin Level 4.6 g/dL (3.5-5.1); Anion Gap 8 mmol/L (4-12); Blood Urea Nitrogen 19 mg/dL (9-20); Calcium 9.6 mg/dL (8.4-10.2); Carbon Dioxide 30 mmol/L (22-30); Chloride 96 mmol/L (98-107); Estimated Glomerular Filt Rate > 60; Glucose 115 mg/dL (65-110); Potassium 3.7 mmol/L (3.4-5.0); Sodium 134 mmol/L (137-145); Uric Acid 5.9 mg/dL (3.5-8.5)
== END 2025-04-22 16:09 | disposition home or self-care (01) ==
LOC: ANHLAB 16:10
PROVIDERS: PCP Family Medicine; Visit Provider Internal Medicine Nephrology
DX: N20.0 Calculus of kidney (principal)
CPT/HCPCS: 36415; 80069; 81003; 84550

== ENCOUNTER 2025-07-16 16:31 | Outpatient (CLI) | payer BC, SELFPAY ==
[2025-07-16 17:01] LABS: Hematocrit 38.7 % (42.0-52.0); Hemoglobin 12.8 g/dL (14.0-18.0); Immature Granulocyte Percent A 0.2 % (0-0.5); Lymphocytes Absolute Auto 2.00 K/mm3 (0.9-3.2); Mean Corpuscular HGB Conc 33.1 g/dl (32-36); Mean Corpuscular Hemoglobin 28.9 pg (26-34); Mean Corpuscular Volume 87.4 fl (80-100); Nucleated Red Blood Cells Absolute Auto 0.000 K/mm3 (0.0-0.012); Nucleated Red Blood Cells Perc 0.0 % (0.0-0.2); Platelet Count Result 203 k/mm3 (150-375); Red Blood Count 4.43 M/mm3 (4.6-6.20); White Blood Count 6.5 K/mm3 (4.5-10.0)
[2025-07-16 19:17] LABS: Alanine Aminotransferase 32 U/L (6-50); Albumin Level 4.5 g/dL (3.5-5.1); Alkaline Phosphatase 50 U/L (38-126); Anion Gap 8 mmol/L (4-12); Aspartate Amino Transferase 41 U/L (17-59); Bilirubin,Total 0.6 mg/dL (0.2-1.3); Blood Urea Nitrogen 19 mg/dL (9-20); CRP < 0.5 mg/dL (<1.0); Calcium 9.2 mg/dL (8.4-10.2); Carbon Dioxide 29 mmol/L (22-30); Chloride 98 mmol/L (98-107); Estimated Glomerular Filt Rate > 60; Glucose 154 mg/dL (65-110); Potassium 3.5 mmol/L (3.4-5.0); Sodium 135 mmol/L (137-145); Total Protein 7.4 g/dL (6.3-8.2)
--- OUTSIDE RECORDS SUMMARY | 2025-07-17 03:49 | XMS_ITS | Encounter Summary ---
Author Organization [facility] Health Address [address] [place] [address] Care Team Providers Care Global Sales Executive Name Role Phone Michael Torres MD Primary Care Provider + Encounter Details Date Type Department Care Team (Late st Contact Info) Description 12/01/2021 [facility] Outpatient Visit [facility] [address] [place] [address], [facility] [place] [address] Thomas Walker MD [address] [place] [address] [place] [address] Social History Tobacco Use Types [...] Sex Assigned at Male 09/18/2021 1:11 PM ANCILLARY SPECIALIST Legal Sex Male 6:24 AM ANCILLARY SPECIALIST Gender Identity Not on file Sexual Orientation Not on file documented as of this encounter Plan of Treatment Not on file documented as of this encounter Visit Diagnoses Not on filedocumented in this encounter Care Teams Global Sales Executive Relationship Specialty Start Date End Date Michael Torres MD [address] [address] PCP - General 09/05/18 documented as of this encounter
--- OUTSIDE RECORDS SUMMARY | 2025-07-17 03:49 | XMS_ITS | Encounter Summary ---
Author Organization [facility] Address [address] [facility] [place] [address] Care Team Providers Care Automotive Parts Counter Assistant Name Role Phone Michael Torres MD Primary Care Provider + Reason for Visit * Reason Onset Date Comments MEDICATION REFILL 12/10/2020 Encounter Details Date Type Department Care Team (Late st Contact Info) Description 12/10/2020 Refill [facility] [address] [facility], [facility] [place] [phone] Becca Wilson MD [facility] [place] [address] MEDICATION REFILL Social History Tobacco Use Types Packs/Day Years Used Date Smoking Tobacco: Never Smokeless Tobacco: Never Alcohol Use Standard Drinks/Week Comments Yes 0 (1 standard drink = 0.6 oz pur e alcohol) occasionally Sex and Gender Information Value Date Recorded Sex Assigned at Male 09/18/2021 1:11 PM DEICER INSPECTOR PNEUMATIC Legal Sex Male 6:24 AM DEICER INSPECTOR PNEUMATIC Gender Identity Not on file Sexual Orientation [...] drug monitoring Encounter for therapeutic drug monitoring prison systemic steroid user documented in this encounter Care Teams Automotive Parts Counter Assistant Relationship Specialty Start Date End Date Michael Torres MD [address] [address] PCP - General 09/05/18 documented as of this encounter
--- OUTSIDE RECORDS SUMMARY | 2025-07-17 03:50 | XMS_ITS | Clinical Summary ---
Author Organization [facility] al Address [address] [place] [address] Care Team Providers Care Homicide Squad Sergeant Name Role Phone Michael Torres MD Primary Care Prov ider Michael Lewis MD Unavailable [phone] Allergies Active Allergy Reactions Criticality Noted Date [...] evaluation Assessment & Plan (10/06/2023 1:12 PM GAS APPLIANCE ADJUSTER): Impression: Patient has triphasic waveforms to lower [...] glimeripiride. Assessment & Plan (10/06/2023 1:13 PM GAS APPLIANCE ADJUSTER): Impression: Chronic and stable. Plan: Continue Januvia metformin and glimerpiride Other hyperlipidemia 10/06/2023 Assessment & Plan (10/06/2023 1:14 PM GAS APPLIANCE ADJUSTER): Impression: Chronic stable. 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 Patient is currently stable. Plan: Continue Plaquenil Assessment & Plan (10/06/2023 1:15 PM GAS APPLIANCE ADJUSTER): Impression: Recently diagnosed with rheumatoid arthritis. Plan: Continue Plaquenil Pain in both lower extremities 09/10/2022 Assessment & Plan (10/03/2022 10:01 PM GAS APPLIANCE ADJUSTER): Edema and pain to his extremities and [...] duplex. Assessment & Plan (09/10/2022 2:24 PM GAS APPLIANCE ADJUSTER): Patient referred to vascular for concern of [...] History Medical History Date Comments Diabetes mellitus Hypercholesteremia Nephrolithiasis RA (rheumatoid arthritis) Sleep apnea [...] on file Legal Sex Male 8:36 AM GAS APPLIANCE ADJUSTER Gender Identity Not on file Sexual Orientation [...] - PCV) 11/01/1978 Hemoglobin A1C 03/02/2022 09/02/2021 Abdominal Aortic Aneurysm (A AA) Screen 11/01/2024 11/03/2023 Well Visit 65+ 11/01/2024 Covid-19 Vaccine (5 - 2024-2 6 season) 2025 06/24/2022, 06/14/2021, 11/18/2020, Additional history exists Influenza Vaccine (#1) 2025 , 06/16/2018, 06/15/2018, Additional history exists Zoster Vaccine Completed 04/17/2022, 02/07/2022 Procedures Procedure Name Priority Date/Time Associated Diagnosis Comments CTA ABDOMINAL AORTA AND BILATERAL ILIOFEMORAL RUNOFF Schedule Routine, Read Routine (OP Routine) 11/03/2023 12:59 PM GAS APPLIANCE ADJUSTER Popliteal artery aneurysm Atherosclerosis of [place] artery of both lower extremities with intermittent claudication from Last 3 Months or Most Recently Relevant to Health Maintenance Results * CTA Abdominal Aorta And Bilateral Iliofemoral Runoff (11/03/2023 12:59 PM GAS APPLIANCE ADJUSTER) Anatomical Region Laterality Modality Body Bilateral Computed Tomogra phy 11/07/2023 5:12 AM CDT Narrative 11/07/2023 5:30 AM CDT EXAM DESCRIPTION: CTA ABDOMINAL AORTA AND BILATERAL ILIOFEMORAL RUNOFF REASON FOR STUDY: Hx of PEVAR, sac size has increased per DISPOSAL MAN, Kellen Arenac aneurysm. Femoral, popliteal calcification. Hx of PEVAR, sac size has increased per DISPOSAL MAN, Kellen Arenac aneurysm. Femoral, popliteal calcification. TECHNIQUE: CTA of [...] patent. The right superficial femoral artery demonstrates jmkj-xk-arivpeab plaque formation producing less than 50% stenosis [...] the lower extremities bilaterally. Right leg demonstrates coqu-es-mqglaumr stenosis through the adductor canal with additional [...] Chance Mckinley M.D. RB T: Report ID: [id number] Reading Location: [id number] Procedure Note Chance Mckinley MD - 11/07/2023 EXAM DESCRIPTION: CTA ABDOMINAL AORTA AND BILATERAL ILIOFEMORAL RUNOFF REASON FOR STUDY: Hx of PEVAR, sac size has increased per DISPOSAL MAN, Kellen Arenac aneurysm. Femoral, popliteal calcification. Hx of PEVAR, sac size has increased per DISPOSAL MAN, Kellen Debi aneurysm. Femoral, popliteal calcification. TECHNIQUE: [...] is patent. Theright superficial femoral artery demonstrates uwtb-id-ktoltltv plaque formation producing less than 50% stenosis [...] the lower extremities bilaterally. Right leg demonstrates dwvv-ok-pfnhexgx stenosis through the adductorcanal with additional 50-75% [...] Chance Mckinley M.D. RB T: Report ID: [id number] Reading Location: [place] [id number] Michael Lewis MD IMG CT PROCEDURES Final Re sult from Last 3 Months or Most Recently Relevant to Health Maintenance Insurance ANTHEM ACCESS CHOICE ANTHEM ACCESS CHOICE ANTHEM ACCESS CHOICE Care Teams Homicide Squad Sergeant Relationship Specialty Start Date End Date Michael Torres MD PCP - General Family Medicine 09/09/22 Michael Lewis MD [address] [place] [address] Surgeon Vascular Surgery 09/24/22
--- OUTSIDE RECORDS SUMMARY | 2025-07-17 03:51 | XMS_ITS | Clinical Summary ---
Author Organization [facility] Address [address] [place] [address] Care Team Providers Care Meat Products Demonstrator Name Role Phone Michael Torres MD Primary Care Provider + Source Comments [facility],non-owned Affiliates and Associated Physician Practices is amultiple site organization consisting of ambulatory clinics and hospital sitesin [place], [place], [place] and [place]. This disclosure is being madepursuant to the Care Everywhere program and may not contain all information available regarding this patient. Last updated 18.[facility] Allergies Active Allergy Reactions Criticality Noted Date [...] 03/20/2010 Immunizations Immunization Administration Dates Next Due Trendzo primary monoval ent 12+ yr 0.3mL Purple [...] Sex Assigned at Male 09/18/2021 1:11 PM LINE CONSTRUCTION ENGINEER Legal Sex Male 6:24 AM LINE CONSTRUCTION ENGINEER Gender Identity Not on file Sexual Orientation Not on file Last Filed Vital Signs Vital Sign Reading Time Taken Comments Blood Pressure 144/86 12/27/2022 2:05 PM CDT Pulse 86 12/27/2022 2:05 PM CDT Temperature 36.3 C (97.3 F) 12/27/2022 2:05 PM CDT Respiratory Rate 16 09/22/2021 1:10 PM LINE CONSTRUCTION ENGINEER Oxygen Saturation 96% 12/27/2022 2:05 PM CDT [...] 11/01/2009 ZOSTER VACCINE (1 of 2) 11/01/2009 DEPRESSION SCREENING 08/29/2024 02/10/2022 AAA SCREENING 11/01/2024 COVID-19 VACCINE ( season) 2025 06/14/2021, 11/18/2020, 10/28/2020 INFLUENZA VACCINE (#1) 2025 0, 06/16/2018, 06/15/2018, [...] this topic Medical Devices Implanted Type Area Program Eligibility Specialist Device Identifier Shelf Expiration Date Model / Serial / Lot Univers Revers Glenoid Central Screw, Modular 35mm Implanted:Qty: 1 on 09/22/2021 by Thomas Walker MD at [facility] Left: Shoulder [employer] 12/27/2023 AR-9561-35 S / / [id number] [employer] Humeral Insert Medium, 39, +6 Implanted:Qty: 1 on 09/22/2021 by Thomas Walker MD at [facility] Left: Shoulder [employer] 01/26/2026 AR-9503M-0 6 / / [id number] [employer] Glenosphere, 39, +4 Lateralized/ 24 Implanted:Qty: 1 on 09/22/2021 by Thomas Walker MD at [facility] Left: Shoulder [employer] 04/28/2026 AR-9564-24 39-LAT / / [id number] Bsplt Glnd 24mm Arthx +2mm Shldr Mdlr Implanted:Qty: 1 on 09/22/2021 by Thomas Walker MD at [facility] Left: Shoulder [employer] 05/28/2025 AR-9560-24 -2 / / [id number] Screw 5.5mm 32mm Lck Mdlr Glnd Yvonne Implanted:Qty: 1 on 09/22/2021 by Thomas Walker MD at [facility] Left: Shoulder [employer] 01/26/2026 AR-9563-32 / / [id number] Screw 5.5mm 16mm Lck Yvonne Strl Bone Implanted:Qty: 1 on 09/22/2021 by Thomas Walker MD at [facility] Left: Shoulder [employer] 01/26/2026 AR-9563-16 / / [id number] Screw 5.5mm 24mm Lck Mdlr Glnd Yvonne Implanted:Qty: 1 on 09/22/2021 by Thomas Walker MD at [facility] Left: Shoulder [employer] 09/28/2024 AR-9563-24 / / [id number] Screw 5.5mm 32mm Lck Mdmark Glnd Yvonne Implanted:Qty: 1 on 09/22/2021 by Thomas Walker MD at [facility] Left: Shoulder [employer] 01/26/2026 AR-9563-32 / / [id number] [employer]vers Suturecup 39 Neutral Implanted:Qty: 1 on 09/22/2021 by Thomas Walker MD at [facility] Left: Shoulder [employer] 02/25/2025 AR-9502F-3 9CPC / / [id number] [employer] Humeral Stem Size 5, 135 Deg Modular Implanted:Qty: 1 on 09/22/2021 by Thomas Walker MD at [facility] Left: Shoulder [employer] 03/28/2025 AR-9501-05 P / / [id number] Procedures Procedure Name Priority Date/Time Associated Diagnosis Comments COMPREHENSIVE METABOLIC PANEL 08/25/2022 1:58 PM LINE CONSTRUCTION ENGINEER from Last 3 Months or Most Recently Relevant to Health Maintenance Results * (ABNORMAL) COMPREHENSIVE METABOLIC PANEL (08/25/2022 1:58 PM LINE CONSTRUCTION ENGINEER) Glucose 268(H) 65 - 99 mg/dL [facility] [...] 46 U/L [facility] Comment: Test Performed at: [facility] [address] [place] [address] VALORIE SADLER DO,MPH 08/25/2022 1:58 PM LINE CONSTRUCTION ENGINEER 08/25/2022 1:59 PM LINE CONSTRUCTION ENGINEER us Cristóbal Ocampo MD LAB - CHEMISTRY ORDERABLES Final Result [facility] [address] [place] [address] from Last 3 Months or Most Recently Relevant to Health [place] [address] ANTHKRISSY ANTHEM Care Teams Meat Products Demonstrator Relationship Specialty Start Date End Date Michael Torres MD [address] [facility] [address] [place], [place] [id number] PCP - General 09/05/18
== END 2025-07-16 16:32 | disposition home or self-care (01) ==
LOC: ANHLAB 16:34
PROVIDERS: PCP Family Medicine; Visit Provider Nurse Practitioner
DX: M06.09 Rheumatoid arthritis without rheumatoid factor, multiple sites (principal); F40.298 Other specified phobia; Z79.899 Other long term (current) drug therapy
CPT/HCPCS: 36415; 80053; 85025; 86140